=== PATIENT | male | born 1945 | race Caucasian/White ===

== ENCOUNTER 2017-10-25 16:12 | Emergency (ER) | payer MEDICARE, OTHER, SELFPAY ==
--- NOTE | 2017-10-25 16:18 | ED_ITS ---
HPI - Extremity Problem <ASHWIN Rodriguez - Last Filed: 10/25/17 19:52> General Chief complaint: Extremity Injury, Lower Stated complaint: STATES NEEDS A CORTISONE SHOT IN HIS HEEL Time Seen by Provider: 10/25/17 16:17 History of Present Illness HPI Narrative: 72-year-old male here for complaint of having heel pain into his left heel. 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 He is here requesting to have a cortisone shot to his left heel as he states this has helped him in the past. He has not seen his primary care provider for heel pain recently. He denies any trauma to the left heel. He reports increased pain when he is walking barefoot. He denies any other concerns or complaints at this time. Patient is ambulatory into the emergency room. Related Data Home Medications Medication Instructions Recorded Confirmed aspirin 81 mg PO QDAY #0 01/09/17 10/25/17 atorvastatin [Lipitor] 40 mg PO QDAY #0 01/09/17 10/25/17 citalopram 20 mg PO QDAY #0 01/09/17 10/25/17 insulin glargine [Lantus U-100 120 unit SQ QAM #0 01/09/17 10/25/17 Insulin] metformin [Glucophage XR] 1,000 mg PO BID #0 01/09/17 10/25/17 propranolol 40 mg PO BID #0 01/09/17 10/25/17 tamsulosin [Flomax] 0.4 mg PO QDAY #0 01/09/17 10/25/17 tolterodine [Detrol] 2 mg PO QDAY #0 01/09/17 10/25/17 Previous Rx's Medication Instructions Recorded ibuprofen 800 mg PO TIDP PRN #20 tab 05/07/17 Allergies Allergy/AdvReac Type Severity Reaction Status Date / Time Iodinated Contrast- Oral and Allergy Severe ANAPHALAXIS Verified 10/25/17 16:26 IV Dye [IODINATED CONTRAST- ORAL AND IV DYE] levofloxacin [LEVOFLOXACIN] Allergy Unknown SWELLING Verified 10/25/17 16:26 lisinopril [LISINOPRIL] Allergy Unknown COUGH Verified 10/25/17 16:26 Review of Systems <ASHWIN Rodriguez - Last Filed: 10/25/17 19:52> Constitutional Denies chills, Denies fever(s), Denies lethargy and Denies weakness Eyes Denies change in vision, Denies eye discharge, Denies irritation and Denies loss of vision Cardiovascular Denies chest pain, Denies irregular heart rhythm, Denies lightheadedness, Denies palpitations and Denies orthopnea Gastrointestinal Gastrointestinal: Denies abdominal pain, Denies change in bowel habits, Denies diarrhea, Denies nausea and Denies vomiting Musculoskeletal Comments: Left heel pain Integumentary/Breasts Denies pruritus, Denies erythema, Denies rash and Denies wounds Neurologic Denies loss of vision and Denies weakness Endocrine Denies palpitations Exam <ASHWIN Rodriguez - Last Filed: 10/25/17 19:52> Initial Vital Signs Initial Vital Signs: Vital Signs Temperature 98.4 F 10/25/17 16:20 Pulse Rate 78 10/25/17 16:20 Respiratory Rate 16 10/25/17 16:20 Blood Pressure 131/62 H 10/25/17 16:20 Pulse Oximetry 98 10/25/17 16:20 Const General: cooperative and well developed Nutritional Appearance: well nourished Orientation: alert, awake, oriented x3 and not confused Eyes General: appearance normal, both eyes and all related structures Eyelids: eyelids normal Conjunctivae: conjunctivae normal Sclera: sclerae normal Pupils: PERRL EOM: EOM intact bilaterally Resp Effort & Inspection: normal respiratory effort, able to speak in complete sentences, no respiratory distress and no use of accessory muscles Auscultation: clear to auscultation bilaterally, no rales, no rhonchi and no wheezes Cardio Rate: regular rate Rhythm: regular rhythm Heart Sounds: no click, no gallops, no murmurs and no rubs Extrem Other: Left heel atraumatic. No deformities. No erythema no swelling no ecchymosis. Distal sensation is intact. Full range of motion. Distal pulses intact. Pain with palpation at the anterior plantar portion of left heel. No plantar pain with palpation of. <Stiven Davis DO - Last Filed: 10/30/17 20:51> Initial Vital Signs Initial Vital Signs: Vital Signs Temperature 98.4 F 10/25/17 16:20 Pulse Rate 78 10/25/17 16:20 Respiratory Rate 16 10/25/17 16:20 Blood Pressure 131/62 H 10/25/17 16:20 Pulse Oximetry 98 10/25/17 16:20 Course <ASHWIN Rodriguez - Last Filed: 10/25/17 19:52> Vital Signs - 8 hr 10/25/17 16:20 Temperature 98.4 F Pulse Rate 78 Respiratory Rate 16 Blood Pressure 131/62 H Pulse Oximetry 98 <Stiven Davis DO - Last Filed: 10/30/17 20:51> Vital Signs - 8 hr 10/25/17 16:20 Temperature 98.4 F Pulse Rate 78 Respiratory Rate 16 Blood Pressure 131/62 H Pulse Oximetry 98 MDM - Extremity (Nontraumatic) <ASHWIN Rodriguez - Last Filed: 10/25/17 19:52> MDM Narrative Medical decision making narrative: Signs and symptoms consistent with Chronic pain related subjective report of heel spur. Patient informed that we do not do cortisone shots in the emergency room. He is instructed to follow up with primary care provider and consider podiatry referral. [id number] ibuprofen or naproxen as needed for any discomfort. Patient informed to perform stretching of the plantar region to help with symptoms. He is also instructed to wear supportive shoes with good inserts to also help his symptoms. Return emergency room for any worsening symptoms. Discharge Plan Departure Patient Disposition: Home, Self-Care Clinical Impression: Chronic heel pain Discharge Date/Time: 10/25/17 16:43 Interventions: ED Discharge Assessment Last Done: 10/25/17 16:42 Instructions: DI for Foot Pain Activity Restrictions/Additional Instructions: Recommended using [id number] ibuprofen or naproxen for your symptoms. Try stretching of the plantar regions of your feet to see if it helps symptoms. Wear supportive shoes with inserts for comfort and support. Follow up with primary care provider consider podiatry referral for continued symptoms. For any worsening symptoms return to the emergency room. Prescriptions: No Action atorvastatin [Lipitor] 40 MG tablet 40 mg PO QDAY Qty: 0 RF: 0 insulin glargine [Lantus U-100 Insulin] 100 UNIT/1 ML solution 120 unit SQ QAM Qty: 0 RF: 0 aspirin 81 MG tablet,delayed release (DR/EC) 81 mg PO QDAY Qty: 0 RF: 0 tolterodine [Detrol] 2 MG tablet 2 mg PO QDAY Qty: 0 RF: 0 citalopram 20 MG tablet 20 mg PO QDAY Qty: 0 RF: 0 tamsulosin [Flomax] 0.4 MG capsule,extended release 24hr 0.4 mg PO QDAY Qty: 0 RF: 0 propranolol 40 MG tablet 40 mg PO BID Qty: 0 RF: 0 metformin [Glucophage XR] 500 MG tablet extended release 24 hr 1,000 mg PO BID Qty: 0 RF: 0 ibuprofen 800 MG tablet 800 mg PO TIDP PRNQty: 20 RF: 0 Referrals: [facility] [Provider Group] <Stiven Davis, DO - Last Filed: 10/30/17 20:51> Cosign ED Attending Shona Attestation: I was immediately available in the department for consultation. Documentation has been reviewed. I agree with assessment and plan.
[2017-10-25 16:20] VITALS: BP 131/62; PULSE 78; RESP 16; TEMP 36.9; O2SAT 98; BMI 34.8
== END 2017-10-25 16:43 | disposition home or self-care (01) ==
PROVIDERS: Emergency Provider Nurse Practitioner Family
DX: M79.672 Pain in left foot (principal); G89.29 Other chronic pain
CPT/HCPCS: 99282

== ENCOUNTER 2018-06-10 13:59 | Emergency (ER) | payer MEDICARE, OTHER, SELFPAY ==
[2018-06-10 14:11] VITALS: BP 145/71; PULSE 81; RESP 20; TEMP 36.3; O2SAT 95
--- NOTE | 2018-06-10 16:31 | ED.EAR ---
HPI - Ear Problem General Chief complaint: Ear Stated complaint: EARS PLUGGED UP,SENSE OF BALANCE GONE Time Seen by Provider: 06/10/18 16:16 Source: patient and family () Mode of arrival: ambulatory Limitations: no limitations History of Present Illness HPI Narrative: This is a 72-year-old male who comes to the emergency department with complaint of right ear feeling full. He has a little bit of similar symptoms on the left but not as extensively. He feels like he is on airplane the can't clear his ears. He has not been able to pop his ears or clear them. He has pressure in both ears. Patient does not have any pain, he has had some nasal congestion but states he is normally congested. No fevers. No headaches. No vision changes. No numbness, no weakness. Patient states he feels very off balance like he is going to fall down. Patient states that when he lays down rolled over on his side feels like the room is spinning. He will feel little nauseated with that happens but otherwise no nausea or vomiting. No other GI or urinary symptoms. I and his significant other state that this started came on quickly the other day. He has had symptoms for over a week. Related Data Home Medications Medication Instructions Recorded Confirmed aspirin 81 mg PO QDAY #0 01/09/17 10/25/17 atorvastatin [Lipitor] 40 mg PO DAILY #0 01/09/17 06/10/18 citalopram 20 mg PO DAILY #0 01/09/17 06/10/18 insulin glargine [Lantus U-100 120 unit SQ QAM #0 01/09/17 10/25/17 Insulin] propranolol 40 mg PO BID #0 01/09/17 06/10/18 tamsulosin [Flomax] 0.4 mg PO QDAY #0 01/09/17 06/10/18 aspirin [Aspir-81] 81 mg PO DAILY 06/10/18 06/10/18 insulin lispro [Humalog KwikPen 06/10/18 Insulin] metformin 1,000 mg PO BID 06/10/18 06/10/18 tolterodine 2 mg PO DAILY 06/10/18 06/10/18 Previous Rx's Medication Instructions Recorded ibuprofen 800 mg PO TIDP PRN #20 tab 05/07/17 meclizine 25 mg PO BID-TID PRN #10 tab 06/10/18 Allergies Allergy/AdvReac Type Severity Reaction Status Date / Time Iodinated Contrast- Oral and Allergy Severe ANAPHALAXIS Verified 10/25/17 16:26 IV Dye [IODINATED CONTRAST- ORAL AND IV DYE] levofloxacin [LEVOFLOXACIN] Allergy Unknown SWELLING Verified 10/25/17 16:26 lisinopril [LISINOPRIL] Allergy Unknown COUGH Verified 10/25/17 16:26 Review of Systems Review of Systems All systems reviewed & are unremarkable except as noted in HPI and below Constitutional Denies chills, Denies fever(s), Denies headache(s) and Denies weakness ENT Ears, Nose, Mouth, and Throat: Reports as per HPI, Reports abnormal hearing (mildly decreased right), Reports vertigo, Denies ear discharge, Denies otalgia, Denies facial pain, Denies headache(s), Reports nasal congestion, Denies neck pain, Reports disequilibrium, Denies post nasal drip, Denies sinus pain, Denies sinus pressure, Denies sore throat and Denies throat swelling Cardiovascular Denies chest pain, Denies diaphoresis, Denies syncope, Denies lightheadedness and Denies dyspnea Respiratory Denies dyspnea Gastrointestinal Gastrointestinal: Denies abdominal pain, Denies change in bowel habits, Denies diarrhea, Reports nausea (with vertigo symptoms) and Denies vomiting Genitourinary Denies hematuria, Denies flank pain, Denies urinary incontinence and Denies urinary urgency Musculoskeletal Reports abnormal gait (off balance), Denies neck pain and Denies numbness Integumentary/Breasts Denies rash Neurologic Reports abnormal hearing (mildly decreased right), Reports abnormal gait (off balance), Reports vertigo, Denies syncope, Denies headache(s), Denies focal weakness, Denies numbness, Denies other visual disturbances, Denies paresthesias, Reports disequilibrium and Denies weakness Allergic/Immunologic Denies throat swelling [facility] Medical History Diabetes (Acute) Hypercholesteremia (Acute) Hypertension (Acute) Peripheral neuropathy (Acute) Surgical History S/P CABG (coronary artery bypass graft) (Acute) Social History Smoking Status: Never smoker alcohol intake: current substance use type: does not use Exam Narrative Exam Narrative: GEN: well nourished, well appearing Male: normal external examination, no penile discharge or lesions, testicles non-tender, cremasteric reflex intact, no inguinal hernias noted., alert and oriented x 3, patient appears to be in mild distress. HEENT: Atraumatic, pupils are equal round reactive to light, extraocular movements are intact, nares are clear, TMs on right is obstructed by cerumen, right able to visualize partial TM with no bulge or erythema, there is no conjunctival pallor. Throat is clear without any exudates, erythema, tonsillar enlargement or uvular deviation, no facial droop, normal speech. HEART: Regular rate and rhythm without murmur, clicks, rubs. No carotid bruits, pulses are equal in upper and lower extremities LUNGS:Lungs clear to auscultation, no wheezes, rales, crackles, chest moves symmetrically ABD:bowel sounds normal, soft, non-tender, no guarding, rebound, rigidity, no masses noted, no hepatosplenomegaly :No CVA tenderness MSCL: Non-tender, no muscle atrophy, muscles strength 5/5 upper and lower extremities, full range of motion NEURO:CN 2-12 intact, sensation normal, reflexes 2/4 upper and lower extremities. finger nose finger test normal, heel espinal test normal. Initial Vital Signs Initial Vital Signs: Vital Signs Temperature 97.3 F L 06/10/18 14:11 Pulse Rate 81 06/10/18 14:11 Respiratory Rate 20 06/10/18 14:11 Blood Pressure 145/71 H 06/10/18 14:11 Pulse Oximetry 95 06/10/18 14:11 Course Orders Ordered: Discontinued Medications Meclizine HCl (Antivert) 25 mg PO NOW ONE Stop: 06/10/18 17:05 Last Admin: 06/10/18 17:28 Dose: 25 mg Vital Signs - 8 hr 06/10/18 14:11 Temperature 97.3 F L Pulse Rate 81 Respiratory Rate 20 Blood Pressure 145/71 H Pulse Oximetry 95 Medical Decision Making Imaging Data CT scan - head: Radiologist's impression: [address] [address] [address] Scan Report Signed Patient: Alex Dunn MR#: [id number] : 1945 Acct:[id number] Age/Sex: 72 / M Date of Service: 06/10/18 Loc: ED Accession Number: [id number] Procedure: CT head/brain wo con Ordering Provider: Brooklynn Mcclure D.O. PROCEDURE: CT HEAD/BRAIN WO CON INDICATIONS: vertigo symptoms x 1 week TECHNIQUE: Noncontrast 4.5 mm thick angled axial sections acquired from the foramen magnum to the vertex, with coronal and sagittal reformats. For radiation dose reduction, the following was used: automated exposure control, adjustment of mA and/or kV according to patient size. COMPARISON: None. FINDINGS: Image quality: Excellent. CSF spaces: Basal cisterns are patent. No extra-axial fluid collections. The ventricles are symmetric in size and shape. Brain: No intracranial bleeds or masses. There is cerebral volume loss for age, with resultant ventricular and sulcal prominence. There are periventricular and deep white matter chronic small vessel ischemic changes. There is intracranial internal carotid artery atherosclerosis. Skull and face: Calvarium and visualized facial bones appear intact, without suspicious lesions. Sinuses: Visualized sinuses and mastoids are clear. IMPRESSION: Normal for age, source of current vertigo symptoms is not seen. Dictated by: Sae Wilder M.D. on 06/10/2018 at 17:27 Approved by: Sae Wilder M.D. on 06/10/2018 at 17:28 [facility] Narrative Medical decision making narrative: Patient has a significant cerumen impaction on the right, moderate on the left. After the [place] drops and irrigation ears are both almost completely clear. Patient has hearing is much better he does not have as much pressure particularly on the right side. He still has a little bit of vertigo symptoms but is actually able to walk very well without any major issues. We discussed there can be other causes, his stroke scale is negative but did get a head CT to make sure there are no other changes such as mass. With his acute onset this is unlikely. Discussed with patient causes such as labyrinthitis, as well as a variety of other causes. He is to follow up with ENT. I discussed he can try meclizine. Avoid any alcohol with this medication. Discussed signs and symptoms reasons to return. Patient ambulating without issue afterwards. Discharge Plan Departure Patient Disposition: Home Clinical Impression: Cerumen impaction Discharge Date/Time: 06/10/18 17:58 Interventions: ED Discharge Assessment Last Done: 06/10/18 17:58 Instructions: DI for Vertigo Activity Restrictions/Additional Instructions: Follow-up with primary care and/or ENT regarding your vertigo like symptoms. Call tomorrow for an appointment. You may take meclizine 1-2 tablets every 6-8 hours as needed for vertigo like symptoms. This medication can make you sleepy do not drive, perform hazards activities or make any major decisions while taking it. Return to the emergency department for fevers, sudden severe headaches, new vision changes, new weakness, numbness or difficulty with walking safely periods if you are having any other new difficulty with movement of your extremities. Prescriptions: New meclizine 25 mg tablet 25 mg PO BID-TID PRN (Reason: vertigo) Qty: 10 RF: 0 No Action atorvastatin [Lipitor] 40 MG tablet 40 mg PO DAILY Qty: 0 RF: 0 insulin glargine [Lantus U-100 Insulin] 100 UNIT/1 ML solution 120 unit SQ QAM Qty: 0 RF: 0 aspirin 81 MG tablet,delayed release (DR/EC) 81 mg PO QDAY Qty: 0 RF: 0 citalopram 20 MG tablet 20 mg PO DAILY Qty: 0 RF: 0 tamsulosin [Flomax] 0.4 MG capsule,extended release 24hr 0.4 mg PO QDAY Qty: 0 RF: 0 propranolol 40 MG tablet 40 mg PO BID Qty: 0 RF: 0 ibuprofen 800 MG tablet 800 mg PO TIDP PRNQty: 20 RF: 0 tolterodine 2 mg capsule,extended release 24hr 2 mg PO DAILY RF: 0 metformin 1,000 mg tablet 1,000 mg PO BID RF: 0 insulin lispro [Humalog KwikPen Insulin] 100 unit/mL insulin pen RF: 0 aspirin [Aspir-81] 81 mg Tablet,Delayed Release (Dr/Ec) 81 mg PO DAILY RF: 0 Referrals: Neil Christianson MD [Physician] -
--- NOTE | 2018-06-10 16:36 | ED_ITS ---
HPI - Ear Problem General Chief complaint: Ear Stated complaint: EARS PLUGGED UP,SENSE OF BALANCE GONE Time Seen by Provider: 06/10/18 16:16 Source: patient and family () Mode of arrival: ambulatory Limitations: no limitations History of Present Illness HPI Narrative: This is a 72-year-old male who comes to the emergency department with complaint of right ear feeling full. He has a little bit of similar symptoms on the left but not as extensively. He feels like he is on airplane the can't clear his ears. He has not been able to pop his ears or clear them. He has pressure in both ears. Patient does not have any pain, he has had some nasal congestion but states he is normally congested. No fevers. No headaches. No vision changes. No numbness, no weakness. Patient states he feels very off balance like he is going to fall down. Patient states that when he lays down rolled over on his side feels like the room is spinning. He will feel little nauseated with that happens but otherwise no nausea or vomiting. No other GI or urinary symptoms. I and his significant other state that this started came on quickly the other day. He has had symptoms for over a week. Related Data Home Medications Medication Instructions Recorded Confirmed aspirin 81 mg PO QDAY #0 01/09/17 10/25/17 atorvastatin [Lipitor] 40 mg PO DAILY #0 01/09/17 06/10/18 citalopram 20 mg PO DAILY #0 01/09/17 06/10/18 insulin glargine [Lantus U-100 120 unit SQ QAM #0 01/09/17 10/25/17 Insulin] propranolol 40 mg PO BID #0 01/09/17 06/10/18 tamsulosin [Flomax] 0.4 mg PO QDAY #0 01/09/17 06/10/18 aspirin [Aspir-81] 81 mg PO DAILY 06/10/18 06/10/18 insulin lispro [Humalog KwikPen 06/10/18 Insulin] metformin 1,000 mg PO BID 06/10/18 06/10/18 tolterodine 2 mg PO DAILY 06/10/18 06/10/18 Previous Rx's Medication Instructions Recorded ibuprofen 800 mg PO TIDP PRN #20 tab 05/07/17 meclizine 25 mg PO BID-TID PRN #10 tab 06/10/18 Allergies Allergy/AdvReac Type Severity Reaction Status Date / Time Iodinated Contrast- Oral and Allergy Severe ANAPHALAXIS Verified 10/25/17 16:26 IV Dye [IODINATED CONTRAST- ORAL AND IV DYE] levofloxacin [LEVOFLOXACIN] Allergy Unknown SWELLING Verified 10/25/17 16:26 lisinopril [LISINOPRIL] Allergy Unknown COUGH Verified 10/25/17 16:26 Review of Systems Review of Systems All systems reviewed & are unremarkable except as noted in HPI and below Constitutional Denies chills, Denies fever(s), Denies headache(s) and Denies weakness ENT Ears, Nose, Mouth, and Throat: Reports as per HPI, Reports abnormal hearing ( mildly decreased right), Reports vertigo, Denies ear discharge, Denies otalgia, Denies facial pain, Denies headache(s), Reports nasal congestion, Denies neck pain, Reports disequilibrium, Denies post nasal drip, Denies sinus pain, Denies sinus pressure, Denies sore throat and Denies throat swelling Cardiovascular Denies chest pain, Denies diaphoresis, Denies syncope, Denies lightheadedness and Denies dyspnea Respiratory Denies dyspnea Gastrointestinal Gastrointestinal: Denies abdominal pain, Denies change in bowel habits, Denies diarrhea, Reports nausea (with vertigo symptoms) and Denies vomiting Genitourinary Denies hematuria, Denies flank pain, Denies urinary incontinence and Denies urinary urgency Musculoskeletal Reports abnormal gait (off balance), Denies neck pain and Denies numbness Integumentary/Breasts Denies rash Neurologic Reports abnormal hearing (mildly decreased right), Reports abnormal gait (off balance), Reports vertigo, Denies syncope, Denies headache(s), Denies focal weakness, Denies numbness, Denies other visual disturbances, Denies paresthesias , Reports disequilibrium and Denies weakness Allergic/Immunologic Denies throat swelling [facility] Medical History Diabetes (Acute) Hypercholesteremia (Acute) Hypertension (Acute) Peripheral neuropathy (Acute) Surgical History S/P CABG (coronary artery bypass graft) (Acute) Social History Smoking Status: Never smoker alcohol intake: current substance use type: does not use Exam Narrative Exam Narrative: GEN: well nourished, well appearing Male: normal external examination, no penile discharge or lesions, testicles non-tender, cremasteric reflex intact, no inguinal hernias noted., alert and oriented x 3, patient appears to be in mild distress. HEENT: Atraumatic, pupils are equal round reactive to light, extraocular movements are intact, nares are clear, TMs on right is obstructed by cerumen, right able to visualize partial TM with no bulge or erythema, there is no conjunctival pallor. Throat is clear without any exudates, erythema, tonsillar enlargement or uvular deviation, no facial droop, normal speech. HEART: Regular rate and rhythm without murmur, clicks, rubs. No carotid bruits , pulses are equal in upper and lower extremities LUNGS:Lungs clear to auscultation, no wheezes, rales, crackles, chest moves symmetrically ABD:bowel sounds normal, soft, non-tender, no guarding, rebound, rigidity, no masses noted, no hepatosplenomegaly :No CVA tenderness MSCL: Non-tender, no muscle atrophy, muscles strength 5/5 upper and lower extremities, full range of motion NEURO:CN 2-12 intact, sensation normal, reflexes 2/4 upper and lower extremities. finger nose finger test normal, heel espinal test normal. Initial Vital Signs Initial Vital Signs: Vital Signs Temperature 97.3 F L 06/10/18 14:11 Pulse Rate 81 06/10/18 14:11 Respiratory Rate 20 06/10/18 14:11 Blood Pressure 145/71 H 06/10/18 14:11 Pulse Oximetry 95 06/10/18 14:11 Course Orders Ordered: Discontinued Medications Meclizine HCl (Antivert) 25 mg PO NOW ONE Stop: 06/10/18 17:05 Last Admin: 06/10/18 17:28 Dose: 25 mg Vital Signs - 8 hr 06/10/18 14:11 Temperature 97.3 F L Pulse Rate 81 Respiratory Rate 20 Blood Pressure 145/71 H Pulse Oximetry 95 Medical Decision Making Imaging Data CT scan - head: Radiologist's impression: [address] [address] [address] Scan Report Signed Patient: Alex Dunn MR#: [id number] : 1945 Acct:[id number] Age/Sex: 72 / M Date of Service: 06/10/18 Loc: ED Accession Number: [id number] Procedure: CT head/brain wo con Ordering Provider: Brooklynn Mcclure D.O. PROCEDURE: CT HEAD/BRAIN WO CON INDICATIONS: vertigo symptoms x 1 week TECHNIQUE: Noncontrast 4.5 mm thick angled axial sections acquired from the foramen magnum to the vertex, with coronal and sagittal reformats. For radiation dose reduction, the following was used: automated exposure control, adjustment of mA and/or kV according to patient size. COMPARISON: None. FINDINGS: Image quality: Excellent. CSF spaces: Basal cisterns are patent. No extra-axial fluid collections. The ventricles are symmetric in size and shape. Brain: No intracranial bleeds or masses. There is cerebral volume loss for age , with resultant ventricular and sulcal prominence. There are periventricular and deep white matter chronic small vessel ischemic changes. There is intracranial internal carotid artery atherosclerosis. Skull and face: Calvarium and visualized facial bones appear intact, without suspicious lesions. Sinuses: Visualized sinuses and mastoids are clear. IMPRESSION: Normal for age, source of current vertigo symptoms is not seen. Dictated by: Sae Wilder M.D. on 06/10/2018 at 17:27 Approved by: Sae Wilder M.D. on 06/10/2018 at 17:28 [facility] Narrative Medical decision making narrative: Patient has a significant cerumen impaction on the right, moderate on the left. After the [place] drops and irrigation ears are both almost completely clear. Patient has hearing is much better he does not have as much pressure particularly on the right side. He still has a little bit of vertigo symptoms but is actually able to walk very well without any major issues. We discussed there can be other causes, his stroke scale is negative but did get a head CT to make sure there are no other changes such as mass. With his acute onset this is unlikely. Discussed with patient causes such as labyrinthitis, as well as a variety of other causes. He is to follow up with ENT. I discussed he can try meclizine. Avoid any alcohol with this medication. Discussed signs and symptoms reasons to return. Patient ambulating without issue afterwards. Discharge Plan Departure Patient Disposition: Home Clinical Impression: Cerumen impaction Discharge Date/Time: 06/10/18 17:58 Interventions: ED Discharge Assessment Last Done: 06/10/18 17:58 Instructions: DI for Vertigo Activity Restrictions/Additional Instructions: Follow-up with primary care and/or ENT regarding your vertigo like symptoms. Call tomorrow for an appointment. You may take meclizine 1-2 tablets every 6-8 hours as needed for vertigo like symptoms. This medication can make you sleepy do not drive, perform hazards activities or make any major decisions while taking it. Return to the emergency department for fevers, sudden severe headaches, new vision changes, new weakness, numbness or difficulty with walking safely periods if you are having any other new difficulty with movement of your extremities. Prescriptions: New meclizine 25 mg tablet 25 mg PO BID-TID PRN (Reason: vertigo) Qty: 10 RF: 0 No Action atorvastatin [Lipitor] 40 MG tablet 40 mg PO DAILY Qty: 0 RF: 0 insulin glargine [Lantus U-100 Insulin] 100 UNIT/1 ML solution 120 unit SQ QAM Qty: 0 RF: 0 aspirin 81 MG tablet,delayed release (DR/EC) 81 mg PO QDAY Qty: 0 RF: 0 citalopram 20 MG tablet 20 mg PO DAILY Qty: 0 RF: 0 tamsulosin [Flomax] 0.4 MG capsule,extended release 24hr 0.4 mg PO QDAY Qty: 0 RF: 0 propranolol 40 MG tablet 40 mg PO BID Qty: 0 RF: 0 ibuprofen 800 MG tablet 800 mg PO TIDP PRNQty: 20 RF: 0 tolterodine 2 mg capsule,extended release 24hr 2 mg PO DAILY RF: 0 metformin 1,000 mg tablet 1,000 mg PO BID RF: 0 insulin lispro [Humalog KwikPen Insulin] 100 unit/mL insulin pen RF: 0 aspirin [Aspir-81] 81 mg Tablet,Delayed Release (Dr/Ec) 81 mg PO DAILY RF: 0 Referrals: Neil Christianson MD [Physician] -
--- NOTE | 2018-06-10 17:03 | DI.CT.S_ITS ---
PROCEDURE: CT HEAD/BRAIN WO CON INDICATIONS: vertigo symptoms x 1 week TECHNIQUE: Noncontrast 4.5 mm thick angled axial sections acquired from the foramen magnum to the vertex, with coronal and sagittal reformats. For radiation dose reduction, the following was used: automated exposure control, adjustment of mA and/or kV according to patient size. COMPARISON: None. FINDINGS: Image quality: Excellent. CSF spaces: Basal cisterns are patent. No extra-axial fluid collections. The ventricles are symmetric in size and shape. Brain: No intracranial bleeds or masses. There is cerebral volume loss for age, with resultant ventricular and sulcal prominence. There are periventricular and deep white matter chronic small vessel ischemic changes. There is intracranial internal carotid artery atherosclerosis. Skull and face: Calvarium and visualized facial bones appear intact, without suspicious lesions. Sinuses: Visualized sinuses and mastoids are clear. IMPRESSION: Normal for age, source of current vertigo symptoms is not seen. Dictated by: Sae Wilder M.D. on 06/10/2018 at 17:27 Approved by: Sae Wilder M.D. on 06/10/2018 at 17:28
[2018-06-10] MEDS: MECLIZINE HCL 12.5 MG TABLET 25 MG PO (17:28)
[2018-06-10 17:40] VITALS: BP 145/85; PULSE 75; RESP 16; O2SAT 92
[2018-06-10 17:58] VITALS: BP 148/64; PULSE 64; RESP 14; TEMP 36.3; O2SAT 100
== END 2018-06-10 17:58 | disposition home or self-care (01) ==
PROVIDERS: Emergency Provider Emergency Medicine
DX: H61.20 Impacted cerumen, unspecified ear (principal); R42 Dizziness and giddiness
CPT/HCPCS: 69209; 70450; 99283

== ENCOUNTER → 2018-08-21 10:35 | Outpatient (CLI) | payer MEDICARE, OTHER, SELFPAY ==
[2018-08-21 11:14] LABS: Add Manual Diff / Slide Review NO; Basophils Absolute Auto 100 /uL (0-100); Basophils Percent Auto 0.8 % (0-2); Eosinophils Absolute Auto 200 /uL (0-450); Eosinophils Percent Auto 2.2 % (2-4); Hemoglobin 13.4 g/dL (13.5-17.5); Lymphocytes Absolute Auto 1500 /uL (1100-4500); Lymphocytes Percent Auto 18.7 % (25-40); Mean Corpuscular HGB Conc 33.6 % (30-36); Mean Corpuscular Hemoglobin 30.8 PG (26-34); Mean Corpuscular Volume 91.7 fL (80-100); Monocytes Absolute Auto 900 /uL (0-900); Monocytes Percent Auto 11.3 % (3-14); Neutrophils Absolute Auto 5500 /uL (1500-7000); Platelet Count 389 X10^3/uL (150-400); Red Blood Cell Count 4.36 X10^6/uL (4.5-5.9); Red Cell Distribution Width 13.4 % (11.6-14.8); White Blood Cell Count 8.2 X10^3/uL (4.5-11.0)
[2018-08-21 11:16] LABS: Hemoglobin A1C% w Est Avg Glu 8.4 % (4.0-6.0)
[2018-08-21 12:13] LABS: HEMOLYSIS < 15 (0-50); Iron 70 ug/dL (49-181)
[2018-08-21 12:17] LABS: BUN Creatinine Ratio 28.9 (6-22); Blood Urea Nitrogen 26 mg/dL (9-20); Calcium 9.4 mg/dL (8.4-10.2); Carbon Dioxide 28 mmol/L (22-32); Chloride 99 mmol/L (98-107); Estimated Glomerular Filt Rate > 60.0 mL/min (>60); Glucose 89 mg/dL (80-110); HEMOLYSIS 20 (0-50); Sodium 140 mmol/L (137-145)
[2018-08-21 12:18] LABS: Potassium 6.1 mmol/L (3.4-5.1)
[2018-08-21 12:24] LABS: Percent Iron Saturation 23 % (20-50); Total Iron Binding Capacity 306 ug/dL (261-462); Transferrin 234 mg/dL (206-381)
[2018-08-21 12:33] LABS: Vitamin D 25 Hydroxy (D3) 25.1 ng/mL (30.0-100.0)
== END ==
PROVIDERS: PCP Student in an Organized Health Care Education/Training Program; Visit Provider Student in an Organized Health Care Education/Training Program
DX: E11.69 Type 2 diabetes mellitus with other specified complication (principal); E66.9 Obesity, unspecified; I10 Essential (primary) hypertension; E55.9 Vitamin D deficiency, unspecified; K92.2 Gastrointestinal hemorrhage, unspecified
CPT/HCPCS: 36415; 80048; 82306; 83036; 83540; 83550; 85025

== ENCOUNTER → 2018-09-02 08:55 | Outpatient (CLI) | payer MEDICARE, OTHER, SELFPAY ==
--- NOTE | 2018-09-02 08:57 | DI.US.S_ITS ---
PROCEDURE: US ABD AORTA ANEURYSM SCREEN INDICATIONS: ABDOMINAL AORTIC ANEURYSM SCREENING IN FORMER SMOKER TECHNIQUE: Real time scanning was performed of the aorta and iliac arteries, with image documentation. COMPARISON: None. FINDINGS: Aorta: Proximal aortic diameter measures 2.8 cm. Mid-aorta measures 2.5 cm. The distal aorta is not seen, secondary to overlying bowel gas. Iliac arteries: Right common iliac artery measures 1.9 cm. Left common iliac artery measures 1.7 cm. IMPRESSION: Negative for abdominal aortic aneurysm, although the proximal is near the upper limits of normal for size at 2.8 cm. Dictated by: Nicola Reina M.D. on 09/02/2018 at 9:00 Approved by: Nicola Reina M.D. on 09/02/2018 at 9:02
== END ==
PROVIDERS: PCP Student in an Organized Health Care Education/Training Program; Visit Provider Student in an Organized Health Care Education/Training Program
DX: Z13.6 Encounter for screening for cardiovascular disorders (principal); Z87.891 Personal history of nicotine dependence
CPT/HCPCS: 76706

== ENCOUNTER → 2018-12-10 14:14 | Outpatient (CLI) | payer MEDICARE, OTHER, SELFPAY ==
--- NOTE | 2018-12-10 14:16 | DI.RAD.S_ITS ---
PROCEDURE: XR FOOT LT MIN 3V INDICATIONS: foot infection TECHNIQUE: 3 views of the foot were acquired. COMPARISON: None. FINDINGS: Bones: No fractures or dislocations. No suspicious bony lesions. Screw arthrodesis of the first MTP joint. There is chronic osseous fusion. Hardware appears intact there is expected postoperative alignment. 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 Prominent plantar and posterior calcaneal spur. Mild diffuse MTP joint degeneration. Chronic callus formation involving the second metatarsal shaft. Soft tissues: No tibiotalar joint effusion. Achilles tendon appears normal. IMPRESSION: Severe great toe interphalangeal joint degeneration. Status post surgical fusion of the first MTP joint. Plantar and posterior calcaneal spur. Diffuse posttraumatic and degenerative changes as above. Dictated by: Henry Moreno M.D. on 12/10/2018 at 15:00 Approved by: Henry Moreno M.D. on 12/10/2018 at 15:02
== END ==
PROVIDERS: PCP Student in an Organized Health Care Education/Training Program; Visit Provider Hospitalist
DX: L08.9 Local infection of the skin and subcutaneous tissue, unspecified (principal); M19.072 Primary osteoarthritis, left ankle and foot; M77.32 Calcaneal spur, left foot; Z98.1 Arthrodesis status
CPT/HCPCS: 36415; 73630; 80048; 82043; 82570; 83036; 84133; 85025; 87070; 87075; 87147; 87186; 87205

== ENCOUNTER → 2018-12-10 14:15 | Outpatient (CLI) | payer MEDICARE, OTHER, SELFPAY ==
[2018-12-10 15:36] LABS: Blood Urea Nitrogen 22 mg/dL (9-20); Calcium 9.6 mg/dL (8.4-10.2); Carbon Dioxide 28 mmol/L (22-32); Chloride 101 mmol/L (98-107); Estimated Glomerular Filt Rate > 60.0 mL/min (>60); Glucose 157 mg/dL (80-110); HEMOLYSIS < 15 (0-50); Potassium 5.2 mmol/L (3.4-5.1); Sodium 142 mmol/L (137-145)
[2018-12-10 15:42] LABS: Add Manual Diff / Slide Review NO; Basophils Absolute Auto 0 /uL (0-100); Basophils Percent Auto 0.5 % (0-2); Eosinophils Absolute Auto 100 /uL (0-450); Eosinophils Percent Auto 1.3 % (2-4); Hematocrit 42.1 % (41-53); Hemoglobin 14.1 g/dL (13.5-17.5); Lymphocytes Absolute Auto 1900 /uL (1100-4500); Lymphocytes Percent Auto 17.9 % (25-40); Mean Corpuscular HGB Conc 33.5 % (30-36); Mean Corpuscular Hemoglobin 31.5 PG (26-34); Mean Corpuscular Volume 93.9 fL (80-100); Monocytes Absolute Auto 1300 /uL (0-900); Monocytes Percent Auto 11.9 % (3-14); Neutrophils Absolute Auto 7200 /uL (1500-7000); Neutrophils Percent Auto 68.4 % (50-75); Platelet Count 277 X10^3/uL (150-400); Red Blood Cell Count 4.49 X10^6/uL (4.5-5.9); Red Cell Distribution Width 13.7 % (11.6-14.8); White Blood Cell Count 10.5 X10^3/uL (4.5-11.0)
[2018-12-10 16:10] LABS: Hemoglobin A1C% w Est Avg Glu 7.2 % (4.0-6.0)
[2018-12-10 17:21] LABS: Creatinine Urine Random 147.7 mg/dL; Potassium Urine Random 38.8 mmol/L
[2018-12-10 20:17] LABS: Microalbumi Creatinin Ratio Ur 322.2 ug/mg CR (<30); Microalbumin Urine Random 47.6 mg/dL (0-1.6)
== END ==
PROVIDERS: PCP Student in an Organized Health Care Education/Training Program; Visit Provider Hospitalist
DX: E11.621 Type 2 diabetes mellitus with foot ulcer (principal); L97.509 Non-pressure chronic ulcer of other part of unspecified foot with unspecified severity; E66.9 Obesity, unspecified; E87.5 Hyperkalemia; I10 Essential (primary) hypertension
CPT/HCPCS: 36415; 80048; 82043; 82570; 83036; 84133; 85025; 87070; 87075; 87205

== ENCOUNTER → 2018-12-17 14:51 | Outpatient (CLI) | payer MEDICARE, OTHER, SELFPAY | PROVIDERS: PCP Student in an Organized Health Care Education/Training Program; Visit Provider Family Medicine | DX: E11.621 Type 2 diabetes mellitus with foot ulcer (principal); E11.40 Type 2 diabetes mellitus with diabetic neuropathy, unspecified; L97.521 Non-pressure chronic ulcer of other part of left foot limited to breakdown of skin | CPT/HCPCS: 11042; 99203; 99213 ==

== ENCOUNTER → 2018-12-24 11:17 | Outpatient (CLI) | payer MEDICARE, OTHER, SELFPAY | PROVIDERS: PCP Student in an Organized Health Care Education/Training Program; Visit Provider Family Medicine | DX: E11.621 Type 2 diabetes mellitus with foot ulcer (principal); E11.40 Type 2 diabetes mellitus with diabetic neuropathy, unspecified; L97.521 Non-pressure chronic ulcer of other part of left foot limited to breakdown of skin | CPT/HCPCS: 97597 ==

== ENCOUNTER → 2018-12-31 10:29 | Outpatient (CLI) | payer MEDICARE, OTHER, SELFPAY | PROVIDERS: PCP Student in an Organized Health Care Education/Training Program; Visit Provider Family Medicine | DX: E11.621 Type 2 diabetes mellitus with foot ulcer (principal); E11.40 Type 2 diabetes mellitus with diabetic neuropathy, unspecified; L97.521 Non-pressure chronic ulcer of other part of left foot limited to breakdown of skin; R60.0 Localized edema | CPT/HCPCS: 97597 ==

== ENCOUNTER → 2019-01-07 08:54 | Outpatient (CLI) | payer MEDICARE, OTHER, SELFPAY | PROVIDERS: PCP Student in an Organized Health Care Education/Training Program; Visit Provider Family Medicine | DX: E11.621 Type 2 diabetes mellitus with foot ulcer (principal); E11.40 Type 2 diabetes mellitus with diabetic neuropathy, unspecified; L97.521 Non-pressure chronic ulcer of other part of left foot limited to breakdown of skin; R60.0 Localized edema | CPT/HCPCS: 97597 ==

== ENCOUNTER → 2019-01-15 09:15 | Outpatient (CLI) | payer MEDICARE, OTHER, SELFPAY | PROVIDERS: PCP Student in an Organized Health Care Education/Training Program; Visit Provider Family Medicine | DX: E11.621 Type 2 diabetes mellitus with foot ulcer (principal); L97.522 Non-pressure chronic ulcer of other part of left foot with fat layer exposed | CPT/HCPCS: 99212 ==

== ENCOUNTER → 2019-01-16 12:08 | Outpatient (CLI) | payer MEDICARE, OTHER, SELFPAY ==
[2019-01-16 12:43] LABS: Hematocrit 38.5 % (41-53); Hemoglobin 12.9 g/dL (13.5-17.5); Mean Corpuscular HGB Conc 33.6 % (30-36); Mean Corpuscular Hemoglobin 30.9 PG (26-34); Mean Corpuscular Volume 92.2 fL (80-100); Platelet Count 249 X10^3/uL (150-400); Red Blood Cell Count 4.17 X10^6/uL (4.5-5.9); Red Cell Distribution Width 14.4 % (11.6-14.8)
== END ==
PROVIDERS: Family Provider Student in an Organized Health Care Education/Training Program; PCP Student in an Organized Health Care Education/Training Program; Visit Provider Podiatrist
DX: Z01.818 Encounter for other preprocedural examination (principal)
CPT/HCPCS: 36415; 85027; 93005; 93010

== ENCOUNTER 2019-02-13 08:14 | Day surgery (SDC) | payer MEDICARE, OTHER, SELFPAY ==
[2019-02-12 12:36] VITALS: BMI 36.6
[2019-02-13 08:45] VITALS: BP 157/90; PULSE 76; RESP 18; TEMP 36.1; O2SAT 96
[2019-02-13 08:52] VITALS: BMI 35.9
[2019-02-13] MEDS: LACTATED RINGERS 1,000 ML 42 ML IV (08:58)
[2019-02-13 09:02] VITALS: TEMP 37.4
--- NOTE | 2019-02-13 09:07 | SUR.PREOP ---
pt surgery being cancelled at this time and will be rescheduled for another time. Dr. Bettencourt cancelling procedure related to blood sugar reading and recent urinary complaints. Dr. Bettencourt called and spoke with pt's pcp and scheduled appt for pt to be seen with pcp today. pt iv dc'd and intact.
== END 2019-02-13 09:07 | disposition home or self-care (01) ==
LOC: OR 08:17
PROVIDERS: Family Provider Student in an Organized Health Care Education/Training Program; PCP Student in an Organized Health Care Education/Training Program; Visit Provider Podiatrist
PROC: (CPT 28285; principal; 2019-02-13 09:00)
DX: M20.42 Other hammer toe(s) (acquired), left foot (principal); M19.072 Primary osteoarthritis, left ankle and foot; E11.621 Type 2 diabetes mellitus with foot ulcer; E11.42 Type 2 diabetes mellitus with diabetic polyneuropathy; Z53.09 Procedure and treatment not carried out because of other contraindication; R31.0 Gross hematuria
CPT/HCPCS: 28108; J2405; J2704; J3010

== ENCOUNTER → 2019-02-13 15:15 | Outpatient (CLI) | payer MEDICARE, OTHER, SELFPAY ==
[2019-02-13 15:44] LABS: Appearance Urine UA SL CLOUDY; Bilirubin Urine UA NEGATIVE (NEGATIVE); Color Urine UA YELLOW; Glucose Urine UA TRACE g/dL (Negative); Ketones Urine UA NEGATIVE (NEGATIVE); Leukocyte Esterase Urine UA 1+ (NEGATIVE); Nitrite Urine UA POSITIVE (Negative); Occult Blood Urine UA 3+ (Negative); Protein Urine UA 2+ (Negative); Urobilinogen Urine UA 0.2 E.U./dL (0.2)
[2019-02-13 16:14] LABS: RBC Urine 1-5/HPF (0-5/HPF); Squamous Epithelial Cell Urine 0-1 /HPF (0-5/HPF); WBC Urine 10-30/HPF (0-5/HPF)
[2019-02-13 16:15] LABS: Bacteria Urine Many (>30); Culture Indicated Urine Specimen Cultured
== END ==
PROVIDERS: PCP Student in an Organized Health Care Education/Training Program; Visit Provider Student in an Organized Health Care Education/Training Program
DX: R30.0 Dysuria (principal); R31.9 Hematuria, unspecified
CPT/HCPCS: 81001; 87077; 87086; 87186

== ENCOUNTER 2019-03-28 09:12 | Day surgery (SDC) | payer MEDICARE, BC, SELFPAY ==
[2019-03-27 13:45] VITALS: BMI 36.6
[2019-03-28] VITALS (7 sets, daily range): BP systolic 123–142; BP diastolic 56–80; PULSE 75–85; RESP 15–20; TEMP 36.4–37.2; O2SAT 94–98; BMI 36.6
[2019-03-28] MEDS: LACTATED RINGERS 1,000 ML 42 ML IV (10:02)
--- NOTE | 2019-03-28 10:21 | PM.PREOP ---
Pre-operative Note Interval Note History & Physical reviewed/Exam performed by Physician: Yes Changes to H&P: No
--- NOTE | 2019-03-28 10:22 | PM.OP.1 ---
Operative Date/Time/Diagnoses Date of procedure: 03/28/19 Time of procedure: 10:22 Pre-op diagnosis: Left great hammertoe, bone spur Post-op diagnosis: same Procedure & Clinicians Procedure: Left great toe exostectomy Indications: Prominent spur of bone great toe pushing into second toe creating concern for wound. Conservative measures failed to alleviate this and he wished to have surgical intervention at this time. The discussion of reducing this one and also the more dorsomedial joint were reviewed, but after discussion, we both decided for healing purposes and the mechanics of the toe, we prefer to do the lateral one rather than both of them, unless there was an easy extension into that area without considerable disruption of healing or prior fusion. No contraindications to the procedure at this time. Surgeon: Victoria Bettencourt Click Yes if Unassisted: Yes Anesthesia Type: General Operative Notes Closure Type: primary Specimen(s): none sent Estimated Blood Loss (mL): 20 Blood products transfused: none Procedure in detail: The patient was brought to the operating room and placed on the operating table in the supine position. Tourniquet was placed about the left ankle. Patient is well- padded and appropriately supported. After induction of general anesthesia the left foot and ankle were prepped and draped in the usual aseptic manner. The tourniquet was inflated. The hallux was protected at the nail with an opsite dressing. Incision was made over the 1st interphalangeal joint dorsolaterally. The incision was deepened through subcutaneous tissues being careful to identify and retract all vital neurovascular structures. All bleeders were cauterized and ligated as necessary. The capsule was entered at the joint and this exposed the spurring and prominence of the interphalangeal base, and portion of a small spur on the dorsal joint. The saw, rongeur, and rasp were used to resect the joint spurs and prominences, and I was able to reduce a portion of the dorsal ossicle as well. A rasp was used to reduce the sharp edges of the bone. The area was irrigated with copious amounts normal sterile saline. Subcutaneous closure was closed performed with Vicryl. The tourniquet was deflated and a prompt hyperemic response was seen in the foot. Nylon suture used to close the skin. The foot was dressed with a lightly compressive sterile dressing. Patient was then placed in a postoperative shoe and transferred to PACU with vital signs stable. Complications: none Post-operative Condition: stable Disposition: PACU Plan for aftercare: Following a period of postoperative monitoring, the patient be discharged home on written and oral postoperative instructions including keeping the dressing dry and intact, avoiding significant ambulation on the foot, elevating the foot when seated home. DVT prevention techniques have been reviewed. Post op visit with me next week and I'll eval the suture removal time frame at that point.
[2019-03-28] MEDS: CEFAZOLIN 2 GM/100 ML FROZ.PIGGY IV (10:25)
--- NOTE | 2019-03-28 10:51 | SUR.OPER ---
Supine on padded OR bed, head on pillow, arms secured on padded arm boards at <90 degrees abduction, legs uncrossed, safety belt at thigh, bump under left hip, tape over blanket over right lower leg.
[2019-03-28] MEDS: BUPIVACAINE 0.5% (PF) VIAL 10 ML INJ (11:04)
[2019-03-28] MEDS: LIDOCAINE 2% INJ SDV 5 ML INJ (11:05)
== END 2019-03-28 12:55 | disposition home or self-care (01) ==
LOC: OR 09:16
PROVIDERS: PCP Student in an Organized Health Care Education/Training Program; Visit Provider Podiatrist
PROC: (CPT 28285; principal; 2019-03-28 10:45)
DX: M20.42 Other hammer toe(s) (acquired), left foot (principal); M25.775 Osteophyte, left foot; M77.8 Other enthesopathies, not elsewhere classified; M19.072 Primary osteoarthritis, left ankle and foot; E11.42 Type 2 diabetes mellitus with diabetic polyneuropathy; Z79.4 Long term (current) use of insulin; E66.9 Obesity, unspecified; G47.33 Obstructive sleep apnea (adult) (pediatric); I25.10 Atherosclerotic heart disease of native coronary artery without angina pectoris; Z95.1 Presence of aortocoronary bypass graft; I25.2 Old myocardial infarction
CPT/HCPCS: 28124; J0690; J2405; J2704; J3010

== ENCOUNTER 2019-04-10 12:49 | Day surgery (SDC) | payer MEDICARE, BC, SELFPAY ==
[2019-04-10 13:10] VITALS: BP 157/80; PULSE 82; RESP 15; TEMP 36; O2SAT 96; BMI 34.5
--- NOTE | 2019-04-10 13:35 | PM.HP.1 ---
History of Present Illness History of Present Illness Date Patient Seen: 04/10/19 Time Patient Seen: 13:36 Chief complaint: [address]03 SCREENING COLONOSCOPY Narrative: Patient presents for colorectal screening. Most recent colonoscopy was 10 years ago reportedly normal. On further history denies any recent gastrointestinal symptoms. No nausea, vomiting, abdominal pain, loss of appetite, unexplained weight loss, change in bowel habits, diarrhea, constipation, melena, hematochezia, or bright red blood per rectum. Patient History Medical History Cataracts, bilateral (Chronic ~2017) Cellulitis (Inactive) Depression (Acute) Diabetes (Chronic ~1988) Hepatitis (Resolved ~1966) HLD (hyperlipidemia) (Acute) Hypercholesteremia (Chronic) Hypertension (Chronic) Leishmaniasis (Chronic ~2015) Microalbuminuria (Acute) Peripheral neuropathy (Chronic) Psoriasis (Chronic ~1968) Serous otitis media (Inactive) UTI (urinary tract infection) (Acute 02/13/19) Vertigo (Chronic ~2017) Surgical History Anesthesia (Resolved) History of angioplasty (Resolved ~1985) History of laminectomy (Resolved) Hx of appendectomy (Acute) Hx of cholecystectomy (Acute) S/P CABG (coronary artery bypass graft) (Resolved ~1985) Family & Social History Family History Father Cancer Mother Heart disease Grandfather Heart disease Grandmother Heart disease Grandfather Heart disease Grandmother Heart disease Social History: household members spouse Tobacco & Substance use: Smoking Status Former smoker alcohol intake current alcohol intake frequency a few times a month Substance Use Type does not use Meds Home Medications and Allergies Home Medications Medication Instructions Recorded Confirmed Type aspirin 81 mg PO QDAY #0 01/09/17 04/10/19 History insulin glargine 100 unit/mL 60 unit SUBCUT BID #0 ml 12/18/18 04/10/19 History subcutaneous solution atorvastatin 40 mg tablet 40 mg PO DAILY #90 tab 01/01/19 04/10/19 Rx candesartan 4 mg tablet 2 mg PO DAILY #90 tab 01/01/19 04/10/19 Rx citalopram 20 mg tablet 20 mg PO DAILY #90 tab 01/01/19 04/10/19 Rx metformin 1,000 mg tablet 1,000 mg PO BID #180 tab 01/01/19 04/10/19 Rx propranolol 40 mg tablet 40 mg PO BID #180 tab 01/01/19 04/10/19 Rx tamsulosin 0.4 mg capsule 0.4 mg PO QDAY #90 cap 01/01/19 04/10/19 Rx tolterodine 2 mg capsule,extended 2 mg PO DAILY #90 cap 01/01/19 04/10/19 Rx release 24 hr glipizide 5 mg tablet 5 mg PO BID #180 tab 02/04/19 04/10/19 Rx Allergies Allergy/AdvReac Type Severity Reaction Status Date / Time Iodinated Contrast Media Allergy Severe ANAPHALAXIS Verified 03/28/19 09:50 [IODINATED CONTRAST- ORAL AND IV DYE] levofloxacin [LEVOFLOXACIN] Allergy Unknown Hives Verified 03/28/19 09:50 lisinopril [LISINOPRIL] Allergy Unknown COUGH Verified 03/28/19 09:50 Review of Systems Review of Systems ROS Unobtainable: All systems reviewed & are unremarkable except as noted in HPI and below Exam Vital Signs (past 8 hours): - 04/10/19 13:10 Temperature 96.8 F L Pulse Rate 82 Respiratory Rate 15 Blood Pressure 157/80 H Pulse Oximetry 96 Oxygen Delivery Method Room Air Narrative Exam Narrative: General-no acute distress, well nourished HEENT-moist mucous membranes, no scleral icterus Neck-supple, no lymphadenopathy Chest- non labored respirations, clear to auscultation bilaterally Cardiac-regular rate no peripheral edema Abdomen-soft, nontender, non distended Extremities-warm, well perfused Neurological-alert and oriented, no focal deficits Assessment & Plan Assessment and plan (1) Screening for colon cancer: Current visit: Yes Status: Acute Assessment & Plan narrative: The patient requires colorectal screening and colonoscopy is recommended. Technical details were discussed. Risks, benefits, alternatives explained. Risks including but not limited to myocardial infarction, aspiration, bleeding, pain, missed lesion, incomplete examination, need for further radiographic studies, colonic perforation, and need for major abdominal surgery were discussed. All questions were answered to their satisfaction, and they are in agreement with this plan.
[2019-04-10] MEDS: SODIUM CHLORIDE 0.9% 1,000 ML 200 ML IV (13:36)
[2019-04-10] MEDS: fentaNYL 250 MCG/5 ML INJ IV (13:53)
[2019-04-10] MEDS: MIDAZOLAM 5 MG/5 ML VIAL IV (14:04)
--- NOTE | 2019-04-10 14:14 | PM.OP.ENDO ---
Operative Date/Time/Diagnoses Date of procedure: 04/10/19 Time of procedure: 14:15 Pre-op diagnosis: Screening colonoscopy Post-op diagnosis: same Procedure & Clinicians Study performed: Colonoscopy Same procedure as scheduled: Yes Indications: This is a 73-year-old male with a previously normal colonoscopy 10 years ago presents for screening. Surgeon: Sal Vaca Procedure Notes SCOAP/Timeout: Performed Procedure in detail: Patient placed in left lateral decubitus position. Time out was performed. Procedural sedation was administered with Versed and Fentanyl. A rectal exam demonstrated no external hemorrhoids no internal masses. Colonoscopy scope was placed into the rectum and advanced through the colon to the cecum. The ileocecal valve was identified. The scope was then slowly withdrawn examining colon thoroughly in all directions. The colonoscopy was notable for the following 1. Sigmoid diverticulosis 2. Quality of prep excellent Scope withdrawal time: 10 Sedation minutes: 20 Findings: diverticulosis Specimen(s): none sent Complications: none Impression: Normal colonoscopy Post-procedure Recommendations: Colonscopy in 10 years Disposition: same day surgery
[2019-04-10 14:18] VITALS: BP 147/80; PULSE 75; RESP 18; TEMP 36.6; O2SAT 93
[2019-04-10 14:22] VITALS: BP 145/86; PULSE 74; RESP 17; O2SAT 94
[2019-04-10 14:27] VITALS: BP 145/74; PULSE 78; RESP 16; O2SAT 97
[2019-04-10 14:38] VITALS: BMI 34.5
[2019-04-10 14:50] VITALS: BP 153/80; PULSE 75; RESP 16; TEMP 36.7; O2SAT 98
== END 2019-04-10 14:56 | disposition home or self-care (01) ==
PROVIDERS: PCP Student in an Organized Health Care Education/Training Program; Visit Provider Surgery
PROC: 0DJD8ZZ Inspection of Lower Intestinal Tract, Via Natural or Artificial Opening Endoscopic (ICD-10-PCS; CPT 45378; principal; 2019-04-10 13:45)
DX: Z12.11 Encounter for screening for malignant neoplasm of colon (principal); E11.9 Type 2 diabetes mellitus without complications; E78.5 Hyperlipidemia, unspecified; I10 Essential (primary) hypertension; Z79.4 Long term (current) use of insulin; K57.30 Diverticulosis of large intestine without perforation or abscess without bleeding
CPT/HCPCS: G0121; 99152; J2250; J3010

== ENCOUNTER → 2019-04-24 15:19 | Outpatient (ROUT) | payer MEDICARE, BC, SELFPAY | PROVIDERS: PCP Student in an Organized Health Care Education/Training Program; Visit Provider Podiatrist | DX: T81.30XA Disruption of wound, unspecified, initial encounter (principal) | CPT/HCPCS: 87070; 87075; 87077; 87147; 87186; 87205 ==

== ENCOUNTER → 2019-04-25 14:43 | Outpatient (CLI) | payer MEDICARE, BC, SELFPAY | PROVIDERS: PCP Student in an Organized Health Care Education/Training Program; Visit Provider Family Medicine | DX: E11.621 Type 2 diabetes mellitus with foot ulcer (principal); L97.526 Non-pressure chronic ulcer of other part of left foot with bone involvement without evidence of necrosis; E11.40 Type 2 diabetes mellitus with diabetic neuropathy, unspecified; Z79.4 Long term (current) use of insulin | CPT/HCPCS: 11044; 99214 ==

== ENCOUNTER 2019-04-25 15:54 | Inpatient (IN) | payer MEDICARE, BC, SELFPAY ==
[2019-04-25] VITALS (7 sets, daily range): BP systolic 106–145; BP diastolic 50–84; PULSE 89–100; RESP 16–22; TEMP 36.6–37.3; O2SAT 94–98; BMI 36.7
--- NOTE | 2019-04-25 16:41 | ED_ITS ---
HPI - Fever General Chief Complaint: Fever Stated Complaint: LEFT FOOT INFECTION FEVER Time Seen by Provider: 04/25/19 16:00 Source: patient Mode of arrival: Wheelchair Limitations: no limitations History of Present Illness HPI Narrative: 73M diabetic former smoker presents at the request of wound care for evaluation of a rapidly worsening presumed cellulitis of his left foot. Patient had a bone spur Miles a off his left great toe about 1 month ago and has been having way describes as some complications ever since. He had been seen wound care and Orthopedics in follow-up but today wound care noted dramatic ally worsening redness of the great toe extending on the dorsum of his foot and a perceived red streak up to his ankle. The patient has had low-grade measured fever as well as shaking chills and fatigue. Recent wound culture notes Staph aureus Related Data Home Medications Medication Instructions Recorded Confirmed aspirin 81 mg PO QDAY #0 01/09/17 04/10/19 insulin glargine 100 unit/mL 60 unit SUBCUT BID #0 ml 12/18/18 04/10/19 subcutaneous solution Previous Rx's Medication Instructions Recorded atorvastatin 40 mg tablet 40 mg PO DAILY #90 tab 01/01/19 candesartan 4 mg tablet 2 mg PO DAILY #90 tab 01/01/19 citalopram 20 mg tablet 20 mg PO DAILY #90 tab 01/01/19 metformin 1,000 mg tablet 1,000 mg PO BID #180 tab 01/01/19 propranolol 40 mg tablet 40 mg PO BID #180 tab 01/01/19 tamsulosin 0.4 mg capsule 0.4 mg PO QDAY #90 cap 01/01/19 tolterodine 2 mg capsule,extended 2 mg PO DAILY #90 cap 01/01/19 release 24 hr glipizide 5 mg tablet 5 mg PO BID #180 tab 02/04/19 Allergies Allergy/AdvReac Type Severity Reaction Status Date / Time Iodinated Contrast Media Allergy Severe ANAPHALAXIS Verified 03/28/19 09:50 [IODINATED CONTRAST- ORAL AND IV DYE] levofloxacin [LEVOFLOXACIN] Allergy Unknown Hives Verified 03/28/19 09:50 lisinopril [LISINOPRIL] Allergy Unknown COUGH Verified 03/28/19 09:50 Review of Systems Constitutional Constitutional: Reports chills, Reports fatigue, Reports fever(s), Denies frequent falls, Denies lethargy and Reports weakness Eyes Eyes: Denies change in vision, Denies eye discharge, Denies irritation and Denies loss of vision ENT Ears, Nose, Mouth, and Throat: Denies change in voice, Denies dizziness, Denies neck pain, Denies sore throat and Denies throat swelling Cardiovascular Cardiovascular: Denies chest pain, Denies irregular heart rhythm, Denies lightheadedness, Denies palpitations, Denies dyspnea, Denies dyspnea on exertion and Denies orthopnea Respiratory Respiratory: Denies cough, Denies dyspnea, Denies dyspnea on exertion and Denies wheezing Gastrointestinal Gastrointestinal: Denies abdominal pain, Denies change in bowel habits, Denies diarrhea, Denies nausea and Denies vomiting Genitourinary Genitourinary: Denies hematuria, Denies flank pain, Denies urinary incontinence and Denies urinary urgency Musculoskeletal Musculoskeletal: Denies back pain, Denies muscle weakness, Denies neck pain, Denies numbness and Denies tingling Integumentary/Breasts Skin/Breast: Denies pruritus, Reports erythema, Denies rash and Reports wounds Neurologic Neurologic: Denies behavioral changes, Denies confusion, Denies dizziness, Denies frequent falls, Denies loss of vision, Denies numbness, Denies tingling and Reports weakness Psychiatric Psychiatric: Denies anxiety, Denies behavioral changes, Denies confusion, Denies depression, Denies homicidal ideation and Denies suicidal ideation Endocrine Endocrine: Reports fatigue, Denies flushing and Denies palpitations Hematologic/Lymphatic Hematologic/Lymphatic: Denies easy bruising Allergic/Immunologic Allergic/Immunologic: Denies urticaria, Denies throat swelling and Denies wheezing Patient History Medical History Cataracts, bilateral (Chronic ~2018) Cellulitis (Inactive) Depression (Acute) Diabetes (Chronic ~1988) Hepatitis (Resolved ~1966) HLD (hyperlipidemia) (Acute) Hypercholesteremia (Chronic) Hypertension (Chronic) Leishmaniasis (Chronic ~2015) Microalbuminuria (Acute) Peripheral neuropathy (Chronic) Psoriasis (Chronic ~1968) Serous otitis media (Inactive) UTI (urinary tract infection) (Acute 02/13/19) Vertigo (Chronic ~2017) Surgical History Anesthesia (Resolved) History of angioplasty (Resolved ~1985) History of laminectomy (Resolved) Hx of appendectomy (Acute) Hx of cholecystectomy (Acute) S/P CABG (coronary artery bypass graft) (Resolved ~1985) Family History Father Cancer Mother Heart disease Grandfather Heart disease Grandmother Heart disease Grandfather Heart disease Grandmother Heart disease Social History household members: spouse Smoking Status: Former smoker alcohol intake: current substance use type: does not use alcohol intake frequency: a few times a month Substance Use Type: does not use Exam Narrative Exam Narrative: GENERAL: 73 year old patient appears stated age. Well- nourished, well-developed patient, in mild distress, clearly not feeling well HEAD: Atraumatic. Normocephalic. EYES: Pupils equal round and reactive. Extraocular motions intact. No scleral icterus. No injection or drainage. ENT: Nose without bleeding, purulent drainage. Throat without erythema, tonsillar hypertrophy or exudate. Airway patent. NECK: Trachea midline. Non tender CARDIOVASCULAR: Regular rate and rhythm without murmurs, gallops, or rubs. RESPIRATORY: Clear to auscultation. Breath sounds equal bilaterally. No wheezes, rales, or rhonchi. GASTROINTESTINAL: Abdomen soft, non-tender, nondistended. EXTREMITIES: Erythema tenderness and warmth to the left great toe and dorsum of left foot. No obvious drainage from toe. BACK: Nontender without deformity or crepitance. No flank tenderness. NEURO: AOx3. SKIN: No rash or erythema of visible areas Initial Vital Signs Initial Vital Signs: Vital Signs Temperature 99.1 F 04/25/19 16:00 Pulse Rate 100 H 04/25/19 16:00 Respiratory Rate 22 04/25/19 16:00 Blood Pressure 132/84 04/25/19 16:00 Pulse Oximetry 98 04/25/19 16:00 Course Orders Ordered: ED Orders 04/25/19 16:30 Blood Culture Stat Complete Blood Count AUTO DIFF Stat 04/25/19 16:41 XR foot LT min 3V Stat 04/25/19 17:02 C-Reactive Protein Quant Stat Comprehensive Metabolic Panel Stat Erythrocyte Sedimentation Rate Stat Lactate (Lactic Acid) Stat Vancomycin HCl/Dextrose (Vancomycin) 1,500 mg in 300 mls @ 200 mls/hr IV NOW ONE Stop: 04/25/19 18:52 Last Admin: 04/25/19 17:33 Dose: 200 mls/hr Documented by: JAIRON Consultations Consultation #1: call to bautista Reyes, happy to be involved in consult if needed call to Dr. De Luna, happy to accept Vital Signs Vital signs: Vital Signs - 8 hr 04/25/19 16:00 04/25/19 16:36 04/25/19 17:05 Temperature 99.1 F Pulse Rate 100 H 95 H 93 H Respiratory Rate 22 18 16 Blood Pressure 132/84 Blood Pressure [Right Arm] 145/82 H 129/69 Pulse Oximetry 98 94 94 04/25/19 18:23 Temperature Pulse Rate 93 H Respiratory Rate 18 Blood Pressure Blood Pressure [Right Arm] 129/66 Pulse Oximetry 95 MDM - Fever Lab Data Result diagrams: 04/25/19 16:30 04/25/19 17:02 Labs: Lab Results 04/25/19 04/25/19 04/25/19 Range/Units 16:30 17:02 17:02 WBC 15.2 H (4.5-11.0) X10^3/uL RBC 3.96 L (4.5-5.9) X10^6/uL Hgb 12.1 L (13.5-17.5) g/dL Hct 35.9 L (41-53) % MCV 90.8 (80-100) fL MCH 30.6 (26-34) PG MCHC 33.7 (30-36) % RDW 15.0 H (11.6-14.8) % Plt Count 233 (150-400) X10^3/uL Neut % (Auto) 87.7 H (50-75) % Lymph % (Auto) 3.9 L (25-40) % Valley % (Auto) 8.0 (3-14) % Eos % (Auto) 0.1 L (2-4) % Baso % (Auto) 0.3 (0-2) % Neut # (Auto) 78696 H (6773-4047) /uL Lymph # (Auto) 600 L (0448-9346) /uL Valley # (Auto) 1200 H (0-900) /uL Eos # (Auto) 0 (0-450) /uL Baso # (Auto) 100 (0-100) /uL ESR (0-15) MM/HR Sodium 135 L (137-145) mmol/L Potassium 4.1 (3.4-5.1) mmol/L Chloride 97 L (98-107) mmol/L Carbon Dioxide 29 (22-32) mmol/L BUN 26 H (9-20) mg/dL Creatinine 0.90 (0.66-1.25) mg/dL Estimated GFR > 60.0 (>60) mL/min BUN/Creatinine Ratio 28.9 H (6-22) Glucose 199 H (80-110) mg/dL Lactate 2.2 H (0.7-2.1) mmol/L Calcium 8.6 (8.4-10.2) mg/dL Total Bilirubin 1.0 (0.2-1.3) mg/dL AST 27 (17-59) IU/L ALT 24 (<50) IU/L Alkaline Phosphatase 68 (38-126) U/L C-Reactive Protein (<1.0) mg/dL Total Protein 6.9 (6.3-8.2) g/dL Albumin 4.3 (3.5-5.0) g/dL Globulin 2.6 (1.7-4.1) g/dL Albumin/Globulin Ratio 1.7 (1.0-2.8) 04/25/19 04/25/19 Range/Units 17:02 17:02 WBC (4.5-11.0) X10^3/uL RBC (4.5-5.9) X10^6/uL Hgb (13.5-17.5) g/dL Hct (41-53) % MCV (80-100) fL MCH (26-34) PG MCHC (30-36) % RDW (11.6-14.8) % Plt Count (150-400) X10^3/uL Neut % (Auto) (50-75) % Lymph % (Auto) (25-40) % Valley % (Auto) (3-14) % Eos % (Auto) (2-4) % Baso % (Auto) (0-2) % Neut # (Auto) (4236-3347) /uL Lymph # (Auto) (5006-1733) /uL Valley # (Auto) (0-900) /uL Eos # (Auto) (0-450) /uL Baso # (Auto) (0-100) /uL ESR 59 H (0-15) MM/HR Sodium (137-145) mmol/L Potassium (3.4-5.1) mmol/L Chloride (98-107) mmol/L Carbon Dioxide (22-32) mmol/L BUN (9-20) mg/dL Creatinine (0.66-1.25) mg/dL Estimated GFR (>60) mL/min BUN/Creatinine Ratio (6-22) Glucose (80-110) mg/dL Lactate (0.7-2.1) mmol/L Calcium (8.4-10.2) mg/dL Total Bilirubin (0.2-1.3) mg/dL AST (17-59) IU/L ALT (<50) IU/L Alkaline Phosphatase (38-126) U/L C-Reactive Protein 16.0 H (<1.0) mg/dL Total Protein (6.3-8.2) g/dL Albumin (3.5-5.0) g/dL Globulin (1.7-4.1) g/dL Albumin/Globulin Ratio (1.0-2.8) Discharge Plan Departure Patient Disposition: Admitted As Inpatient Clinical Impression: Cellulitis of great toe of left foot Osteomyelitis Qualifiers: Osteomyelitis type: unspecified type Osteomyelitis location: foot Laterality: left Qualified Code(s): M86.9 - Osteomyelitis, unspecified
--- NOTE | 2019-04-25 16:41 | DI.RAD.S_ITS ---
PROCEDURE: XR FOOT LT MIN 3V INDICATIONS: recent procedure, worsening pain, redness TECHNIQUE: 3 views of the foot were acquired. COMPARISON: [facility], CR, XR FOOT LT MIN 3V, 12/10/2018, 14:14. FINDINGS: Bones: Postsurgical fixation at the first MTP joint is noted. Hardware is intact and there is good anatomic alignment. Severe degenerative change with areas of subchondral sclerosis and cyst formation are noted at the first DIP joint. Questionable areas of erosion are identified. Soft tissues: Soft tissue edema surrounding the first digit as well as areas of lucency within the soft tissue at the DIP joint are noted. Achilles tendon appears normal. IMPRESSION: Postsurgical changes with areas of questionable interval erosion at the first DIP joint with soft tissue edema. Overall appearance raises concern for infection and potential osteomyelitis. Dictated by: Gricelda France M.D. on 04/25/2019 at 17:03 Approved by: Gricelda France M.D. on 04/25/2019 at 17:04
[2019-04-25 16:43] LABS: Add Manual Diff / Slide Review NO; Basophils Absolute Auto 100 /uL (0-100); Basophils Percent Auto 0.3 % (0-2); Eosinophils Absolute Auto 0 /uL (0-450); Eosinophils Percent Auto 0.1 % (2-4); Hematocrit 35.9 % (41-53); Hemoglobin 12.1 g/dL (13.5-17.5); Lymphocytes Absolute Auto 600 /uL (1100-4500); Lymphocytes Percent Auto 3.9 % (25-40); Mean Corpuscular HGB Conc 33.7 % (30-36); Mean Corpuscular Hemoglobin 30.6 PG (26-34); Mean Corpuscular Volume 90.8 fL (80-100); Monocytes Absolute Auto 1200 /uL (0-900); Neutrophils Absolute Auto 13400 /uL (1500-7000); Neutrophils Percent Auto 87.7 % (50-75); Platelet Count 233 X10^3/uL (150-400); Red Blood Cell Count 3.96 X10^6/uL (4.5-5.9); White Blood Cell Count 15.2 X10^3/uL (4.5-11.0)
[2019-04-25 17:30] LABS: Alanine Aminotransferase 24 IU/L (<50); Albumin 4.3 g/dL (3.5-5.0); Albumin Globulin Ratio 1.7 (1.0-2.8); Alkaline Phosphatase 68 U/L (38-126); Aspartate Aminotransferase 27 IU/L (17-59); BUN Creatinine Ratio 28.9 (6-22); Blood Urea Nitrogen 26 mg/dL (9-20); Calcium 8.6 mg/dL (8.4-10.2); Carbon Dioxide 29 mmol/L (22-32); Chloride 97 mmol/L (98-107); Estimated Glomerular Filt Rate > 60.0 mL/min (>60); Globulin 2.6 g/dL (1.7-4.1); Glucose 199 mg/dL (80-110); HEMOLYSIS < 15 (0-50); Lactate (Lactic Acid) 2.2 mmol/L (0.7-2.1); Potassium 4.1 mmol/L (3.4-5.1); Sodium 135 mmol/L (137-145); Total Protein 6.9 g/dL (6.3-8.2)
[2019-04-25] MEDS: VANCOMYCIN 1,500 MG/300 ML FROZ.PIGGY 200 MG IV (17:33)
[2019-04-25 17:37] LABS: Erythrocyte Sedimentation Rate 59 MM/HR (0-15)
[2019-04-25 19:11] LABS: Reflexed Lactate in 2 Hours Y
--- NOTE | 2019-04-25 19:57 | P.HP_ITS ---
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 On 03/28/2019 patient underwent a left hallux exostectomy for a bone spur. Patient has been following with Dr. Victoria Bettencourt at [facility]. After surgical procedure patient has developed progressive redness, edema, and purulence from surgical wound site. In the past 24 hours he has been having rigors and generalized malaise. Patient was seen at the [facility] earlier in the day, now with concern for worsening edema and erythema. Erythema now with spread to mid foot. He continues to have purulent drainage. Patient is known to have diabetic polyneuropathy w/loss of sensation in the left foot being more than the right at baseline. On 04/24, wound culture grew Staph aureus for which he was prescribed ciprofloxacin 500 mg QID, taken 5 total doses. Today, bone biopsy was obtained. Patient does have a remote history of cellulitis in right lower extremity. No prior history of MRSA. Initial lab work from the ED was remarkable for WBC 15.2 lactate 2.2 ESR 59 CRP 16. XR of the left foot raised concern for osteomyelitis. ED Presentation & Work-Up VS, 04/25 1600. T 99.1 BP 132/84 HR 100 RR 22 SpO2 98% Labs, 04/25/19 1702 WBC 15.2 ESR 59 CRP 16 Lactate 2.2 HGB 12.1 PLT 233 Na 135 K 4.1 Cl 97 Ca 8.6 ALB 4.3 Glu 199 CO2 29 BUN 26 Cr 0.9 BUN:Cr 28.9 T.Bili 1.0 AST 27 ALT 24 Alk Phos 68 XR LEFT FOOT. Postsurgical fixation at the first MTP joint. Hardware is intact and there is good anatomic alignment. Severe degenerative change with areas of subchondral sclerosis and cyst formation are noted at the first DIP joint. Soft tissue edema surrounding the first digit as well as areas of lucency within the soft tissue at the DIP joint. Achilles tendon appears normal. Post-surgical changes with areas of questionable interval erosion at the first DIP joint with soft tissue edema. Overall appearance raises concern for infection and potential osteomyelitis. In ED was treated w/ vancomycin 1.5 mg (726). Patient is being admitted for treatment of cellulitis and osteomyelitis. Patient History Medical History Cataracts, bilateral (Chronic ~2017) Cellulitis (Inactive) Depression (Acute) Diabetes (Chronic ~1988) Hepatitis (Resolved ~1966) HLD (hyperlipidemia) (Acute) Hypercholesteremia (Chronic) Hypertension (Chronic) Leishmaniasis (Chronic ~2015) Microalbuminuria (Acute) Peripheral neuropathy (Chronic) Psoriasis (Chronic ~1968) Serous otitis media (Inactive) UTI (urinary tract infection) (Acute 02/13/19) Vertigo (Chronic ~2017) Surgical History Anesthesia (Resolved) History of angioplasty (Resolved ~1985) History of laminectomy (Resolved) Hx of appendectomy (Acute) Hx of cholecystectomy (Acute) S/P CABG (coronary artery bypass graft) (Resolved ~1985) Family & Social History Family History Father Cancer Mother Heart disease Grandfather Heart disease Grandmother Heart disease Grandfather Heart disease Grandmother Heart disease Social History: household members spouse Tobacco & Substance use: Smoking Status Former smoker, 2 ppd for 20 yrs, quit 1985 alcohol intake current 2 drinks per week alcohol intake frequency a few times a month Substance Use Type does not use Meds Home Medications and Allergies Home Medications Medication Instructions Recorded Confirmed Type aspirin 81 mg PO QDAY #0 01/09/17 04/25/19 History insulin glargine 100 unit/mL 60 unit SUBCUT BID #0 ml 12/18/18 04/25/19 History subcutaneous solution candesartan 4 mg tablet 2 mg PO DAILY #90 tab 01/01/19 04/25/19 Rx citalopram 20 mg tablet 20 mg PO DAILY #90 tab 01/01/19 04/25/19 Rx metformin 1,000 mg tablet 1,000 mg PO BID #180 tab 01/01/19 04/25/19 Rx propranolol 40 mg tablet 40 mg PO BID #180 tab 01/01/19 04/25/19 Rx tamsulosin 0.4 mg capsule 0.4 mg PO QDAY #90 cap 01/01/19 04/25/19 Rx tolterodine 2 mg capsule,extended 2 mg PO DAILY #90 cap 01/01/19 04/25/19 Rx release 24 hr glipizide 5 mg tablet 5 mg PO BID #180 tab 02/04/19 04/25/19 Rx atorvastatin [Lipitor] 40 mg PO QPM 04/25/19 04/25/19 History cephalexin 500 mg PO TID 04/25/19 04/25/19 History melatonin 10 mg PO BEDTIME 04/25/19 04/25/19 History Allergies Allergy/AdvReac Type Severity Reaction Status Date / Time Iodinated Contrast Media Allergy Severe ANAPHALAXIS Verified 03/28/19 09:50 [IODINATED CONTRAST- ORAL AND IV DYE] levofloxacin [LEVOFLOXACIN] Allergy Unknown Hives Verified 03/28/19 09:50 lisinopril [LISINOPRIL] Allergy Unknown COUGH Verified 03/28/19 09:50 Review of Systems Review of Systems ROS Unobtainable: All systems reviewed & are unremarkable except as noted in HPI and below Respiratory Comments: wheezing at times, progressive worsening exertional dyspnea Exam Vital Signs (past 8 hours): - 04/25/19 16:00 04/25/19 16:36 04/25/19 17:05 Temperature 99.1 F Pulse Rate 100 H 95 H 93 H Respiratory Rate 22 18 16 Blood Pressure 132/84 Blood Pressure [Right Arm] 145/82 H 129/69 Pulse Oximetry 98 94 94 04/25/19 18:23 04/25/19 19:12 04/25/19 19:30 Temperature 98.5 F Pulse Rate 93 H 94 H 89 Respiratory Rate 18 18 20 Blood Pressure 127/69 Blood Pressure [Right Arm] 129/66 106/50 L Pulse Oximetry 95 95 95 Oxygen Delivery Method Room Air Narrative Exam Narrative: Constitutional: No overt distress, appears stated age, obese habitus BMI 36.8 Neurologic: AOx3, no focal neurological deficits, BUE tremor present at rest Head: NC, AT Eyes: PERRL, EOMI, Ears: external ears normal, no otorrhea Nose: external nose normal, no rhinorrhea or epistaxis Throat: MMM, oropharynx w/o exudate Neck: no masses, lymphadenopathy, or JVD Chest / Respiratory: Equal chest rise. Labored respiratory effort at rest - tachypneic, noted to be mildly dyspneic on exertion Breath sounds diminished, no wheezing. No crackles. Heart / CV: S1S2, no murmur Abdomen / GI: round, moderate to large distention, moderately firm last BM 04/24. no tenderness, + BS : no suprapubic tenderness, no CVA Peripheral / Vascular: RLE no edema, DP palpable, sensation diminished LLE edema 1+ Below foot / ankle 2+ pitting erythema present at the left great toe w/ spread to mid-foot ulcer 2nd phalanx DP and PT pulse difficulty to palpate, doppleable absent sensation, no cyanosis, No tenderness at the calf bilaterally Musc: full ROM of upper and lower extremities, adequate muscle tone and bulk Skin: abdomen + bruises at different stages of healing draining wound left great toe w/ surrounding edema, erythema, and calor w/ spread to mid foot ulcer stage 2 2nd phalanx Objective Labs Result Diagrams: 04/26/19 05:07 04/26/19 05:07 Labs: Laboratory Results - last 24 hr 04/25/19 04/25/19 04/25/19 16:30 17:02 17:02 WBC 15.2 H RBC 3.96 L Hgb 12.1 L Hct 35.9 L MCV 90.8 MCH 30.6 MCHC 33.7 RDW 15.0 H Plt Count 233 Neut % (Auto) 87.7 H Lymph % (Auto) 3.9 L [place] % (Auto) 8.0 Eos % (Auto) 0.1 L Baso % (Auto) 0.3 Neut # (Auto) 47697 H Lymph # (Auto) 600 L [place] # (Auto) 1200 H Eos # (Auto) 0 Baso # (Auto) 100 ESR Sodium 135 L Potassium 4.1 Chloride 97 L Carbon Dioxide 29 BUN 26 H Creatinine 0.90 Estimated GFR > 60.0 BUN/Creatinine Ratio 28.9 H Glucose 199 H Lactate 2.2 H Calcium 8.6 Total Bilirubin 1.0 AST 27 ALT 24 Alkaline Phosphatase 68 C-Reactive Protein Total Protein 6.9 Albumin 4.3 Globulin 2.6 Albumin/Globulin Ratio 1.7 04/25/19 04/25/19 17:02 17:02 WBC RBC Hgb Hct MCV MCH MCHC RDW Plt Count Neut % (Auto) Lymph % (Auto) [place] % (Auto) Eos % (Auto) Baso % (Auto) Neut # (Auto) Lymph # (Auto) [place] # (Auto) Eos # (Auto) Baso # (Auto) ESR 59 H Sodium Potassium Chloride Carbon Dioxide BUN Creatinine Estimated GFR BUN/Creatinine Ratio Glucose Lactate Calcium Total Bilirubin AST ALT Alkaline Phosphatase C-Reactive Protein 16.0 H Total Protein Albumin Globulin Albumin/Globulin Ratio Assessment & Plan Assessment & Plan narrative: Patient is admitted under observation status for left hallux cellulitis / osteomyelitis Cellulitis of left great toe, acute, present on admission, active - concern for osteomyelitis - wbc 15.2 lactate 2.2 ESR 59 CRP 16, no evidence of sepsis at this time - recent wound cx, collected in the outpatient clinic positive for Staph aureus (per ED communication) - blood cx, collected in ED, results pending - additional labs: UA (now), CBC and BMP in am - started on vancomycin in ED (1st dose, 04/25 1733), continue vancomycin, pharmacy to dose - wound care daily clean foot w/ hibiclens, toe wound irrigate w/ saline, cover w/ Aquacell or Aquacell AG dressing, wrap w/ gauze Osteomyelitis of left great toe, acute / suspected, present on admission, active - bone biopsy per patient, will need to verify - consider mri foot foot to confirm or eval extent, if no pending bone biopsy - currently being treated w/ vancomycin Ddiabetic ulcer, acute, present on admission, active - location left 2nd phallanx, limited to breakdown of skin Dyspnea w/ exertion, acute on chronic, present on admission - ongoing, worsening - s/p left hallux exostectomy on 03/28/2019 - check BNP result reviewed: 264, mildly elevated - consider LLE U/S to r/o DVT - consider echo in the outpatient setting DM 2T, insulin dependent, present on admission, active - Suboptimally controlled, A1C 7.2% (12/2018) - Associated complications of polyneuropathy - FIELD SALES REPRESENTATIVE regimen: metformin 1000 mg BID, glipizide 5 mg BID, lantus 60 units BID, not on short acting insulin hold metformin and glipizide during inpatient stay resume lantus 60 units BID add short acting insulin, per sliding protocol glu poc ac/hs ok to resume diet: heart healthy, carb consistent Normocytic anemia, present on admission, active - Hgb 12.1 g/dL, trend w/ routine lab, asymptomatic - Hold off on iron studies, given active infection, recommend outpatient follow up Essential HTN, chronic condition, present on admission, stable / controlled - Continue trending BP - Resume FI[employer] SALES REPRESENTATIVE regimen of candesartan and propranolol w/ hold parameters, hold for SBP < 110 mmHg CAD, chronic condition, present on admission, active - Exertional dyspnea, progressively worsening. No active CP, palpitations, di zziness/lightheadedness - Does not follow w/ cardiology outpatient - Remote h/o NM 1985 s/p balloon angioplasty, 3v-CABG years later - Positive RF: HTN, DM, HLD, obesity, prior tobacco use, FHx - Continue w/ risk factor optimization, resume ASA 81 mg QD and atorvastatin 40 mg QD Code status discussed. Full Code. Patient states that he has a formal health directive. Notes partner Juan Carlos as proxy decision maker. Home medications reviewed and reconciled accordingly. VTE prophylaxis w/ lovenox only, SCDs contraindicated d/t LLE cellulitis
[2019-04-25 20:00] LABS: Lactate 2HR (Lactic Acid Rflx) 1.3 mmol/L (0.7-2.1)
--- NOTE | 2019-04-25 20:52 | PC.ADMIT ---
Pt to acute care from ER. A/O. Denies pain. Left great toe erythemic/swollen, serosang drainage on gauze pad between big/second toe. Surrounding tissue/toes also erythemic. Psoriasis patchy/dry skin areas on extremities. Pt also has stg1/pressure on coccyx/into gluteal cleft. Skin is red and non blanchable. Pt educated on position changes and independently turned to left side. Neuropathy and no feeling in bilateral feet. Oriented to room/call light. Assisted pt to call spouse, Juan Carlos, to get meds/doses verified. [email or web address] Admission Note: The patient,Alex Dunn,73 y/o, was given written information regarding hospital policies, unit procedures and contact persons. Patient's smoking status: Former smoker. Vital Signs - 8 hr 04/25/19 16:00 04/25/19 16:36 04/25/19 17:05 Temperature 99.1 F Pulse Rate 100 H 95 H 93 H Respiratory Rate 22 18 16 Blood Pressure 132/84 Blood Pressure [Right Arm] 145/82 H 129/69 Pulse Oximetry 98 94 94 04/25/19 18:23 04/25/19 19:12 04/25/19 19:30 Temperature 98.5 F Pulse Rate 93 H 94 H 89 Respiratory Rate 18 18 20 Blood Pressure 127/69 Blood Pressure [Right Arm] 129/66 106/50 L Pulse Oximetry 95 95 95
[2019-04-25 22:05] LABS: B Type Natriuretic Peptide 264 (<100)
[2019-04-25] MEDS: ATORVASTATIN 20 MG TABLET 40 MG PO (22:12)
[2019-04-25] MEDS: INSULIN GLARGINE 100 UNIT/ML 3ML PEN 60 UNIT SUBCUT (22:46)
[2019-04-25] MEDS: PROPRANOLOL 40 MG TABLET PO (22:47)
[2019-04-25 23:19] LABS: Appearance Urine UA CLEAR; Bilirubin Urine UA NEGATIVE (NEGATIVE); Color Urine UA YELLOW; Glucose Urine UA TRACE g/dL (Negative); Ketones Urine UA NEGATIVE (NEGATIVE); Leukocyte Esterase Urine UA NEGATIVE (NEGATIVE); Nitrite Urine UA NEGATIVE (Negative); Occult Blood Urine UA 2+ (Negative); Protein Urine UA TRACE (Negative); Urobilinogen Urine UA 0.2 E.U./dL (0.2); pH Urine UA 5.5 (4.5-8.0)
[2019-04-25 23:26] LABS: Bacteria Urine Occasional (0-1); Mucus Urine 1+ (Negative); RBC Urine 0-1/HPF (0-5/HPF); Squamous Epithelial Cell Urine 0-1 /HPF (0-5/HPF); WBC Urine 0-1/HPF (0-5/HPF)
[2019-04-25 23:27] LABS: Culture Indicated Urine Cult Not Indicated
[2019-04-26] MEDS: MELATONIN 3 MG TABLET 9 MG PO ×2 (02:20→20:39)
[2019-04-26 03:24] VITALS: BP 126/64; PULSE 79; RESP 16; TEMP 36.7; O2SAT 94
[2019-04-26] MEDS: VANCOMYCIN 1,000 MG/200 ML PIGGYBACK 150 MG IV (04:33)
[2019-04-26] MEDS: ONDANSETRON 4 MG ODT PO (04:34)
[2019-04-26] MEDS: SODIUM CHLORIDE 0.9% FLUSH 10 ML IV ×3 (04:35→21:09)
[2019-04-26] MEDS: SODIUM CHLORIDE 0.9% 250 ML 21 ML IV (04:35)
[2019-04-26 05:36] LABS: Add Manual Diff / Slide Review NO; Basophils Absolute Auto 0 /uL (0-100); Basophils Percent Auto 0.4 % (0-2); Eosinophils Absolute Auto 0 /uL (0-450); Eosinophils Percent Auto 0.1 % (2-4); Hematocrit 33.3 % (41-53); Hemoglobin 11.5 g/dL (13.5-17.5); Lymphocytes Absolute Auto 1100 /uL (1100-4500); Lymphocytes Percent Auto 10.8 % (25-40); Mean Corpuscular HGB Conc 34.5 % (30-36); Mean Corpuscular Hemoglobin 31.3 PG (26-34); Mean Corpuscular Volume 90.6 fL (80-100); Monocytes Absolute Auto 1300 /uL (0-900); Monocytes Percent Auto 12.6 % (3-14); Neutrophils Absolute Auto 7800 /uL (1500-7000); Neutrophils Percent Auto 76.1 % (50-75); Platelet Count 186 X10^3/uL (150-400); Red Blood Cell Count 3.68 X10^6/uL (4.5-5.9); Red Cell Distribution Width 14.6 % (11.6-14.8); White Blood Cell Count 10.2 X10^3/uL (4.5-11.0)
--- NOTE | 2019-04-26 05:41 | PC.NURSE ---
Pt admitted with cellulitis of left foot, concern for osteomyelitis. Left foot cellulitis borders marked, monitor for extending beyond border. Left great toe with open wound, dressed with gauze in ER last awilda. Left toe wound positive for staph, no Hx of MRSA. 2+ edema to left foot 1+ to right foot. Pt reports absolutely no feeling in either foot. Monitoring pedal pulse q4hr with doppler as pulse not palpable earlier, now able to palpate pulse. Clarify with provider if doppler still needed. Pulse strong and regular. Pt with chronic and current vertigo, worse in past two days. Fall risk. Reinforced fall precautions. Using bedside commode and calls appropriately for assist with safe transfer. Pt with renal failure, voiding small amts each time, ~100-200cc. Dribbling post void. Order for q6hr I&O. Pt on Vanco IV, reports feeling blah with previous antibiotics. Premedicated with PO zofran. Pt tolerating IV infusion thus far. SOB on exertion, CPOX per order, sats 95%. Occasional moist cough, lung sounds clear.
[2019-04-26 05:42] LABS: BUN Creatinine Ratio 23.3 (6-22); Blood Urea Nitrogen 21 mg/dL (9-20); Calcium 8.4 mg/dL (8.4-10.2); Carbon Dioxide 28 mmol/L (22-32); Chloride 99 mmol/L (98-107); Estimated Glomerular Filt Rate > 60.0 mL/min (>60); Glucose 183 mg/dL (80-110); HEMOLYSIS < 15 (0-50); Potassium 3.8 mmol/L (3.4-5.1); Sodium 135 mmol/L (137-145)
[2019-04-26 07:30] VITALS: BP 128/70; PULSE 77; RESP 14; TEMP 36.6; O2SAT 95
[2019-04-26] MEDS: VANCOMYCIN 750 MG/150 ML FROZ.PIGGY 150 MG IV (07:56)
[2019-04-26] MEDS: CITALOPRAM 20 MG TABLET PO (07:57)
[2019-04-26] MEDS: ASPIRIN EC 81 MG TABLET PO (07:57)
[2019-04-26] MEDS: ENOXAPARIN 40 MG/0.4 ML SYRINGE SUBCUT (07:57)
[2019-04-26] MEDS: TAMSULOSIN 0.4 MG CAPSULE PO (07:57)
[2019-04-26] MEDS: INSULIN GLARGINE 100 UNIT/ML 3ML PEN 60 UNIT SUBCUT ×2 (07:58→20:38)
[2019-04-26] MEDS: PROPRANOLOL 40 MG TABLET PO ×2 (08:28→20:43)
[2019-04-26 09:24] VITALS: O2SAT 94
[2019-04-26 11:15] VITALS: BP 108/61; PULSE 73; RESP 18; TEMP 36.6; O2SAT 94
--- NOTE | 2019-04-26 11:55 | CM.DANOTE ---
DCP assessment: EMR reviewed: patient is a 73 yr old male who was admitted for Lt foot infection, cellulites, with concerns of osteomyelitis. patients PCP is Dr. Boo. CM/RN met with patient at the bedside and explained CM/RN role. Patient was alert and oriented x3 at time of CM meeting. Patient currently lives with Juan Carlos in [facility]. Patient is I at baseline with all ADL's. patient does use a cane at home and would like to return home if able but is open to SNF if needed. Patient given SNF list and chose to look at both [facility] and [facility] for potential SNF options. CM contacted Maddie at [facility] who is reviewing patient for possible admission. CM contacted Shey at [facility] and faxed clinicals for them to review for possible admission. CM department to F/U as patient nears potential D/C. During Am rounds Dr. De Luna stated patient would need a few days at least for antibiotics or possible surgery depending on severity of infection and Cellulites. CM department to follow for possible D/c planning needs. Insurance: 1st: Medicare 2nd: [facility] Plan: D/C SNF vs home depending on needs of the patient at D/C. [facility] reviewing and [facility] reviewing for possible placement if needed at d/c Catalina Moreno RN Discharge Planning/Care Management Discharge Assessment Start: 04/26/19 11:52 Freq: Status: Active Protocol: Document 04/26/19 11:52 HS (Rec: 04/26/19 11:55 HS [id number]) Discharge Planning Assessment Assigned Nursing Services Manager Catalina Moreno RN DPOA/Assigned Designee Name Juan Carlos Moreno (partner) Contact Information [phone] Advance Directives? Yes: POLST History Provided By Patient Has Patient been admitted in last 30 No days? Prior Living Arrangements House Household Members spouse Type of transporation used prior to Relies on Others admit Comment drives - patient has drivers license but always drives Independent with ADL's Yes Is patient alert and oriented? Yes Caregiver for Another No DME Already Rented / Owned FWW / Walker,Cane Patient/Family Preference Halfway Facility Discharge Plan Halfway Facility Referrals Initiated Halfway Additional Comment CM/RN called [facility] to review for possible placement if needed at D/C If patient plan is SNF: Has PASSR been Yes completed? Medicare Choice List Provided Yes SNF/HH Preference [facility] was prefered choice Contact Name/Phone Maddie at [facility] [phone] Has Agency SNF been contacted Yes Whiteboard Updated in Patient Room with Yes name and ext. # of Nursing Services Manager Review Status In Process Next Review Type Continued Stay Review
--- NOTE | 2019-04-26 12:48 | PM.PN.1 ---
Subjective Subjective Date Patient Seen: 04/26/19 Interval history: The patient is a 73-year-old male with a history of type 2 diabetes who was admitted to the hospital last night for progressive cellulitis of the left hallux. Patient was followed by the wound care clinic. He underwent excision of a bone spur by Podiatry. He was sent to Wound Care for ongoing management. The patient had been placed on antibiotics. However he had failure to heal of his surgical wound. He was seen by Dr. Bettencourt on the and started on cephalexin. X-rays were done in the clinic that showed no gas or new cystic changes. Patient presented to the wound Care Center and was found to have progressive cellulitis and transferred to the emergency department for evaluation and treatment. Patient had a bone culture obtained by Dr. Bettencourt. He also had wound cultures obtained which are growing Staph coccus at this point. He is on IV vancomycin and admitted to the hospital Exam Vital Signs (past 8 hours): - 04/26/19 09:24 Pulse Oximetry 94 Oxygen Delivery Method Room Air Narrative Exam Narrative: Pleasant elderly male sitting in bed in no obvious distress Lungs: Clear to auscultation Cardiac exam: Regular rate and rhythm normal S1-S2 Abdomen: Obese soft and nontender Extremities: Left foot reveals a large swollen left forefoot, erythema spreading up the forefoot, the left great toe is swollen with an incision on the lateral border. There is some exudate noted. Patient has no sensation of his feet. He denies any pain in the area. Objective Labs Result Diagrams: 04/26/19 05:07 04/26/19 05:07 Labs: Laboratory Results - last 24 hr 04/25/19 04/25/19 04/25/19 16:30 17:02 17:02 WBC 15.2 H RBC 3.96 L Hgb 12.1 L Hct 35.9 L MCV 90.8 MCH 30.6 MCHC 33.7 RDW 15.0 H Plt Count 233 Neut % (Auto) 87.7 H Lymph % (Auto) 3.9 L Dolores % (Auto) 8.0 Eos % (Auto) 0.1 L Baso % (Auto) 0.3 Neut # (Auto) 84198 H Lymph # (Auto) 600 L Dolores # (Auto) 1200 H Eos # (Auto) 0 Baso # (Auto) 100 ESR Sodium 135 L Potassium 4.1 Chloride 97 L Carbon Dioxide 29 BUN 26 H Creatinine 0.90 Estimated GFR > 60.0 BUN/Creatinine Ratio 28.9 H Glucose 199 H Lactate 2.2 H Calcium 8.6 Total Bilirubin 1.0 AST 27 ALT 24 Alkaline Phosphatase 68 C-Reactive Protein B-Natriuretic Peptide Total Protein 6.9 Albumin 4.3 Globulin 2.6 Albumin/Globulin Ratio 1.7 Urine Color Urine Appearance Urine pH Ur Specific [place] Urine Protein Urine Glucose (UA) Urine Ketones Urine Occult Blood Urine Nitrate Urine Bilirubin Urine Urobilinogen Ur Leukocyte Esterase Urine RBC Urine WBC Ur Squamous Epith Cells Urine Bacteria Urine Mucus Ur Culture Indicated? 04/25/19 04/25/19 04/25/19 17:02 17:02 17:02 WBC RBC Hgb Hct MCV MCH MCHC RDW Plt Count Neut % (Auto) Lymph % (Auto) Dolores % (Auto) Eos % (Auto) Baso % (Auto) Neut # (Auto) Lymph # (Auto) Dolores # (Auto) Eos # (Auto) Baso # (Auto) ESR 59 H Sodium Potassium Chloride Carbon Dioxide BUN Creatinine Estimated GFR BUN/Creatinine Ratio Glucose Lactate Calcium Total Bilirubin AST ALT Alkaline Phosphatase C-Reactive Protein 16.0 H B-Natriuretic Peptide 264 H Total Protein Albumin Globulin Albumin/Globulin Ratio Urine Color Urine Appearance Urine pH Ur Specific [place] Urine Protein Urine Glucose (UA) Urine Ketones Urine Occult Blood Urine Nitrate Urine Bilirubin Urine Urobilinogen Ur Leukocyte Esterase Urine RBC Urine WBC Ur Squamous Epith Cells Urine Bacteria Urine Mucus Ur Culture Indicated? 04/25/19 04/25/19 04/26/19 19:25 23:00 05:07 WBC 10.2 RBC 3.68 L Hgb 11.5 L Hct 33.3 L MCV 90.6 MCH 31.3 MCHC 34.5 RDW 14.6 Plt Count 186 Neut % (Auto) 76.1 H Lymph % (Auto) 10.8 L Dolores % (Auto) 12.6 Eos % (Auto) 0.1 L Baso % (Auto) 0.4 Neut # (Auto) 7800 H Lymph # (Auto) 1100 Dolores # (Auto) 1300 H Eos # (Auto) 0 Baso # (Auto) 0 ESR Sodium Potassium Chloride Carbon Dioxide BUN Creatinine Estimated GFR BUN/Creatinine Ratio Glucose Lactate 1.3 Calcium Total Bilirubin AST ALT Alkaline Phosphatase C-Reactive Protein B-Natriuretic Peptide Total Protein Albumin Globulin Albumin/Globulin Ratio Urine Color Yellow Urine Appearance Clear Urine pH 5.5 Ur Specific [place] 1.010 Urine Protein Trace H Urine Glucose (UA) Trace H Urine Ketones Negative Urine Occult Blood 2+ H Urine Nitrate Negative Urine Bilirubin Negative Urine Urobilinogen 0.2 Ur Leukocyte Esterase Negative Urine RBC 0-1/hpf Urine WBC 0-1/hpf Ur Squamous Epith Cells 0-1 /hpf Urine Bacteria Occasional (0-1) D Urine Mucus 1+ H Ur Culture Indicated? Cult not indicated 04/26/19 05:07 WBC RBC Hgb Hct MCV MCH MCHC RDW Plt Count Neut % (Auto) Lymph % (Auto) Dolores % (Auto) Eos % (Auto) Baso % (Auto) Neut # (Auto) Lymph # (Auto) Dolores # (Auto) Eos # (Auto) Baso # (Auto) ESR Sodium 135 L Potassium 3.8 Chloride 99 Carbon Dioxide 28 BUN 21 H Creatinine 0.90 Estimated GFR > 60.0 BUN/Creatinine Ratio 23.3 H Glucose 183 H Lactate Calcium 8.4 Total Bilirubin AST ALT Alkaline Phosphatase C-Reactive Protein B-Natriuretic Peptide Total Protein Albumin Globulin Albumin/Globulin Ratio Urine Color Urine Appearance Urine pH Ur Specific [place] Urine Protein Urine Glucose (UA) Urine Ketones Urine Occult Blood Urine Nitrate Urine Bilirubin Urine Urobilinogen Ur Leukocyte Esterase Urine RBC Urine WBC Ur Squamous Epith Cells Urine Bacteria Urine Mucus Ur Culture Indicated? Assessment & Plan Assessment & Plan narrative: Impression 1. 73-year-old male admitted to the hospital with cellulitis, and the patient had recent spur excision with failure to heal of the surgical wound. Despite antibiotic he has had progression of his cellulitis. His wound culture is growing Staphylococcus at this point. Bone culture to rule out osteomyelitis is still pending. Patient will be continued on IV vancomycin. Will continue wound dressings as outlined by the wound care clinic. 2. Diabetic foot ulcer, continue treatment and therapy as above. Will continue wound care plus IV antibiotics. 3. Type 2 diabetes, patient with some evidence of hyperglycemia. Oral hypoglycemics have been held. Patient will be treated with basal bolus insulin here in the hospital. 4. Probable osteomyelitis, await bone biopsy results. Continue antibiotics for now. Determining osteomyelitis will help with duration of antibiotic therapy. In the interim will continue the IV vancomycin. 5. Coronary artery disease, chronic Continue as you home medication 6. Hyperlipidemia, chronic, continue atorvastatin 7. Dyspnea on exertion, chronic no evidence of heart failure at this time. Agree with outpatient echocardiogram When appropriate
--- NOTE | 2019-04-26 15:25 | CM.DPC ---
DCP continued: EMR reviewed: November with [facility] contacted CM/RN they aren't sure if they can accept this patient because it is to early to tell what the patients D/C needs might be, they will continue to watch patient while they are here at [facility] PASRR done if needed for patient to go to SNF. CM department will continue to follow to determine what the right placement option will be for patient might be as we get closer to possible D/C. [facility], [facility], Home with HH or with IV therapy. Depends on what patients treatment will look like and pending patient care needs. Catalina Moreno RN.
[2019-04-26 16:16] VITALS: BP 129/75; PULSE 86; RESP 18; TEMP 37; O2SAT 96
[2019-04-26] MEDS: INSULIN ASPART 100 UNIT/ML INSULN PEN SUBCUT ×2 (16:21→20:37)
[2019-04-26] MEDS: ATORVASTATIN 20 MG TABLET 40 MG PO (16:47)
[2019-04-26] MEDS: VANCOMYCIN 1,500 MG/300 ML FROZ.PIGGY 200 MG IV (18:08)
[2019-04-26 19:54] VITALS: BP 131/69; PULSE 96; RESP 20; TEMP 36.8; O2SAT 94
[2019-04-27] VITALS (9 sets, daily range): BP systolic 100–141; BP diastolic 46–71; PULSE 66–91; RESP 14–23; TEMP 36.4–37.1; O2SAT 93–96
--- NOTE | 2019-04-27 03:10 | PC.NURSE ---
Pt VSS, denies pain. 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 Pt has small gaze bandage on Lft. big toe, Lft foot edematous 2+, CMS intact. Pt is incontinent w/ a brief. BS 124
[2019-04-27] MEDS: VANCOMYCIN 1,500 MG/300 ML FROZ.PIGGY 200 MG IV ×2 (06:33→19:30)
[2019-04-27] MEDS: PROPRANOLOL 40 MG TABLET PO ×2 (08:24→20:00)
[2019-04-27] MEDS: ENOXAPARIN 40 MG/0.4 ML SYRINGE SUBCUT (08:24)
[2019-04-27] MEDS: TAMSULOSIN 0.4 MG CAPSULE PO (08:24)
[2019-04-27] MEDS: CITALOPRAM 20 MG TABLET PO (08:25)
[2019-04-27] MEDS: INSULIN GLARGINE 100 UNIT/ML 3ML PEN 60 UNIT SUBCUT ×2 (08:25→21:13)
[2019-04-27] MEDS: ASPIRIN EC 81 MG TABLET PO (08:25)
[2019-04-27] MEDS: INSULIN ASPART 100 UNIT/ML INSULN PEN SUBCUT ×2 (12:26→16:31)
[2019-04-27] MEDS: SODIUM CHLORIDE 0.9% FLUSH 10 ML IV ×2 (12:27→21:13)
[2019-04-27] MEDS: ATORVASTATIN 20 MG TABLET 40 MG PO (16:35)
[2019-04-27 19:04] LABS: Vancomycin Trough 11.4 ug/mL (10-20)
--- NOTE | 2019-04-27 19:23 | PM.PN.1 ---
Subjective Subjective Date Patient Seen: 04/27/19 Interval history: Patient is a 73-year-old male mid to the hospital for cellulitis following a surgical exploration, shaving of a bone spur from his left great toe. Patient has no complaints. The swelling and redness are improving. Exam Vital Signs (past 8 hours): - 04/27/19 16:31 04/27/19 19:18 Temperature 97.9 F 97.6 F Pulse Rate 70 79 Respiratory Rate 18 17 Blood Pressure 115/48 L 141/70 H Pulse Oximetry 95 95 Oxygen Delivery Method Room Air Oxygen Flow Rate 0 Narrative Exam Narrative: Pleasant elderly male in no acute distress Lungs: Clear to auscultation Cardiac exam: Regular rate and rhythm normal S1-S2 Abdomen soft nontender nondistended Extremities: Left foot shows decreased erythema over the great toe and forefoot, the lateral portion of the great toe has an open wound that has some serous drainage. The toe is swollen and unchanged from yesterday. Objective Labs Result Diagrams: 04/26/19 05:07 04/26/19 05:07 Labs: Laboratory Results - last 24 hr 04/27/19 18:30 Vancomycin Trough 11.4 Assessment & Plan Assessment & Plan narrative: Assessment & Plan narrative: Impression 1. 73-year-old male admitted to the hospital with cellulitis, and the patient had recent spur excision with failure to heal of the surgical wound. Despite antibiotic he has had progression of his cellulitis. His wound culture is growing Staphylococcus at this point. Bone culture to rule out osteomyelitis is still pending. Patient will be continued on IV vancomycin. Will continue wound dressings as outlined by the wound care clinic. Wound culture showing Staph aureus which is pansensitive. Will await bone culture results to determine whether he has osteo. If the patient does not have osteo he can be switched to an alternative treatment such as Ancef and then switched to oral antibiotics at discharge. 2. Diabetic foot ulcer, continue treatment and therapy as above. Will continue wound care plus IV antibiotics. 3. Type 2 diabetes, patient with some evidence of hyperglycemia. Oral hypoglycemics have been held. Patient will be treated with basal bolus insulin here in the hospital. Blood sugars remain elevated, will change his sliding scale correctional dose of insulin to a high-dose protocol. 4. Probable osteomyelitis, await bone biopsy results. Continue antibiotics for now. Determining osteomyelitis will help with duration of antibiotic therapy. In the interim will continue the IV vancomycin. 5. Coronary artery disease, chronic Continue as you home medication 6. Hyperlipidemia, chronic, continue atorvastatin 7. Dyspnea on exertion, chronic no evidence of heart failure at this time. Agree with outpatient echocardiogram When appropriate 8. Hypertension continue propanolol.
[2019-04-27] MEDS: VANCOMYCIN TROUGH 1 REQUEST MISC (19:41)
[2019-04-27] MEDS: MELATONIN 3 MG TABLET 9 MG PO (19:59)
[2019-04-28] VITALS (9 sets, daily range): BP systolic 108–161; BP diastolic 60–86; PULSE 69–82; RESP 16–80; TEMP 36.2–37.6; O2SAT 92–96
--- NOTE | 2019-04-28 04:15 | PC.NURSE ---
CBG. 80 pt. requested some yogurt, no C/O pain. Pedal pulses + checked via doppler. Dressing to left hallux CDI. Will cont. POC & monitor.
[2019-04-28] MEDS: VANCOMYCIN 1,500 MG/300 ML FROZ.PIGGY 200 MG IV (06:21)
[2019-04-28] MEDS: SODIUM CHLORIDE 0.9% FLUSH 10 ML IV ×3 (06:21→22:17)
[2019-04-28] MEDS: CANDESARTAN 2 EACH PO (08:55)
[2019-04-28] MEDS: TAMSULOSIN 0.4 MG CAPSULE PO (08:56)
[2019-04-28] MEDS: ENOXAPARIN 40 MG/0.4 ML SYRINGE SUBCUT (08:56)
[2019-04-28] MEDS: ASPIRIN EC 81 MG TABLET PO (08:56)
[2019-04-28] MEDS: PROPRANOLOL 40 MG TABLET PO ×2 (08:56→22:17)
[2019-04-28] MEDS: CITALOPRAM 20 MG TABLET PO (08:56)
--- NOTE | 2019-04-28 11:14 | CM.DPC ---
Addendum entered by Lilia Chance R.N. 04/28/19 14:07: Segrei from [facility] called. Stated that they ran patient's insurance, and he would have a 20% co-pay. Stated that the cost would be approximately $168.00 a week. He stated that he would stop by in the morning and see patient. This manager of case management has not yet discussed cost with patient, for nursing associate and instructor is in room. If unable to discuss today, Sergei will discuss tomorrow. Welch is based on Vancomycin, but he mentioned that the cost would be similar with other antibiotics. Let him know that no PICC has been placed yet, secondary to bone biopsy results. Original Note: DCP Cont: Spoke to patient regarding discharge planning. Introduced self and role. Patient stated, he would rather not go to skilled. At this time, bone biopsy is pending. [facility]. Discussed home infusion, which patient would prefer, if needed. Other option is for him to go over to infusion/oncology department for outpatient infusions, if needed. Spoke to Sergei at [facility]. Let him know that Medicare if primary, which would not cover cost of infusions, but has secondary, [employer]. Sergei requested that information be faxed to them, and they can run it through his insurance. Faxed over face sheet, last Vanco trough, history and physical, med sheets, and recent prog note. Patient still has peripheral IV, for this will depend if he needs group home antibiotics. P: DCP to continue to follow closely. There are already two referrals sent to [facility] and [facility], but patient prefers to not go to skilled. Other option is [facility], depending if insurance covers, or outpatient infusion. Lilia Chance RN/Scout Leaser
[2019-04-28] MEDS: INSULIN ASPART 100 UNIT/ML INSULN PEN SUBCUT (14:07)
[2019-04-28] MEDS: CEFAZOLIN 1 GM/50 ML FROZ.PIGGY IV ×2 (14:14→22:19)
--- NOTE | 2019-04-28 15:46 | CM.DPC ---
Addendum entered by Lilia Chance R.N. 04/28/19 15:56: Did speak to patient's partner, Juan Carlos, for patient has given permission to contact. He stated, the cost is kind of expensive, but can think about it. Explained that Medicare does not cover IV antibiotics, but secondary covers some. Also mentioned that patient is reluctant to go to assisted. He will think about it and discuss it with his partner. Original Note: DCP Cont: Dr. Mo indicated that is is possible that patient will need continued IV antibiotics. Plan is for a PICC line to be inserted this pm. He stated that patient may be going on Cefazolin, Q8 hours. Updated Sergei at [facility], who will be by to see patient in the morning. Spoke to patient regarding potential cost of home antibiotic. He was under the impression that antibiotics are covered by Medicare. Let him know that Medicare does not cover home infusion, but his secondary insurance covers all but 20%. Let him know that Sergei at [facility] will be by in the morning to see patient. P: DCP to continue to follow. Patient should DC tomorrow, high probability on IV antibiotics. He does not want skilled, but is also still an option. Carlos at [facility] confirmed acceptance, but let him know that patient's first choice is home. [facility] also has referral. Lilia Chance RN/Furnace Operator And Tender
--- NOTE | 2019-04-28 16:02 | PM.PN.1 ---
Subjective Subjective Date Patient Seen: 04/28/19 Interval history: Patient is 73-year-old male with history of diabetes admitted due to cellulitis and possible osteomyelitis following left foot surgery in March of this year. The redness and swelling of the left foot are improving. Exam Vital Signs (past 8 hours): - 04/28/19 08:10 04/28/19 12:00 Temperature 98 F Pulse Rate 78 Respiratory Rate 20 Blood Pressure 114/60 Pulse Oximetry 94 93 Oxygen Delivery Method Room Air Oxygen Flow Rate 0 Narrative Exam Narrative: General: Alert and pleasant cooperative male in no acute distress Extremities: Left foot great toe with dry dressing, there is receding erythema of the distal left foot Objective Labs Result Diagrams: 04/26/19 05:07 04/26/19 05:07 Labs: Laboratory Results - last 24 hr 04/27/19 18:30 Vancomycin Trough 11.4 Assessment & Plan Assessment & Plan narrative: Patient is 73-year-old male with history of diabetes admitted due to cellulitis and possible osteomyelitis following left foot surgery in March of this year. 1. Acute Staph aureus left foot cellulitis with possible acute osteomyelitis of the left great toe -wound culture positive for methicillin sensitive staphylococcal aureus -discontinued vancomycin, started cefazolin 1 g IV q.8 hours -outpatient bone biopsy was performed on April 25, 2019 results pending -reviewed case with wound care, Dr. Jeff Davis, who spoke with Dr. Bettencourt for Podiatry, and plan is to continue patient on IV cefazolin and have him see Dr. Bettencourt as an outpatient later this week, at that time determination will be made whether to amputate the toe or managed nonsurgically -duration of IV antibiotic treatment will be dependent on whether bone biopsy reveals osteomyelitis and whether patient ultimately has the toe amputated or not -PICC line for outpatient antibiotic therapy 2. Diabetic foot ulcer, present on admission -local wound care treatments per direction of Dr. Davis 3. Type 2 diabetes -fair to good control with A1c 7.2% -continue basal bolus insulin -resume oral medications on discharge in addition to basal insulin 4. Coronary artery disease, chronic -stable, continue routine medications Patient with improving hospital course and likely can discharge tomorrow with close follow-up with Podiatry.
[2019-04-28] MEDS: ATORVASTATIN 20 MG TABLET 40 MG PO (19:03)
[2019-04-28] MEDS: INSULIN GLARGINE 100 UNIT/ML 3ML PEN 60 UNIT SUBCUT (22:14)
[2019-04-28] MEDS: MELATONIN 3 MG TABLET 9 MG PO (22:16)
--- NOTE | 2019-04-28 23:45 | PC.NURSE ---
JACKELYN shift pt AO and receptive to care. PIV saline locked with intermittent ABX. Urinal at bedside. Neuropathy to bilat lower extremities and reporting no pain. Red area from cellulitis marked. Left hallux covered in wrap gauze and changed during AM shift. CBG 127 and 155, no coverage, did administer daily 60 units of Lantus. Doppler pulses (x chase the spot) and biphasic sounds heard to dorsalis pedis bilat. Plan is to DC with PICC, however patient has some apprehension and has had conversations with Dr. Mo today about those, pt states he is still unsure if he wants PICC. pt suffers from vertigo at baseline and knows to reposition slowly.
--- NOTE | 2019-04-29 01:46 | PC.NURSE ---
Addendum entered by Traci Sepulveda R.N. 04/29/19 05:39: States he only took cat naps as unable to really sleep in the hospital. Denies any pain. Original Note: Patient is alert and oriented. Breath sounds diminished but CTA with RA sat of 93%. HRR. Denies nausea. BT present and states he is passing flatus but has not had BM since 04/23; declines offer of bowel meds or prune juice. Denies dysuria, frequency or urgency; voiding per urinal. Able to turn self in bed. When getting up is provided SBA as has chronic vertigo; knows he needs to sit on edge of bed prior to attempting to get up to move. Has reddened elbows with scabbed abrasions on left and psoriasis type patches of skin on right. Scabbed abrasions on right knee. Has multiple old bruises on abdomen (states from insulin injections) and an abrasion which is covered with a bandaid (patient uncertain how he sustained). Left great toe is reddened and swollen but redness within previously outlined markings. Dressing intact with small amount sanguinous drainage noted. Has chronic numbness in left LE from toes to just below calf. Denies pain. Fall risk score is moderate; bed alarm is activated.
[2019-04-29] MEDS: CEFAZOLIN 1 GM/50 ML FROZ.PIGGY IV (05:34)
[2019-04-29] MEDS: SODIUM CHLORIDE 0.9% FLUSH 10 ML IV ×2 (05:35→09:22)
[2019-04-29 05:40] VITALS: BP 167/70; PULSE 76; RESP 16; TEMP 36.9; O2SAT 93
[2019-04-29 08:00] VITALS: BP 163/98; PULSE 75; RESP 18; TEMP 36.6; O2SAT 91
--- NOTE | 2019-04-29 08:37 | PC.NURSE ---
BENEFIT SPECIALIST APPT pt had appt with Dr. Bettencourt for 04/29. Dr. Mo requested we reschedule it for later this week. [facility] called and made appt for 05/01 at 1330.
[2019-04-29] MEDS: ASPIRIN EC 81 MG TABLET PO (09:22)
[2019-04-29] MEDS: CITALOPRAM 20 MG TABLET PO (09:22)
[2019-04-29] MEDS: TAMSULOSIN 0.4 MG CAPSULE PO (09:22)
[2019-04-29] MEDS: PROPRANOLOL 40 MG TABLET PO (09:22)
[2019-04-29] MEDS: CANDESARTAN 2 EACH PO (09:22)
[2019-04-29] MEDS: ENOXAPARIN 40 MG/0.4 ML SYRINGE SUBCUT (09:22)
--- NOTE | 2019-04-29 11:55 | CM.DPC ---
Addendum entered by Lilia Chance R.N. 04/29/19 12:17: Spoke to Dr. Mo, hospitalist, regarding plan for patient. Patient will go home today on oral antibiotics,and will follow up with Dr. Bettencourt, junior network administrator. Updated Sergei at [facility], who will hold referral in case he needs outpatient infusions. Original Note: DCP Cont: Discussed patient at team rounds. Patient has been undecided about having PICC line. At this time, he does not want, but would like to discuss toe amputation here at the hospital with his junior network administrator. Spoke to Sergei at [facility], who stated he has made several attempts to reach patient, but have not yet been able to contact. He is aware that patient does not yet have a PICC line. Let Sergei know that this family caseworker would update him on status later on today, after he sees junior network administrator. P: DCP to continue to follow. Plans are still undecided, but have options of [facility], [facility], [facility], for he may need ferry terminal agent antibiotics IV. Lilia Chance RN/Farm Service Adviser
--- NOTE | 2019-04-29 12:16 | P.DS_ITS ---
History of Present Illness History of Present Illness Chief complaint: LEFT FOOT INFECTION FEVER Narrative: The patient is a 73-year-old male with PMH of HTN, CAD (s/p CABG), DM 2T (non-insulin dependent) w/ complications of proteinuria and polyneuropathy), HLD, obesity, prior tobacco dependence, vitamin D deficiency, BPH, and MDD. 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 On 03/28/2019 patient underwent a left hallux exostectomy for a bone spur. Patient has been following with Dr. Victoria Bettencourt at [facility]. After surgical procedure patient has developed progressive redness, edema, and purulence from surgical wound site. In the past 24 hours he has been having rigors and generalized malaise. Patient was seen at the wound clinic earlier in the day, now with concern for worsening edema and erythema. Erythema now with spread to mid foot. He continues to have purulent drainage. Patient is known to have diabetic polyneuropathy w/loss of sensation in the left foot being more than the right at baseline. On 04/24, wound culture grew Staph aureus for which he was prescribed ciprofloxacin 500 mg QID, taken 5 total doses. Today, bone biopsy was obtained. Patient does have a remote history of cellulitis in right lower extremity. No prior history of MRSA. Initial lab work from the ED was remarkable for WBC 15.2 lactate 2.2 ESR 59 CRP 16. XR of the left foot raised concern for osteomyelitis. Discharge Providers Provider Date of admission: 04/25/19 19:30 Discharge Date: 04/29/19 Primary care physician: Ravi Laughlin MD Consults: 04/25/19 21:16 Consult to Discharge Planning Routine Comment: 04/27/19 11:21 Consult to Respiratory Therapy Evaluate & Treat Comment: uses c-pap at home Physician Instructions: Evaluate and treat Discharge provider: Alexander Mo MD Summary Hospital Course Discharge Diagnosis: 1. Acute Staph aureus left foot cellulitis 2. Possible acute left great toe osteomyelitis due to Staph aureus 3. Diabetic foot ulcer left great toe 4. Type 2 diabetes, insulin requiring, fair control 5. Coronary artery disease, stable Hospital Course: Patient is 73-year-old male with history of diabetes admitted due to cellulitis and possible osteomyelitis following left foot surgery in March of this year. 1. Acute Staph aureus left foot cellulitis with possible acute osteomyelitis of the left great toe -cellulitis has largely resolved -discharging patient on oral doxycycline 100 mg twice daily with further antibiotic management to be determined after he sees doctor Victoria Bettencourt later this week for podiatry follow-up -wound culture positive for methicillin sensitive staphylococcal aureus -initially treated with vancomycin, switched to cefazolin 1 g IV q.8 hours on 04/28/2019 -outpatient bone biopsy was performed at [facility] on April 25, 2019 results pending -reviewed case with wound care, Dr. Jeff Davis, who spoke with Dr. Bettencourt for Podiatry, and patient has appointment with Dr. Bettencourt on 05/01/2019 to discuss further management including possible amputation of the great toe versus treating with oral or IV antibiotic 2. Diabetic foot ulcer, left great toe, present on admission -continue local wound care treatments per direction of Dr. Davis 3. Type 2 diabetes -fair to good control with A1c 7.2% -resume oral medications on discharge in addition to basal insulin 4. Coronary artery disease, chronic -stable, continue routine medications Status at Discharge Cognitive/behavioral status at discharge: oriented Functional status at discharge: independent ambulation Overall status at discharge: patient is back to baseline Time Spent with Patient Time spent: Less than 30 minutes Exam Vital Signs (past 8 hours): - 04/29/19 05:40 04/29/19 08:00 Temperature 98.5 F 97.9 F Pulse Rate 76 75 Respiratory Rate 16 18 Blood Pressure 167/70 H 163/98 H Pulse Oximetry 93 91 Oxygen Delivery Method Room Air Oxygen Flow Rate 0 Objective Labs Result Diagrams: 04/26/19 05:07 04/26/19 05:07 Discharge Plan Discharge Plan Patient Disposition: Home Discharge orders & Medications Prescriptions: New doxycycline hyclate 100 mg tablet 100 mg PO BID Qty: 30 RF: 0 Continued aspirin 81 MG tablet,delayed release (DR/EC) 81 mg PO QDAY Qty: 0 RF: 0 Lantus U-100 Insulin 100 unit/mL solution 60 unit subcut BID Qty: 0 RF: 0 glipizide 5 mg tablet 5 mg PO BID Qty: 180 RF: 1 candesartan 4 mg tablet 2 mg PO DAILY Qty: 90 RF: 3 citalopram 20 mg tablet 20 mg PO DAILY Qty: 90 RF: 3 metformin 1,000 mg tablet 1,000 mg PO BID Qty: 180 RF: 3 propranolol 40 mg tablet 40 mg PO BID Qty: 180 RF: 3 tamsulosin [Flomax] 0.4 mg capsule 0.4 mg PO QDAY Qty: 90 RF: 3 tolterodine 2 mg capsule,extended release 24hr 2 mg PO DAILY Qty: 90 RF: 3 melatonin 10 mg Tablet 10 mg PO BEDTIME RF: 0 atorvastatin [Lipitor] 40 mg tablet 40 mg PO QPM RF: 0 Discontinued cephalexin 500 mg Capsule 500 mg PO TID RF: 0 Follow up/Referrals: Ravi Laughlin MD [Primary Care Provider] - Victoria Bettencourt DPM [Physician] - 05/01/19 (Pt has appt on this week) Discharge Health Status Multidrug resistant organism: No MDRO Diet/Activity/Treatments Diet: Diet as Tolerated Skin/Wound/Dressing Care Report to your healthcare provider any signs of infection, such as:: chills, fever, unusual drainage and unusual redness Discharge Data Primary Care Provider: Ravi Laughlin
[2019-04-29 13:00] VITALS: BP 110/67; PULSE 72; RESP 18; TEMP 36.7; O2SAT 97
== END 2019-04-29 14:25 | disposition home or self-care (01) | DRG 863 ==
LOC: ED 18:44 → AC 19:31
PROVIDERS: Nurse Practitioner Gerontology; Admitting Provider Internal Medicine; Emergency Provider Emergency Medicine; PCP Student in an Organized Health Care Education/Training Program; Visit Provider Internal Medicine
DX: T81.49XA Infection following a procedure, other surgical site, initial encounter (principal); M86.172 Other acute osteomyelitis, left ankle and foot; T81.30XA Disruption of wound, unspecified, initial encounter; L03.032 Cellulitis of left toe; B95.61 Methicillin susceptible Staphylococcus aureus infection as the cause of diseases classified elsewhere; E11.42 Type 2 diabetes mellitus with diabetic polyneuropathy; E66.9 Obesity, unspecified; Z68.36 Body mass index [BMI] 36.0-36.9, adult; E11.621 Type 2 diabetes mellitus with foot ulcer; E11.69 Type 2 diabetes mellitus with other specified complication; L97.529 Non-pressure chronic ulcer of other part of left foot with unspecified severity; I10 Essential (primary) hypertension; I25.10 Atherosclerotic heart disease of native coronary artery without angina pectoris; Z95.1 Presence of aortocoronary bypass graft; E78.5 Hyperlipidemia, unspecified; Z87.891 Personal history of nicotine dependence; N40.0 Benign prostatic hyperplasia without lower urinary tract symptoms; F32.9 Major depressive disorder, single episode, unspecified; Z79.4 Long term (current) use of insulin
CPT/HCPCS: 11044; 36415; 73630; 80048; 80053; 80202; 81001; 82962; 83605; 83880; 85025; 85651; 86140; 87040; 87070; 87075; 87077; 87147; 87186; 87205; 94660; 94760; 94762; 96365; 96366; 99214; 99283; 99284; J1650; J3370

== ENCOUNTER → 2019-04-25 18:35 | Outpatient (ROUT) | payer MEDICARE, BC, SELFPAY | PROVIDERS: PCP Student in an Organized Health Care Education/Training Program; Visit Provider Family Medicine | DX: E11.621 Type 2 diabetes mellitus with foot ulcer (principal); L97.526 Non-pressure chronic ulcer of other part of left foot with bone involvement without evidence of necrosis; L03.116 Cellulitis of left lower limb | CPT/HCPCS: 87070; 87075; 87077; 87186; 87205 ==

== ENCOUNTER 2019-05-05 09:31 | Day surgery (SDC) | payer MEDICARE, BC, SELFPAY ==
[2019-04-25 19:54] VITALS: BMI 36.7
[2019-05-05] VITALS (13 sets, daily range): BP systolic 131–174; BP diastolic 64–90; PULSE 69–82; RESP 15–22; TEMP 35.6–36.9; O2SAT 92–98; BMI 36.6; BMI 35.2
--- NOTE | 2019-05-05 | PATH_ITS ---
[facility] Accession Number: [id number] . 01 Material submitted: . PHALANX - LEFT FIRST PROXIMAL PHALANX . 01 Clinical history: . L GREAT TOE REMOVAL . 01 Diagnosis: Bone, Left First Proximal Phalanx, Resection: Portion of bone and connective tissue with changes of acute osteomyelitis. [facility] 05/09/2019 1807 Local . 01 Electronically signed: . Norma Espinosa MD, Pathologist NPI- [id number] . 01 Gross description: . Received in formalin, labeled left first proximal phalanx, rule out osteo, is a resected phalanx (length-2.6 cm, diameter-2.6 x 2.5 cm) which cannot be sliced with a scalpel. The resection margin is inked blue. Perpendicularly trisected. The middle full cross-section is decalcified and submitted in cassette A1. ([id number]) /[facility] 05/06/2019 1654 Local . 01 Pathologist provided ICD-10: M86.179 . 01 CPT . 611273, 802457 Performed at: [address] [id number] MD Angel Cedeno MD Phone: [phone]
[2019-05-05] MEDS: LACTATED RINGERS 1,000 ML 42 ML IV ×2 (10:27→14:24)
--- NOTE | 2019-05-05 11:30 | PM.PREOP ---
Pre-operative Note Interval Note History & Physical reviewed/Exam performed by Physician: Yes Changes to H&P: No
--- NOTE | 2019-05-05 11:30 | PM.OP.1 ---
Operative Date/Time/Diagnoses Date of procedure: 05/05/19 Time of procedure: 11:30 Pre-op diagnosis: Left great toe wound, suspect osteomyelitis. Post-op diagnosis: same Procedure & Clinicians Procedure: Left great toe amputation, partial first metatarsal head resection, and hardware removal first metatarsophalangeal joint Same procedure as scheduled: Yes Indications: Worsening wound to the left great toe with history of great toe fusion and recent exostectomy of chronically-dislocated interphalageal joint. Suspect osteomyelitis, wound dehiscence, and decided to undergo surgical resection as conservative measures failed to heal the wound. Surgeon: Victoria Bettencourt Click Yes if Unassisted: Yes Anesthesia Type: MAC +/- Operative Notes Closure Type: primary Specimen(s): other (Culture 1)soft tissue MT1 head, 2)leading edge MT1 head s/p resection, 3)proximal phalanx hallux to pathology) Applied: other (1/4 Nu-Gauze into wound distally) Estimated Blood Loss (mL): 30 Blood products transfused: none Tourniquet time (min): 32 Procedure in detail: The patient was brought to the operating room and placed on the operating table in the supine position. The tourniquet was placed about the left ankle. Well padded appropriately aligned. After induction of IV sedation, the foot and ankle were prepped and draped in the usual aseptic manner. Local anesthesia was performed to the 1st ray. After check of anesthesia, a full-thickness circumferential incision was made around the great toe including the wound dehiscence location within the perimeter. It was easiest to first disarticulate at the interphalangeal joint. The distal portion of hallux was passed from the field. This location showed significant degenerative changes at the lateral aspect of the joint on the distal phalanx. The decision was made at this point to S Javon Gasca 8 the toes and foot and allow the tourniquet to go up. The incision was further continued into the former metatarsophalangeal joint linearly. I was able to find the screws on the medial aspect of the former joint and each was able to be removed cleanly and inspected noting full removal. There appeared to be in the mid section of the more distal screw, a small area where the threads were slightly bent which may be consistent with initial placement from the crossing screw. The bone was inspected and the decision for removal was made just proximal to the former distal metatarsal head. It should be noted that the culture of the soft tissue was done prior to this and once I created the distal and proximal portions of the 1st ray, the distal was sent to pathology and the leading edge remaining of the proximal aspect of the 1st metatarsal head was then sent for culture. The bone appeared to be clean and I planed it to allow for easier closure. The area was irrigated with copious amounts of normal sterile saline. No necrotic tissue or abscesses were noted at this more proximal level. Skin and tissue was revised to allow for appropriate closure. The tourniquet was deflated, a prompt hyperemic response was seen to the foot. Vessels were cauterized and ligated as necessary. 3-0 Vicryl was used subcutaneously for closure and 3-0 nylon for the skin. Quarter-inch plain Nu Gauze was used for packing. The area was dressed with a sterile lightly compressive dressing. Complications: none Post-operative Condition: stable Disposition: other (Admitted to surgical floor for observation as outpatient with bed, likely d/c to home in the morning barring any complications.) Plan for aftercare: Following a period of postoperative monitoring patient be discharged to the floor for overnight monitoring. We will want to make sure that his pain is controlled but also that he has appropriately reinforce dressings. He will be nonweightbearing. He continues his oral antibiotics. He will then be discharged home on written and oral postoperative instructions including keeping the dressing dry and intact, and DVT prevention techniques along with nonweightbearing. He will see me on Sunday for dressing change and likely packing removal. We will then continue his nonweightbearing status following up the following Sunday unless there is a concern earlier and we will once again review holiday plans for him.
[2019-05-05] MEDS: BUPIVACAINE 0.5% (PF) VIAL 30 ML INJ (14:22)
[2019-05-05] MEDS: LIDOCAINE 2% INJ MDV 20 ML INJ (14:23)
--- NOTE | 2019-05-05 16:31 | SUR.PHASEI ---
8550 - Patient taken up to room 228. Report given to receiving RN Clara. All belongings taken up to room. Patient transferred in bed. Alert and oriented, denies pain. Dressing C/D/I. Receiving RN and aide in room with patient. Oriented to room and call light, call light within reach.
[2019-05-05] MEDS: METFORMIN HCL 500 MG TABLET 1000 MG PO (20:18)
[2019-05-05] MEDS: MELATONIN 3 MG TABLET 9 MG PO (20:18)
[2019-05-05] MEDS: glipiZIDE 5 MG TABLET PO (20:18)
[2019-05-05] MEDS: PROPRANOLOL 40 MG TABLET PO (20:20)
[2019-05-05] MEDS: INSULIN ASPART 100 UNIT/ML INSULN PEN SUBCUT (20:50)
[2019-05-05] MEDS: INSULIN GLARGINE 100 UNIT/ML 10ML VIAL 60 UNIT SUBCUT (20:52)
--- NOTE | 2019-05-05 21:33 | PC.NURSE ---
Pt arrived on unit at approx 1625. He denied pain and nausea. He was able to eat evening meal and has voided qs clear yellow. +BTs. LS clear and S1, S2. VSS. 1630 blood glucose = 130, hs = 200.
[2019-05-06 03:15] VITALS: BP 149/81; PULSE 70; TEMP 36.7; O2SAT 94
[2019-05-06 05:30] LABS: Hematocrit 32.4 % (41-53); Hemoglobin 10.9 g/dL (13.5-17.5); Mean Corpuscular HGB Conc 33.6 % (30-36); Mean Corpuscular Volume 89.5 fL (80-100); Platelet Count 433 X10^3/uL (150-400); Red Blood Cell Count 3.62 X10^6/uL (4.5-5.9); Red Cell Distribution Width 14.5 % (11.6-14.8); White Blood Cell Count 11.4 X10^3/uL (4.5-11.0)
--- NOTE | 2019-05-06 06:44 | PC.NURSE ---
PT doing very well. Reports no pain, also have neuropathy in both feet. Pt's blood sugar overnight was 75, asymptomatic, he did not want to drink any juice or eat anything until breakfast; asked patient twice if he would drink or eat something but he really wants to just wait til breakfast. Discussed with him obviously not taking his morning insulin. Pt has not been OOB yet; Left foot elevated on pillow. Left foot is wrapped up in jc bandage. Voiding adequately. Right calf SCD on throughout night.
--- NOTE | 2019-05-06 07:42 | PM.PNPO.1 ---
Subjective Subjective Date Patient Seen: 05/06/19 Time Patient Seen: 07:42 Interval history: POD #1 s/p left great toe amputation, partial first metatarsal head resection, and hardware removal first metatarsophalangeal joint with Dr. Bettencourt. No complaints of pain this morning. Patient is afebrile. BS 76 this morning. Exam Vital Signs (past 8 hours): - 05/05/19 23:55 05/06/19 03:15 Temperature 97.8 F 98.0 F Pulse Rate 72 70 Respiratory Rate 18 Blood Pressure 150/84 H 149/81 H Pulse Oximetry 96 94 Oxygen Delivery Method Room Air Oxygen Flow Rate 0 Narrative Exam Narrative: Patient lying in bed in no acute distress. Dressing is saturated with dried blood. Dressing changed no active bleeding from incision. New dressing applied. Calves are soft, compressible, nontender bilaterally. Objective Labs Result Diagrams: 05/06/19 05:00 Labs: Laboratory Results - last 24 hr 05/06/19 05:00 WBC 11.4 H RBC 3.62 L Hgb 10.9 L Hct 32.4 L MCV 89.5 MCH 30.0 MCHC 33.6 RDW 14.5 Plt Count 433 H Assessment & Plan Post-op Postoperative Procedures: Procedures Operation Date: 05/05/19 11:15 Actual Procedures Side Surgeon p Great toe removal, poss. removal of portion of 1st metatarsal. poss. hardware removal great toe Left Victoria Bettencourt DPM Dressing changed this morning. Patient will be non-weightbearing. Patient will follow up with Dr. Bettencourt tomorrow. Plan to discharge home today. Quality VTE Deep Vein Thrombosis/Pulmonary Embolism Present on Admission: No
[2019-05-06 07:50] VITALS: BP 131/82; PULSE 74; RESP 14; TEMP 36.8; O2SAT 95
--- NOTE | 2019-05-06 09:03 | CM.DANOTE ---
Discharge Planning/Care Management DCP: assesssment: case received, EMR reviewed and met with pt. Introduced self and role. Pt is a 73 year old male who admitted yesterday for a planned surgery: L great toe removal: in setting of type II diabetes. Surgeon: Victoria Bettencourt PCP: Ravi Laughlin Payer: Medicare and [facility]. Ortho PA Sandra was here early this morning, changed the dressing on pt's foot and confirmed the discharge to home orders. Pt is eating breakfast, packed, says he is just waiting for his [facility] to arrive to take him home. Pt as all needed DMEs already including a scooter and a post of shoe that he is to wear when he is out of bed. Will be NWB on the L foot and will follow up with Dr. Bettencourt as planned. EDUARD Law is updated. Home: today as per above. CM Discharge Assessment Start: 05/06/19 09:01 Freq: Status: Active Protocol: Document 05/06/19 09:02 ITV (Rec: 05/06/19 09:02 ITV [id number]) Discharge Planning Assessment Advance Directives? Yes: POLST History Provided By Patient,Medical Record Household Members spouse Discharge Plan Home Review Status In Process Pre-Anesthesia Assessment Start: 05/05/19 07:58 Freq: Status: Active Protocol: Document 05/05/19 07:58 CAB (Rec: 05/05/19 08:04 CAB [id number]) Pre-Anesthesia Assessment Patient Information Reviewed Via Chart Review Primary Care Provider Ravi Laughlin Seen Specialist in Last 12 Months Yes Specialist Seen [employer] Developer,Urologist,Other Comment Wound Clinic Preferred Language Amharic Height 180.34 cm Weight 119.295 kg Body Mass Index (BMI) 36.6 Dentition Type Partial- Upper & Lower Hx Anesthesia Reactions No Hx Family Anesthesia Reaction No Hx Malignant Hyperthermia No Hx Blood Transfusion Reaction No Anesthesia Review Requested No Mechanical Design Engineer Yes: discuss resources alcohol intake current alcohol intake frequency a few times a month Smoking Status Former smoker how long ago did patient quit smoking quit in 1985 Substance Use Type does not use Musculoskeletal Symptoms Amputation,Deformity Patient is completely paralyzed or No completely immobile Mental Status Oriented to own ability Comment Pt will be non-weightbearing Is patient on oxygen? No Does patient have WEBER/SOB No Hx Sleep Apnea No CPAP/BIPAP use prescribed and used routinely Currently Taking a Beta Aba Yes: Propranolol Hx Pacemaker/ICD No Pacemaker Rep Required? 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 Do You Have Any Cultural Practices That No May Affect Your HC Choices? Emergency Contact Name Juan Carlos Moreno (spouse) Emergency Contact Advance Directives? Yes: POLST Power of Elementary School Reading Teacher Yes Power of Elementary School Reading Teacher Name [facility] Power of Elementary School Reading Teacher
[2019-05-06] MEDS: TOLTERODINE LA 2 MG CAP PO (09:09)
[2019-05-06] MEDS: INSULIN GLARGINE 100 UNIT/ML 10ML VIAL 60 UNIT SUBCUT (09:10)
[2019-05-06] MEDS: PROPRANOLOL 40 MG TABLET PO (09:10)
[2019-05-06] MEDS: CITALOPRAM 20 MG TABLET PO (09:11)
[2019-05-06] MEDS: ASPIRIN EC 81 MG TABLET PO (09:11)
[2019-05-06] MEDS: glipiZIDE 5 MG TABLET PO (09:12)
[2019-05-06] MEDS: TAMSULOSIN 0.4 MG CAPSULE PO (09:12)
[2019-05-06] MEDS: METFORMIN HCL 500 MG TABLET 1000 MG PO (09:12)
--- NOTE | 2019-05-06 12:55 | PC.NURSE ---
Discharge: IV dc'd intact. He did get his Lantus this morning, and his PO Diabetic meds, after long discussion with this senior mortgage underwriter (patient wanted to take them and said he would have done so at home with similar blood sugar and breakfast intake). Blood sugar before lunch was 130 and he ate a turkey sandwich before he left. No pain. Neuro status to BLE's WNL for patient. Has neuropathy/numbness at baseline, denies pain. BLE's warm and pink, cap refill <2 sec. Dressing to L foot changed by PA this morning and was C/D/I at time of discharge. LLL in protective shoe at discharge. Reviewed d/c instructions thoroughly with patient. He will follow up with Dr Bettencourt tomorrow as previously scheduled (patient has exact appt time in his phone calendar). Reviewed all d/c instructions thoroughly with patient. Keep LLE clean/dry, elevate as much as possible, no ice. No new meds, no changes to home meds. Encouraged frequent ankle waves/pumps for DVT prophylaxis- patient performed return demonstration and verbalized understanding. Patient understands NWB status LLE and has scooter at home. Verbalized understanding of all instructions and stated no further questions. All personal belonging collected and sent with patient. Wheeled out to private vehicle by nursing staff.
== END 2019-05-06 13:05 | disposition home or self-care (01) ==
LOC: OR 09:33 → AC 09:34
PROVIDERS: Family Provider Student in an Organized Health Care Education/Training Program; PCP Student in an Organized Health Care Education/Training Program; Visit Provider Podiatrist
PROC: (CPT 28820; principal; 2019-05-05 11:15)
DX: M86.179 Other acute osteomyelitis, unspecified ankle and foot (principal); T81.31XA Disruption of external operation (surgical) wound, not elsewhere classified, initial encounter; E11.42 Type 2 diabetes mellitus with diabetic polyneuropathy; M20.42 Other hammer toe(s) (acquired), left foot; M19.072 Primary osteoarthritis, left ankle and foot; I25.10 Atherosclerotic heart disease of native coronary artery without angina pectoris; I10 Essential (primary) hypertension; E11.621 Type 2 diabetes mellitus with foot ulcer; E66.9 Obesity, unspecified; Z95.1 Presence of aortocoronary bypass graft; Z79.4 Long term (current) use of insulin
CPT/HCPCS: 28820; 20680; 36415; 82962; 85027; 87070; 87075; 87077; 87147; 87176; 87186; 87205; J2250; J2704; J3010

== ENCOUNTER 2019-06-20 07:41 | Day surgery (SDC) | payer MEDICARE, BC, SELFPAY ==
[2019-05-05 20:05] VITALS: BMI 35.2
[2019-06-19 11:52] VITALS: BMI 36.6
[2019-06-20] VITALS (7 sets, daily range): BP systolic 105–158; BP diastolic 53–85; PULSE 68–76; RESP 12–20; TEMP 36.2–36.7; O2SAT 94–97; BMI 36.6
--- NOTE | 2019-06-20 | PATH_ITS ---
[facility] Accession Number: [id number] . 01 Material submitted: . toe - LEFT SECOND TOE . 01 Clinical history: . R/O OSTEOMYELITIS . 02 Diagnosis: Left Second Toe, Amputation: Skin with ulceration and associated acute and chronic inflammation that extends to the deep subcutaneous tissue. Phalanx with acute osteomyelitis and patchy reactive changes. . MRV 06/23/2019 1439 Local . 02 Electronically signed: . Margarita George MD, Pathologist NPI- [id number] . 01 Gross description: . Received in formalin, labeled left second toe R/O osteomyelitis, is a disarticulated toe (6.5 cm AP, 2.8 cm SI, 2.5 cm ML). The toenail is absent. The entire anterior aspect is ulcerated and the surrounding skin is gongora, focally firm and flat. The underlying bone is partially easily sliced with a scalpel. Ink code: black-superior, orange-inferior. Section code: (A1) skin and soft tissue margins, in store marketing representative; (A2) proximal bone, in store marketing representative serial sections; (A3) ulcerated area, in store marketing representative serial sections; (A4) underlying bone, in store marketing representative serial section. Note: The bone sections have been decalcified. ([id number]) /MRV 06/22/2019 2153 Local . 02 Pathologist provided ICD-10: E11.42, E11.621, M20.42, M19.072 . 02 CPT . 086373, 721860 Performed at: [address] [facility], [place], [place] [id number] MD Angel Cedeno MD Phone: [phone] Performed at: [address] [facility] [id number] [place] [id number] MD Mayela Cordero MD Phone: [phone]
[2019-06-20] MEDS: LACTATED RINGERS 1,000 ML 42 ML IV (08:05)
--- NOTE | 2019-06-20 09:49 | PM.PREOP ---
Pre-operative Note Interval Note History & Physical reviewed/Exam performed by Physician: Yes Changes to H&P: No
--- NOTE | 2019-06-20 09:49 | PM.OP.1 ---
Operative Date/Time/Diagnoses Date of procedure: 06/20/19 Time of procedure: 09:49 Pre-op diagnosis: Left second toe hammertoe with ulceration, cellulitis Post-op diagnosis: same Procedure & Clinicians Procedure: Left second toe amputation [[id number]] Indications: 73-year-old male with semi rigid hammertoe developed an ulceration to the tip and has not had success in healing this. Based on the potential future risk for continued development of ulceration and infection the decision has been made with he and I to remove the digit at the metatarsophalangeal joint. We spoke the risks, potential complications as well as expected outcomes. Consent is signed and there are no contraindications to the procedure at this time. Surgeon: Victoria Bettencourt Click Yes if Unassisted: Yes Anesthesia Type: Sedation Operative Notes Closure Type: primary Specimen(s): other (Left 2nd metatarsal head culture swab sent for Gram stain, culture and sensitivity) Estimated Blood Loss (mL): 30 Blood products transfused: none Procedure in detail: The patient was brought to the operating room and placed on the operating table in the supine position, tourniquet was placed about the left ankle. Well padded appropriately aligned. After induction of anesthesia the foot and ankle were prepped and draped in the usual aseptic manner. After check of anesthesia a full-thickness circumferential incision was made around the 2nd toe. This was then continued into the metatarsophalangeal joint linearly. The toe was carefully disarticulated. Soft tissue swab was placed into the 2nd metatarsal head area x2 and passed from the field to collect culture and sensitivity as well as Gram stain. The toe was also passed from the field to pathology. At this point the IV antibiotics were started. The area was irrigated with copious amounts of normal sterile saline. No necrotic tissue or abscesses were noted. Skin and deep tissue was revised to allow for appropriate closure. Vessels were cauterized and ligated as necessary. Of note, the tourniquet was not ever inflated during the procedure. 4-0 Vicryl was used subcutaneously for closure and 2-0, 4-0 nylon to the skin. The area was dressed with a sterile lightly compressive dressing. Complications: none Post-operative Condition: stable Disposition: PACU Plan for aftercare: Following a period of postoperative monitoring, the patient be discharged home on written and oral postoperative instructions including keeping the dressing dry and intact, avoiding ambulation on the foot, elevating the foot when seated home. DVT prevention techniques have been reviewed. For the 1st postoperative visit the dressing will be changed and close to the 3rd to 4th postoperative week we will likely remove the sutures. He did not have a postoperative shoe with him today, it was left at home. I talked to he and his partner about making sure that this gets applied as soon as he gets home and they voiced understanding. We will also review the culture results as soon as those are available in the upcoming week.
[2019-06-20] MEDS: ACETAMINOPHEN 325 MG TABLET 975 MG PO (09:55)
[2019-06-20] MEDS: GABAPENTIN 300 MG CAPSULE PO (09:56)
[2019-06-20] MEDS: CEFAZOLIN 2 GM/100 ML FROZ.PIGGY IV (10:35)
--- NOTE | 2019-06-20 10:35 | SUR.OPER ---
Supine on padded OR bed, head on pillow, arms secured on padded arm boards at <90 degrees abduction, legs uncrossed, safety belt at abdomen, gel bump under left hip, tape over blanket over right lower leg.
[2019-06-20] MEDS: LIDOCAINE 2% INJ MDV 20 ML INJ (10:48)
[2019-06-20] MEDS: BUPIVACAINE 0.5% (PF) VIAL 30 ML INJ (10:48)
== END 2019-06-20 12:18 | disposition home or self-care (01) ==
LOC: OR 07:43
PROVIDERS: Family Provider Student in an Organized Health Care Education/Training Program; PCP Student in an Organized Health Care Education/Training Program; Visit Provider Podiatrist
PROC: (CPT 28820; principal; 2019-06-20 09:15)
DX: M86.072 Acute hematogenous osteomyelitis, left ankle and foot (principal); E11.621 Type 2 diabetes mellitus with foot ulcer; M20.42 Other hammer toe(s) (acquired), left foot; E11.42 Type 2 diabetes mellitus with diabetic polyneuropathy; L97.522 Non-pressure chronic ulcer of other part of left foot with fat layer exposed; M19.072 Primary osteoarthritis, left ankle and foot; Z79.4 Long term (current) use of insulin; G47.33 Obstructive sleep apnea (adult) (pediatric); I25.10 Atherosclerotic heart disease of native coronary artery without angina pectoris; Z95.1 Presence of aortocoronary bypass graft; I10 Essential (primary) hypertension
CPT/HCPCS: 28820; 87070; 87075; 87077; 87147; 87186; 87205; J0690; J2704

== ENCOUNTER → 2020-01-07 08:51 | Outpatient (CLI) | payer MEDICARE, BC, SELFPAY ==
[2019-05-05 20:05] VITALS: BMI 35.2
[2020-01-07 10:06] LABS: Hemoglobin A1C% w Est Avg Glu 6.5 % (4.0-6.0)
[2020-01-07 10:07] LABS: Creatinine Urine Random 193.7 mg/dL
[2020-01-07 10:30] LABS: Microalbumi Creatinin Ratio Ur 119.7 ug/mg CR (<30); Microalbumin Urine Random 23.2 mg/dL (0-1.6)
== END ==
PROVIDERS: Family Provider Student in an Organized Health Care Education/Training Program; PCP Student in an Organized Health Care Education/Training Program; Referring Provider Student in an Organized Health Care Education/Training Program; Visit Provider Student in an Organized Health Care Education/Training Program
DX: E11.69 Type 2 diabetes mellitus with other specified complication (principal); E66.9 Obesity, unspecified
CPT/HCPCS: 36415; 82043; 82570; 83036

== ENCOUNTER → 2020-07-20 11:00 | Outpatient (CLI) | payer MEDICARE, BC, SELFPAY ==
[2019-05-05 20:05] VITALS: BMI 35.2
[2020-07-20 11:31] LABS: Add Manual Diff / Slide Review NO; Basophils Absolute Auto 100 /uL (0-100); Basophils Percent Auto 0.6 % (0-2); Eosinophils Absolute Auto 200 /uL (0-450); Eosinophils Percent Auto 1.9 % (2-4); Hematocrit 43.2 % (41-53); Lymphocytes Absolute Auto 1400 /uL (1100-4500); Lymphocytes Percent Auto 13.3 % (25-40); Mean Corpuscular HGB Conc 32.3 % (30-36); Mean Corpuscular Volume 92.8 fL (80-100); Monocytes Absolute Auto 900 /uL (0-900); Monocytes Percent Auto 8.7 % (3-14); Neutrophils Absolute Auto 7800 /uL (1500-7000); Neutrophils Percent Auto 75.5 % (50-75); Platelet Count 267 X10^3/uL (150-400); Red Blood Cell Count 4.66 X10^6/uL (4.5-5.9); Red Cell Distribution Width 14.1 % (11.6-14.8); White Blood Cell Count 10.4 X10^3/uL (4.5-11.0)
[2020-07-20 11:59] LABS: Hemoglobin A1C% w Est Avg Glu 6.1 % (4.0-6.0)
[2020-07-20 12:16] LABS: BUN Creatinine Ratio 37.1 (6-22); Blood Urea Nitrogen 33 mg/dL (9-20); Estimated Glomerular Filt Rate > 60.0 mL/min (>60)
== END ==
PROVIDERS: Family Provider Student in an Organized Health Care Education/Training Program; PCP Student in an Organized Health Care Education/Training Program; Referring Provider Student in an Organized Health Care Education/Training Program; Visit Provider Student in an Organized Health Care Education/Training Program
DX: G47.33 Obstructive sleep apnea (adult) (pediatric) (principal); E11.21 Type 2 diabetes mellitus with diabetic nephropathy; M86.9 Osteomyelitis, unspecified; E11.42 Type 2 diabetes mellitus with diabetic polyneuropathy
CPT/HCPCS: 36415; 82565; 83036; 84520; 85025

== ENCOUNTER → 2020-09-09 12:41 | Outpatient (CLI) | payer MEDICARE, BC, SELFPAY ==
[2019-05-05 20:05] VITALS: BMI 35.2
[2020-09-09] MEDS: COVID-19 VACC #1, MRNA(MOD) 100 MCG/0.5 ML VIAL IM (12:47)
== END ==
PROVIDERS: Family Provider Student in an Organized Health Care Education/Training Program; PCP Student in an Organized Health Care Education/Training Program; Visit Provider Internal Medicine
DX: Z23 Encounter for immunization (principal)
CPT/HCPCS: 0011A; 91301

== ENCOUNTER → 2020-10-07 12:29 | Outpatient (CLI) | payer MEDICARE, BC, SELFPAY ==
[2019-05-05 20:05] VITALS: BMI 35.2
[2020-10-07] MEDS: COVID-19 VACC #2, MRNA(MOD) 100 MCG/0.5 ML VIAL IM (12:34)
== END ==
PROVIDERS: Family Provider Student in an Organized Health Care Education/Training Program; PCP Student in an Organized Health Care Education/Training Program; Visit Provider Internal Medicine
DX: Z23 Encounter for immunization (principal)
CPT/HCPCS: 0012A; 91301

== ENCOUNTER 2020-11-17 11:01 | Emergency (ER) | payer MEDICARE, OTHER, SELFPAY ==
[2019-05-05 20:05] VITALS: BMI 35.2
[2020-11-17 11:08] VITALS: BP 139/79; PULSE 82; RESP 18; TEMP 36; O2SAT 93; BMI 35.9
--- NOTE | 2020-11-17 11:09 | DI.RAD.S_ITS ---
PROCEDURE: XR CHEST 2V INDICATIONS: cough, hemoptysis TECHNIQUE: 2 views of the chest were acquired. COMPARISON: None. FINDINGS: Surgical changes and devices: None. Lungs and pleura: Lungs are mildly edematous. No pleural effusions or pneumothorax. Mediastinum: Mediastinal contours are normal. Heart size is mildly enlarged. Bones and chest wall: No suspicious bony abnormalities. Soft tissues appear unremarkable. IMPRESSION: Mild chronic CHF pattern, possible COPD given the relatively large lung volumes. Dictated by: Sae Wilder M.D. on 11/17/2020 at 11:56 Approved by: Sae Wilder M.D. on 11/17/2020 at 11:57
--- NOTE | 2020-11-17 11:20 | ED_ITS ---
HPI - SOB/Dyspnea General Chief Complaint: Shortness of Breath/Dyspnea Stated Complaint: COUGHING UP BLOOD FOR FEW DAYS Time Seen by Provider: 11/17/20 11:08 Source: patient Mode of arrival: Ambulatory Limitations: no limitations History of Present Illness HPI Narrative: 75M former smoker with the history of hyperlipidemia and NIDDM presents with persistent cough and hemoptysis for the past few days. He states he feels like it started when he swallowed something ?down the wrong pipe ?a few days ago and has been coughing ever since. Over the past day or so the cough has produced pinkish sputum and then today what appeared to be zack blood. He is not dizzy nor weak or lightheaded. He denies any chest pain or shortness of breath. He has had what he describes as fever and chills but this seems to be associated just with coughing spell and resolved quickly. He denies recent travel, history of blood clot or cancer. He is a former smoker. He denies any lower extremity pain, swelling or redness. He does not take any blood thinners MD Complaint: cough Onset (ago): day(s) Context: choking/aspiration Severity: moderate Consistency/Duration: constant Relieving factors: nothing Exacerbating factors: nothing Associated symptoms: hemoptysis Treatment prior to arrival: none Related Data Home Medications Medication Instructions Recorded Confirmed aspirin 81 mg PO QDAY #0 01/09/17 05/26/20 melatonin 10 mg PO BEDTIME 04/25/19 05/26/20 Previous Rx's Medication Instructions Recorded BD Ultra Fine [place] #100 each 10/13/19 atorvastatin 40 mg tablet 40 mg PO QPM #90 tab 05/26/20 candesartan 4 mg tablet 2 mg PO DAILY #45 tab 05/26/20 citalopram 20 mg tablet 20 mg PO DAILY #90 tab 05/26/20 clobetasol 0.05 % topical cream 1 applic TOPICAL BID PRN #45 g 05/26/20 propranolol 40 mg tablet 40 mg PO BID #180 tab 05/26/20 tamsulosin 0.4 mg capsule 0.4 mg PO QDAY #90 cap 05/26/20 tolterodine 2 mg capsule,extended 2 mg PO DAILY #90 cap 05/26/20 release 24 hr glipizide 5 mg tablet 5 mg PO DAILY #90 tab 07/20/20 insulin glargine 100 unit/mL (3 60 unit SUBCUT BID #45 ml 08/03/20 mL) subcutaneous pen metformin 1,000 mg tablet 1,000 mg PO BID #180 tab 10/12/20 doxycycline hyclate 100 mg PO BID #20 tab 11/17/20 Allergies Allergy/AdvReac Type Severity Reaction Status Date / Time Iodinated Contrast Media Allergy Severe ANAPHALAXIS Verified 05/26/20 09:22 [IODINATED CONTRAST- ORAL AND IV DYE] levofloxacin [LEVOFLOXACIN] Allergy Unknown Hives Verified 05/26/20 09:22 lisinopril [LISINOPRIL] Allergy Unknown COUGH Verified 05/26/20 09:22 Review of Systems Constitutional Constitutional: Denies chills, Denies fatigue, Denies fever(s), Denies frequent falls, Denies lethargy and Denies weakness Eyes Eyes: Denies change in vision, Denies eye discharge, Denies irritation and Denies loss of vision ENT Ears, Nose, Mouth, and Throat: Denies change in voice, Denies dizziness, Denies neck pain, Denies sore throat and Denies throat swelling Cardiovascular Cardiovascular: Denies chest pain, Denies irregular heart rhythm, Denies lightheadedness, Denies palpitations, Denies dyspnea, Denies dyspnea on exertion and Denies orthopnea Respiratory Respiratory: Denies cough, Reports hemoptysis, Denies dyspnea, Denies dyspnea on exertion and Denies wheezing Gastrointestinal Gastrointestinal: Denies abdominal pain, Denies change in bowel habits, Denies diarrhea, Denies nausea and Denies vomiting Musculoskeletal Musculoskeletal: Denies neck pain and Denies numbness Integumentary/Breasts Skin/Breast: Denies pruritus, Denies erythema, Denies rash and Denies wounds Neurologic Neurologic: Denies behavioral changes, Denies confusion, Denies dizziness, Denies frequent falls, Denies loss of vision, Denies numbness and Denies weakness Psychiatric Psychiatric: Denies anxiety, Denies behavioral changes, Denies confusion, Denies depression, Denies homicidal ideation and Denies suicidal ideation Endocrine Endocrine: Denies fatigue, Denies flushing and Denies palpitations Hematologic/Lymphatic Hematologic/Lymphatic: Denies easy bruising Allergic/Immunologic Allergic/Immunologic: Denies urticaria, Denies throat swelling and Denies wheezing Patient History Medical History 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) Cataracts, bilateral (~2017) Cellulitis Depression Diabetes (~1988) Hepatitis (~1966) HLD (hyperlipidemia) Hypertension Leishmaniasis (~2015) Microalbuminuria Peripheral neuropathy Psoriasis (~1968) Serous otitis media UTI (urinary tract infection) (02/13/19) Vertigo (~2017) Surgical History Anesthesia History of angioplasty (~1985) History of laminectomy Hx of appendectomy Hx of cholecystectomy S/P CABG (coronary artery bypass graft) (~1985) Family History Father Cancer Mother Heart disease Grandfather Heart disease Grandmother Heart disease Grandfather Heart disease Grandmother Heart disease Social History household members: spouse Smoking Status: Former smoker alcohol intake: current substance use type: does not use Smoking Status: Former smoker alcohol intake frequency: a few times a month Substance Use Type: does not use Exam Narrative Exam Narrative: GENERAL: [75] year old patient appears stated age. Well- developed patient, in mild distress. HEAD: Atraumatic. Normocephalic. EYES: Pupils equal round and reactive. Extraocular motions intact. No scleral icterus. No injection or drainage. ENT: Nose without bleeding, purulent drainage. Throat without erythema, tonsillar hypertrophy or exudate. Airway patent. NECK: Trachea midline. Non tender CARDIOVASCULAR: Regular rate and rhythm without murmurs, gallops, or rubs. RESPIRATORY: Clear to auscultation. Breath sounds equal bilaterally. No wheezes, rales, or rhonchi. GASTROINTESTINAL: Abdomen soft, non-tender, nondistended. EXTREMITIES: No edema or joint tenderness. BACK: Nontender without deformity or crepitance. No flank tenderness. NEURO: AOx3. SKIN: No rash or erythema of visible areas Initial Vital Signs Initial Vital Signs: Vital Signs Temperature 96.8 F L 11/17/20 11:08 Pulse Rate 82 11/17/20 11:08 Respiratory Rate 18 11/17/20 11:08 Blood Pressure 139/79 11/17/20 11:08 Pulse Oximetry 93 11/17/20 11:08 Course Orders Ordered: ED Orders 11/17/20 11:09 XR chest 2V Stat 11/17/20 11:14 Complete Blood Count AUTO DIFF Stat Comprehensive Metabolic Panel Stat D Dimer Stat NT-proBNP (BNP-Adult 18+) Stat Procalcitonin Stat Troponin & CK Cardiac Panel Stat 11/17/20 11:46 CT angio chest PE protocol Stat Discontinued Medications Diphenhydramine HCl (Diphenhydramine 50 Mg/Ml Vial) 25 mg IV NOW ONE Stop: 11/17/20 11:36 Last Admin: 11/17/20 11:49 Dose: 25 mg Documented by: ADALID Sodium Chloride (Normal Saline 0.9%) 1,000 mls @ 125 mls/hr IV CONT YOANDY Last Infusion: 11/17/20 13:34 Dose: 125 mls/hr Documented by: Admin: 11/17/20 11:32 Dose: 125 mls/hr Documented by: ADALID Famotidine (Pepcid) 20 mg in 50 mls @ 200 mls/hr IV NOW ONE Stop: 11/17/20 11:51 Last Infusion: 11/17/20 12:09 Dose: 0 mls/hr Documented by: Admin: 11/17/20 11:50 Dose: 200 mls/hr Documented by: ADALID Methylprednisolone (Methylprednisolone 125 Mg/2 Ml Vial) 125 mg IV NOW ONE Stop: 11/17/20 11:36 Last Admin: 11/17/20 11:50 Dose: 125 mg Documented by: ADALID Vital Signs Vital signs: Vital Signs - 8 hr 11/17/20 11:08 11/17/20 12:38 11/17/20 12:40 Temperature 96.8 F L Pulse Rate 82 85 83 Respiratory Rate 18 Blood Pressure 139/79 184/88 H Pulse Oximetry 93 92 94 11/17/20 13:00 11/17/20 13:30 11/17/20 13:31 Temperature Pulse Rate 76 82 Respiratory Rate 27 H 28 H Blood Pressure 151/84 H 181/104 H Pulse Oximetry 97 96 97 MDM - SOB/Dyspnea Lab Data Result diagrams: 11/17/20 11:14 11/17/20 11:14 Labs: Lab Results 11/17/20 11/17/20 11/17/20 Range/Units 11:14 11:14 11:14 WBC 8.6 (4.5-11.0) X10^3/uL RBC 4.21 L (4.5-5.9) X10^6/uL Hgb 13.1 L (13.5-17.5) g/dL Hct 38.8 L (41-53) % MCV 92.2 (80-100) fL MCH 31.1 (26-34) PG MCHC 33.7 (30-36) % RDW 14.3 (11.6-14.8) % Plt Count 292 (150-400) X10^3/uL Neut % (Auto) 72.6 (50-75) % Lymph % (Auto) 13.9 L (25-40) % [place] % (Auto) 9.9 (3-14) % Eos % (Auto) 3.1 (2-4) % Baso % (Auto) 0.5 (0-2) % Neut # (Auto) 6300 (4132-7153) /uL Lymph # (Auto) 1200 (9147-5007) /uL [place] # (Auto) 900 (0-900) /uL Eos # (Auto) 300 (0-450) /uL Baso # (Auto) 0 (0-100) /uL D-Dimer 710 H (<230) ng/mL Sodium 139 (137-145) mmol/L Potassium 4.2 (3.4-5.1) mmol/L Chloride 101 (98-107) mmol/L Carbon Dioxide 31 (22-32) mmol/L BUN 24 H (9-20) mg/dL Creatinine 0.76 (0.66-1.25) mg/dL Estimated GFR > 60.0 (>60) mL/min BUN/Creatinine Ratio 31.6 H (6-22) Glucose 188 H (80-110) mg/dL Calcium 8.9 (8.4-10.2) mg/dL Total Bilirubin 0.9 (0.2-1.3) mg/dL AST 27 (17-59) IU/L ALT 22 (<50) IU/L Alkaline Phosphatase 72 (38-126) U/L Total Creatine Kinase (55-170) U/L CK-MB (CK-2) CK-MB (CK-2) Rel Index Troponin I (0.01-0.034) ng/mL NT-Pro-B Natriuret Pep 686 H (<450) pg/mL Total Protein 7.3 (6.3-8.2) g/dL Albumin 4.0 (3.5-5.0) g/dL Globulin 3.3 (1.7-4.1) g/dL Albumin/Globulin Ratio 1.2 (1.0-2.8) Procalcitonin 0.22 (<0.5) ng/mL 11/17/20 Range/Units 11:14 WBC (4.5-11.0) X10^3/uL RBC (4.5-5.9) X10^6/uL Hgb (13.5-17.5) g/dL Hct (41-53) % MCV (80-100) fL MCH (26-34) PG MCHC (30-36) % RDW (11.6-14.8) % Plt Count (150-400) X10^3/uL Neut % (Auto) (50-75) % Lymph % (Auto) (25-40) % [place] % (Auto) (3-14) % Eos % (Auto) (2-4) % Baso % (Auto) (0-2) % Neut # (Auto) (2050-7529) /uL Lymph # (Auto) (6389-4379) /uL [place] # (Auto) (0-900) /uL Eos # (Auto) (0-450) /uL Baso # (Auto) (0-100) /uL D-Dimer (<230) ng/mL Sodium (137-145) mmol/L Potassium (3.4-5.1) mmol/L Chloride (98-107) mmol/L Carbon Dioxide (22-32) mmol/L BUN (9-20) mg/dL Creatinine (0.66-1.25) mg/dL Estimated GFR (>60) mL/min BUN/Creatinine Ratio (6-22) Glucose (80-110) mg/dL Calcium (8.4-10.2) mg/dL Total Bilirubin (0.2-1.3) mg/dL AST (17-59) IU/L ALT (<50) IU/L Alkaline Phosphatase (38-126) U/L Total Creatine Kinase 89 (55-170) U/L CK-MB (CK-2) TNP CK-MB (CK-2) Rel Index TNP Troponin I 0.058 H (0.01-0.034) ng/mL NT-Pro-B Natriuret Pep (<450) pg/mL Total Protein (6.3-8.2) g/dL Albumin (3.5-5.0) g/dL Globulin (1.7-4.1) g/dL Albumin/Globulin Ratio (1.0-2.8) Procalcitonin (<0.5) ng/mL MDM Narrative Medical decision making narrative: Multiple etiologies for patient's symptoms considered including: [Infectious versus traumatic from hacking cough versus pulmonary embolism versus other] Patient's symptoms improved over duration of stay with above-stated therapies. Findings and discharge diagnosis discussed with patient/family followed by verbalization of understanding Return precautions discussed with patient/family whom verbalize understanding. Discharge Plan Departure Patient Disposition: Home Clinical Impression: Atypical pneumonia Instructions: DI for Atypical Pneumonia Activity Restrictions/Additional Instructions: *You have been diagnosed with [atypical pneumonia] *What to do: *Please continue to take your regular medications as directed. [x ] New medication prescriptions sent to your pharmacy: [ ] [ ] New medication written as a paper prescription [ ] No new medications given *Please follow up with your primary care provider in 2-3 days, call for an appointment. Let them know you were seen in the Emergency Department and that we ask that you be seen in follow up. We will electronically transmit a record of today's note if your PCP is in our system *If you do not have a primary care provider please contact the [facility] Resource line at [phone]. They will ask some questions about your medical history and help get you set up with a doctor in the community. *Return to Emergency Department if you should have any new, worsening or concerning symptoms, such as [fever greater than 101 F, shaking chills, worsen ing pain, persistent vomiting or other bothersome symptoms] Prescriptions: New doxycycline hyclate 100 mg tablet 100 mg PO BID Qty: 20 RF: 0 No Action aspirin 81 MG tablet,delayed release (DR/EC) 81 mg PO QDAY Qty: 0 RF: 0 (DME) BD Ultra Fine [place] 8MM Qty: 100 RF: 3 glipizide 5 mg tablet 5 mg PO DAILY Qty: 90 RF: 1 Lantus Solostar U-100 Insulin 100 unit/mL (3 mL) insulin pen 60 unit SUBCUT BID Qty: 45 RF: 3 metformin 1,000 mg tablet 1,000 mg PO BID Qty: 180 RF: 0 candesartan 4 mg tablet 2 mg PO DAILY Qty: 45 RF: 3 citalopram 20 mg tablet 20 mg PO DAILY Qty: 90 RF: 3 propranolol 40 mg tablet 40 mg PO BID Qty: 180 RF: 3 tamsulosin [Flomax] 0.4 mg capsule 0.4 mg PO QDAY Qty: 90 RF: 3 tolterodine 2 mg capsule,extended release 24hr 2 mg PO DAILY Qty: 90 RF: 3 atorvastatin [Lipitor] 40 mg tablet 40 mg PO QPM Qty: 90 RF: 3 clobetasol 0.05 % cream 1 applic topical BID PRN (Reason: Psoriasis) Qty: 45 RF: 5 melatonin 10 mg Tablet 10 mg PO BEDTIME RF: 0 Referrals: Ravi Laughlin MD [Primary Care Provider] -
[2020-11-17 11:23] LABS: Add Manual Diff / Slide Review NO; Basophils Absolute Auto 0 /uL (0-100); Basophils Percent Auto 0.5 % (0-2); Eosinophils Absolute Auto 300 /uL (0-450); Eosinophils Percent Auto 3.1 % (2-4); Hematocrit 38.8 % (41-53); Hemoglobin 13.1 g/dL (13.5-17.5); Lymphocytes Absolute Auto 1200 /uL (1100-4500); Lymphocytes Percent Auto 13.9 % (25-40); Mean Corpuscular HGB Conc 33.7 % (30-36); Mean Corpuscular Hemoglobin 31.1 PG (26-34); Mean Corpuscular Volume 92.2 fL (80-100); Monocytes Absolute Auto 900 /uL (0-900); Monocytes Percent Auto 9.9 % (3-14); Neutrophils Absolute Auto 6300 /uL (1500-7000); Neutrophils Percent Auto 72.6 % (50-75); Platelet Count 292 X10^3/uL (150-400); Red Blood Cell Count 4.21 X10^6/uL (4.5-5.9); Red Cell Distribution Width 14.3 % (11.6-14.8); White Blood Cell Count 8.6 X10^3/uL (4.5-11.0)
[2020-11-17] MEDS: SODIUM CHLORIDE 0.9% 1,000 ML 125 ML IV (11:32)
[2020-11-17 11:33] LABS: D Dimer 710 ng/mL (<230)
[2020-11-17 11:35] LABS: Alanine Aminotransferase 22 IU/L (<50); Albumin Globulin Ratio 1.2 (1.0-2.8); Alkaline Phosphatase 72 U/L (38-126); Aspartate Aminotransferase 27 IU/L (17-59); BUN Creatinine Ratio 31.6 (6-22); Bilirubin Total 0.9 mg/dL (0.2-1.3); Blood Urea Nitrogen 24 mg/dL (9-20); Calcium 8.9 mg/dL (8.4-10.2); Carbon Dioxide 31 mmol/L (22-32); Chloride 101 mmol/L (98-107); Creatine Kinase 89 U/L (55-170); Estimated Glomerular Filt Rate > 60.0 mL/min (>60); Globulin 3.3 g/dL (1.7-4.1); Glucose 188 mg/dL (80-110); HEMOLYSIS < 15 (0-50); Potassium 4.2 mmol/L (3.4-5.1); Sodium 139 mmol/L (137-145); Total Protein 7.3 g/dL (6.3-8.2)
[2020-11-17 11:44] LABS: NT-proBNP (BNP-Adult 18+) 686 pg/mL (<450)
[2020-11-17 11:46] LABS: Troponin I 0.058 ng/mL (0.01-0.034)
--- NOTE | 2020-11-17 11:46 | DI.CT.S_ITS ---
PROCEDURE: CT ANGIO CHEST PE PROTOCOL INDICATIONS: cough, hemoptysis, smoker, hypoxemia, DDimer TECHNIQUE: After the administration of intravenous contrast, 2 mm thick sections acquired from the pulmonary apices to the posterior costophrenic angles. 3-dimensional maximum intensity projection (MIP) coronal and sagittal reformats were then acquired through the thorax. For radiation dose reduction, the following was used: automated exposure control, adjustment of mA and/or kV according to patient size. COMPARISON: None. FINDINGS: Image quality: Excellent. Pulmonary arteries: Pulmonary arteries are normal in size, and demonstrate no intraluminal filling defects to suggest central pulmonary embolism. Lungs and pleura: Patchy ill-defined nodular ground-glass and consolidative opacities noted in the posteromedial aspect of the inferior right upper lobe and medial basilar segment of the right lower lobe. Similar findings are more pronounced in the posterior, dependent portions of the left lower lobe as well as minimally in the posterior aspect of the left upper lobe. There is minimal perihilar airway thickening. Trace left pleural effusion. No pneumothorax. No septal thickening or nodularity. Central and peripheral airways are patent. Mediastinum: Heart size is normal, without pericardial effusion. No mediastinal or hilar adenopathy by size criteria; however, there are numerous mediastinal lymph nodes more notable for number rather than size and likely reactive in etiology. Thoracic aorta is normal in caliber and enhancement. Esophagus is normal in caliber, without hiatal hernia. Mild scattered atherosclerotic calcifications of the coronary arteries are noted. Postsurgical changes from prior coronary revascularization procedure. Bones and chest wall: No suspicious bony lesions. Ribs and thoracic spine appear intact throughout. Thyroid gland is unremarkable. No axillary or supraclavicular adenopathy. Status post median sternotomy. Abdomen: Visualized upper abdominal solid organs appear normal in the early arterial phase of enhancement. Status post cholecystectomy. IMPRESSION: 1. No acute pulmonary emboli. No acute right-sided heart strain. 2. Scattered dependent ill-defined ground-glass and nodular consolidation involving the bilateral upper lobe and bilateral lower lobes, most pronounced in the posterior left lower lobe. There is associated perihilar airway thickening and trace left pleural effusion. Findings are likely related to an infectious or inflammatory process with viral or atypical pneumonia favored. Recommend short interval follow-up CT in 3 months to document stability versus resolution. 3. Atherosclerosis. 4. Status post cholecystectomy. Dictated by: Anand Garcia M.D. on 11/17/2020 at 12:45 Approved by: Anand Garcia M.D. on 11/17/2020 at 12:51
[2020-11-17] MEDS: diphenhydrAMINE 50 MG/ML VIAL 25 MG IV (11:49)
[2020-11-17] MEDS: methylPREDNISolone 125 MG/2 ML VIAL IV (11:50)
[2020-11-17] MEDS: FAMOTIDINE 20 MG/50 ML PIGGYBACK 200 MG IV (11:50)
[2020-11-17 11:51] LABS: Procalcitonin 0.22 ng/mL (<0.5)
--- NOTE | 2020-11-17 12:36 | PC.NURSE ---
Stanislaw had one episode of vomiting immediately after injection of IV contrast. Denies SOB or tightness. Increase in dry persistent cough. Placed on 2LNC for 92% oxygen saturation.
[2020-11-17 12:38] VITALS: PULSE 85; O2SAT 92
[2020-11-17 12:40] VITALS: BP 184/88; PULSE 83; O2SAT 94
[2020-11-17 13:00] VITALS: BP 151/84; PULSE 76; RESP 27; O2SAT 97
[2020-11-17 13:30] VITALS: PULSE 82; RESP 28; O2SAT 96
[2020-11-17 13:31] VITALS: BP 181/104; O2SAT 97
== END 2020-11-17 13:43 | disposition home or self-care (01) ==
PROVIDERS: Emergency Provider Emergency Medicine; Family Provider Student in an Organized Health Care Education/Training Program; PCP Student in an Organized Health Care Education/Training Program
DX: J18.9 Pneumonia, unspecified organism (principal); R04.2 Hemoptysis; R79.89 Other specified abnormal findings of blood chemistry
CPT/HCPCS: 36415; 71046; 71275; 80053; 82550; 83880; 84145; 84484; 85025; 85379; 96361; 96365; 96375; 99285; J1200; J2930; Q9967

== ENCOUNTER → 2021-05-18 10:01 | Outpatient (CLI) | payer MEDICARE, OTHER, SELFPAY ==
[2019-05-05 20:05] VITALS: BMI 35.2
[2021-05-18 12:26] LABS: BUN Creatinine Ratio 24.1 (6-22); Blood Urea Nitrogen 21 mg/dL (9-20); Estimated Glomerular Filt Rate > 60.0 mL/min (>60)
[2021-05-18 12:59] LABS: Hemoglobin A1C% w Est Avg Glu 7.3 % (4.0-6.0)
== END ==
PROVIDERS: Family Provider Student in an Organized Health Care Education/Training Program; PCP Student in an Organized Health Care Education/Training Program; Referring Provider Student in an Organized Health Care Education/Training Program; Visit Provider Student in an Organized Health Care Education/Training Program
DX: E11.42 Type 2 diabetes mellitus with diabetic polyneuropathy (principal); Z79.4 Long term (current) use of insulin
CPT/HCPCS: 36415; 82565; 83036; 84520

== ENCOUNTER 2021-07-03 08:46 | Emergency (ER) | payer MEDICARE, OTHER, SELFPAY ==
[2019-05-05 20:05] VITALS: BMI 35.2
[2021-07-03] VITALS (8 sets, daily range): BP systolic 142–176; BP diastolic 70–92; PULSE 98–111; RESP 18; TEMP 35.9; O2SAT 95–97; BMI 34.8
--- NOTE | 2021-07-03 09:20 | ED.EXTPRO ---
HPI - Extremity Problem General Chief complaint: Extremity Problem,Nontraumatic Stated complaint: Left arm pain Time Seen by Provider: 07/03/21 08:48 Source: patient Mode of arrival: Ambulatory History of Present Illness HPI Narrative: Gentleman with a history of hyperlipidemia, hypertension, diabetes, essential tremor, depression and today presents with a hot red swollen olecranon on the left side. He had noticed a bit of tenderness over the last 2-3 days in the last 24 hours it has gotten increasingly swollen increasingly red, warm and now has pain radiating up the entire arm. He does not describe specific fevers. He notes that he chronically has poor balance and that has not been changed. No cough, dyspnea, orthopnea, lower extremity edema, palpitations, chest pain. Related Data Home Medications Medication Instructions Recorded Confirmed aspirin 81 mg tablet,delayed 81 mg PO QDAY #0 01/09/17 05/26/20 release melatonin 10 mg tablet 10 mg PO BEDTIME 04/25/19 05/26/20 alpha lipoic acid 200 mg capsule 200 mg PO TID 11/22/20 gabapentin 100 mg capsule 200 mg PO BID cap 04/13/21 04/13/21 Previous Rx's Medication Instructions Recorded BD Ultra Fine [place] #100 each 10/13/19 tolterodine 2 mg capsule,extended 2 mg PO DAILY #90 cap 05/26/20 release 24 hr doxycycline hyclate 100 mg tablet 100 mg PO BID #20 tab 11/17/20 candesartan 4 mg tablet See Rx Instructions .ROUTE 03/10/21 .COMPLEX #90 tab glipizide 5 mg tablet 5 mg PO DAILY #90 tab 04/13/21 insulin glargine 100 unit/mL (3 60 unit (0.6 mL) SUBCUT BID #45 ml 04/13/21 mL) subcutaneous pen (Lantus Solostar U-100 Insulin) metformin 1,000 mg tablet 1,000 mg PO BID #180 tab 04/13/21 dulaglutide 1.5 mg/0.5 mL 1.5 mg (0.5 mL) SUBCUT QWEEK #2 ml 06/07/21 subcutaneous pen injector atorvastatin 40 mg tablet (Lipitor) 40 mg PO QPM #90 tab 06/13/21 propranolol 40 mg tablet 40 mg PO BID #180 tab 06/13/21 tamsulosin 0.4 mg capsule (Flomax) 0.4 mg PO QDAY #90 cap 06/13/21 clobetasol 0.05 % topical cream 1 applic TOPICAL BID PRN #45 g 06/14/21 citalopram 20 mg tablet 20 mg PO DAILY #90 tab 06/21/21 cephalexin 500 mg capsule 500 mg PO TID 7 Days #21 cap 07/03/21 oxycodone-acetaminophen 5 mg-325 1 tab PO Q6H PRN #12 tab 07/03/21 mg tablet Allergies Allergy/AdvReac Type Severity Reaction Status Date / Time Iodinated Contrast Media Allergy Severe ANAPHALAXIS Verified 11/22/20 15:09 [IODINATED CONTRAST- ORAL AND IV DYE] levofloxacin [LEVOFLOXACIN] Allergy Unknown Hives Verified 11/22/20 15:09 lisinopril [LISINOPRIL] Allergy Unknown COUGH Verified 11/22/20 15:09 Review of Systems Review of Systems Narrative: Remainder of complete review of systems is otherwise unremarkable except for that included in the HPI. 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) Anesthesia History of angioplasty (~1985) History of laminectomy Hx of appendectomy Hx of cholecystectomy S/P CABG (coronary artery bypass graft) (~1985) Family History Father Cancer Mother Heart disease Grandfather Heart disease Grandmother Heart disease Grandfather Heart disease Grandmother Heart disease Social History household members: spouse Smoking Status: Former smoker alcohol intake: current substance use type: does not use Smoking Status: Former smoker alcohol intake frequency: a few times a month Substance Use Type: does not use Exam Narrative Exam Narrative: General: Healthy appearing, in no acute distress. Able to give a complete and coherent history. Well-nourished well-developed HEENT: Moist mucous membranes, normal sclera with reactive pupils, Neck: No JVD, supple Respiratory: Lungs are clear to auscultation, no wheezing no rales no rhonchi. Full and symmetrical air movement Cardiac: Tachycardic with Regular rate and rhythm no murmurs no bruits Abdomen: Soft, nontender, good bowel tones, no flank pain Skin: Warm and dry, no rashes Neurologic: Grossly neurologically intact with no obvious asymmetries or abnormalities Extremities: Left olecranon bursa full, tense, red, warm with mild erythema extending both distal and proximally from the elbow. He is unable to extend the elbow fully due to pain. Psych: Cooperative, appropriate insight and affect Initial Vital Signs Initial Vital Signs: Vital Signs Temperature 96.6 F L 07/03/21 09:00 Pulse Rate 111 H 07/03/21 09:00 Respiratory Rate 18 07/03/21 09:00 Blood Pressure 176/83 H 07/03/21 09:00 Pulse Oximetry 97 07/03/21 09:00 Course Orders Ordered: ED Orders 07/03/21 09:49 Complete Blood Count AUTO DIFF Stat Comprehensive Metabolic Panel Stat Lactate (Lactic Acid) Stat Uric Acid Stat 07/03/21 10:10 Crystals Body Fluid - IN-HOUSE Stat 07/03/21 10:30 Blood Culture Stat Discontinued Medications Oxycodone/Acetaminophen (Oxycodone/Acetaminophen 5/325 Tablet) 1 tab PO NOW ONE Stop: 07/03/21 10:45 Vital Signs Vital signs: Vital Signs - 8 hr 07/03/21 09:00 07/03/21 10:01 07/03/21 10:02 Temperature 96.6 F L Pulse Rate 111 H 104 H 104 H Respiratory Rate 18 Blood Pressure 176/83 H 155/79 H Pulse Oximetry 97 96 96 07/03/21 10:30 07/03/21 10:31 Temperature Pulse Rate 102 H 104 H Respiratory Rate Blood Pressure 148/70 H Pulse Oximetry 96 96 MDM - Extremity (Nontraumatic) Lab Data Result diagrams: 07/03/21 09:49 07/03/21 09:49 Labs: Lab Results 07/03/21 07/03/21 07/03/21 Range/Units 09:49 09:49 09:49 WBC 10.8 (4.5-11.0) X10^3/uL RBC 4.20 L (4.5-5.9) X10^6/uL Hgb 13.2 L (13.5-17.5) g/dL Hct 39.1 L (41-53) % MCV 93.2 (80-100) fL MCH 31.6 (26-34) PG MCHC 33.9 (30-36) % RDW 13.4 (11.6-14.8) % Plt Count 243 (150-400) X10^3/uL Neut % (Auto) 77.9 H (50-75) % Lymph % (Auto) 9.1 L (25-40) % [place] % (Auto) 11.6 (3-14) % Eos % (Auto) 0.9 L (2-4) % Baso % (Auto) 0.5 (0-2) % Neut # (Auto) 8400 H (7224-0868) /uL Lymph # (Auto) 1000 L (0519-8476) /uL [place] # (Auto) 1200 H (0-900) /uL Eos # (Auto) 100 (0-450) /uL Baso # (Auto) 100 (0-100) /uL Sodium 138 (137-145) mmol/L Potassium 4.8 (3.4-5.1) mmol/L Chloride 101 (98-107) mmol/L Carbon Dioxide 32 (22-32) mmol/L BUN 23 H (9-20) mg/dL Creatinine 0.90 (0.66-1.25) mg/dL Estimated GFR > 60.0 (>60) mL/min BUN/Creatinine Ratio 25.6 H (6-22) Glucose 188 H (80-110) mg/dL Lactate (0.7-2.1) mmol/L Uric Acid 4.7 (3.5-8.5) mg/dL Calcium 9.0 (8.4-10.2) mg/dL Total Bilirubin 1.1 (0.2-1.3) mg/dL AST 20 (17-59) IU/L ALT 19 (<50) IU/L Alkaline Phosphatase 68 (38-126) U/L Total Protein 7.4 (6.3-8.2) g/dL Albumin 4.3 (3.5-5.0) g/dL Globulin 3.1 (1.7-4.1) g/dL Albumin/Globulin Ratio 1.4 (1.0-2.8) Fluid Crystals (NONE) 07/03/21 07/03/21 Range/Units 09:49 10:10 WBC (4.5-11.0) X10^3/uL RBC (4.5-5.9) X10^6/uL Hgb (13.5-17.5) g/dL Hct (41-53) % MCV (80-100) fL MCH (26-34) PG MCHC (30-36) % RDW (11.6-14.8) % Plt Count (150-400) X10^3/uL Neut % (Auto) (50-75) % Lymph % (Auto) (25-40) % [place] % (Auto) (3-14) % Eos % (Auto) (2-4) % Baso % (Auto) (0-2) % Neut # (Auto) (7704-1070) /uL Lymph # (Auto) (0675-4549) /uL [place] # (Auto) (0-900) /uL Eos # (Auto) (0-450) /uL Baso # (Auto) (0-100) /uL Sodium (137-145) mmol/L Potassium (3.4-5.1) mmol/L Chloride (98-107) mmol/L Carbon Dioxide (22-32) mmol/L BUN (9-20) mg/dL Creatinine (0.66-1.25) mg/dL Estimated GFR (>60) mL/min BUN/Creatinine Ratio (6-22) Glucose (80-110) mg/dL Lactate 0.9 (0.7-2.1) mmol/L Uric Acid (3.5-8.5) mg/dL Calcium (8.4-10.2) mg/dL Total Bilirubin (0.2-1.3) mg/dL AST (17-59) IU/L ALT (<50) IU/L Alkaline Phosphatase (38-126) U/L Total Protein (6.3-8.2) g/dL Albumin (3.5-5.0) g/dL Globulin (1.7-4.1) g/dL Albumin/Globulin Ratio (1.0-2.8) Fluid Crystals None present (NONE) MDM Narrative Medical decision making narrative: 75-year-old gentleman who presents with a sore left elbow that appears to be an infected olecranon bursitis. With mild erythema extending out from the bursa itself an extended workup was done. There is no evidence of uric acid crystals to suggest gout and no suggestion of larger systemic infection or sepsis. He is given a dose of ceftriaxone in the emergency department. A sterile single touch aspiration of the elbow was done for culture and will begin with oral Keflex after the ceftriaxone in the emergency department and change antibiotics if needed based on culture as returns. Will be given a brief course of Percocet to use for pain and will follow-up with his primary care physician if symptoms are not significantly improving in the next few days. I suspect that the mild psoriatic plaque over that left elbow was the source of enough dermal irritation to allow bacteria to work its way into the bursa. Discharge Plan Departure Patient Disposition: Home Clinical Impression: Olecranon bursitis of left elbow, Other infective bursitis, left elbow, Cellulitis Instructions: DI for Cellulitis -- Adult, DI for Elbow Bursitis Activity Restrictions/Additional Instructions: Thank you for coming in today You have an infected elbow bursa. This is not an elbow joint infection. The blood work was very reassuring and does not show any evidence of gout or systemic infection such as sepsis. You were given a dose of ceftriaxone in the emergency department to begin antibiotic treatment and would like you to complete an additional 7 days of oral antibiotics, cephalexin. Prescriptions were sent to [facility] in [place] If you find the redness is spreading or worsening, your developing fevers or chills or other total body symptoms, you do need to return to the emergency department If you are not significantly improved within the next 48 hours please follow-up with your primary care doctor Prescriptions: New oxycodone-acetaminophen 5-325 mg tablet 1 tab PO Q6H PRN (Reason: pain) Qty: 12 0RF cephalexin 500 mg capsule 500 mg PO TID 7 Days Qty: 21 0RF No Action aspirin 81 MG tablet,delayed release (DR/EC) 81 mg PO QDAY Qty: 0 0RF (DME) BD Ultra Fine [place] 8MM Qty: 100 3RF Rx Instructions: Use to test blood sugars daily or as directed by physcian. candesartan 4 mg tablet See Rx Instructions .ROUTE .COMPLEX Qty: 90 3RF Dose Instruction: TAKE 1/2 TABLET BY MOUTH ONCE DAILY FOR BLOOD PRESSURE Rx Instructions: TAKE 1/2 TABLET BY MOUTH ONCE DAILY FOR BLOOD PRESSURE metformin 1,000 mg tablet 1,000 mg PO BID Qty: 180 1RF dulaglutide 1.5 mg/0.5 mL pen injector 1.5 mg SUBCUT QWEEK Qty: 2 0RF propranolol 40 mg tablet 40 mg PO BID Qty: 180 1RF tamsulosin [Flomax] 0.4 mg capsule 0.4 mg PO QDAY Qty: 90 1RF atorvastatin [Lipitor] 40 mg tablet 40 mg PO QPM Qty: 90 1RF clobetasol 0.05 % cream 1 applic topical BID PRN (Reason: Psoriasis) Qty: 45 5RF citalopram 20 mg tablet 20 mg PO DAILY Qty: 90 1RF alpha lipoic acid 200 mg capsule 200 mg PO TID 0RF tolterodine 2 mg capsule,extended release 24hr 2 mg PO DAILY Qty: 90 3RF glipizide 5 mg tablet 5 mg PO DAILY Qty: 90 1RF gabapentin 100 mg capsule 200 mg PO BID 0RF Lantus Solostar U-100 Insulin 100 unit/mL (3 mL) insulin pen 60 unit SUBCUT BID Qty: 45 5RF Hold Instructions: trial of trulicity melatonin 10 mg Tablet 10 mg PO BEDTIME 0RF doxycycline hyclate 100 mg tablet 100 mg PO BID Qty: 20 0RF Referrals: Ravi Laughlin MD [Primary Care Provider] -
[2021-07-03 10:07] LABS: Add Manual Diff / Slide Review NO; Basophils Absolute Auto 100 /uL (0-100); Basophils Percent Auto 0.5 % (0-2); Eosinophils Absolute Auto 100 /uL (0-450); Eosinophils Percent Auto 0.9 % (2-4); Hematocrit 39.1 % (41-53); Hemoglobin 13.2 g/dL (13.5-17.5); Lymphocytes Absolute Auto 1000 /uL (1100-4500); Lymphocytes Percent Auto 9.1 % (25-40); Mean Corpuscular HGB Conc 33.9 % (30-36); Mean Corpuscular Hemoglobin 31.6 PG (26-34); Mean Corpuscular Volume 93.2 fL (80-100); Monocytes Absolute Auto 1200 /uL (0-900); Monocytes Percent Auto 11.6 % (3-14); Neutrophils Absolute Auto 8400 /uL (1500-7000); Neutrophils Percent Auto 77.9 % (50-75); Platelet Count 243 X10^3/uL (150-400); Red Cell Distribution Width 13.4 % (11.6-14.8); White Blood Cell Count 10.8 X10^3/uL (4.5-11.0)
[2021-07-03 10:18] LABS: Lactate (Lactic Acid) 0.9 mmol/L (0.7-2.1)
[2021-07-03 10:20] LABS: Alanine Aminotransferase 19 IU/L (<50); Albumin 4.3 g/dL (3.5-5.0); Albumin Globulin Ratio 1.4 (1.0-2.8); Alkaline Phosphatase 68 U/L (38-126); Aspartate Aminotransferase 20 IU/L (17-59); BUN Creatinine Ratio 25.6 (6-22); Bilirubin Total 1.1 mg/dL (0.2-1.3); Blood Urea Nitrogen 23 mg/dL (9-20); Carbon Dioxide 32 mmol/L (22-32); Chloride 101 mmol/L (98-107); Estimated Glomerular Filt Rate > 60.0 mL/min (>60); Globulin 3.1 g/dL (1.7-4.1); Glucose 188 mg/dL (80-110); HEMOLYSIS < 15 (0-50); Potassium 4.8 mmol/L (3.4-5.1); Sodium 138 mmol/L (137-145); Total Protein 7.4 g/dL (6.3-8.2); Uric Acid 4.7 mg/dL (3.5-8.5)
[2021-07-03 10:42] LABS: Crystals Body Fluid - IN-HOUSE NONE Present
[2021-07-03] MEDS: OXYCODONE/ACETAMINOPHEN 5/325 TABLET 1 TAB PO (11:09)
[2021-07-03] MEDS: cefTRIAXone 2,000 MG in SODIUM CHLORIDE 0.9% 100 ML 200 ML IV (11:10)
== END 2021-07-03 12:03 | disposition home or self-care (01) ==
PROVIDERS: Emergency Provider Emergency Medicine; Family Provider Student in an Organized Health Care Education/Training Program; PCP Student in an Organized Health Care Education/Training Program
DX: M71.122 Other infective bursitis, left elbow (principal); L03.114 Cellulitis of left upper limb; Z87.891 Personal history of nicotine dependence
CPT/HCPCS: 36415; 80053; 83605; 84550; 85025; 87040; 89060; 93005; 96374; 99284; J0696

== ENCOUNTER 2021-07-09 09:15 | Emergency (ER) | payer MEDICARE, OTHER, SELFPAY ==
[2019-05-05 20:05] VITALS: BMI 35.2
[2021-07-09 09:27] VITALS: BP 131/73; PULSE 115; RESP 22; TEMP 36.2; O2SAT 100; BMI 33.9
--- NOTE | 2021-07-09 09:33 | DI.RAD.S_ITS ---
PROCEDURE: XR ELBOW LT MIN 3V INDICATIONS: left elbow swelling, no better after abx. TECHNIQUE: 3 views of the elbow were acquired. COMPARISON: None. FINDINGS: Bones: No fractures or dislocations. No suspicious bony lesions. Soft tissues: Joint effusion elevates the anterior humeral fat pad. There is soft tissue swelling over the olecranon without radiopaque foreign body. IMPRESSION: 1. Soft tissue swelling noted over the olecranon probably reflects olecranon bursitis. 2. Moderate elbow joint effusion Approved by: Geovani Urena M.D. on 07/09/2021 at 10:23
[2021-07-09 10:18] LABS: Add Manual Diff / Slide Review NO; Basophils Absolute Auto 100 /uL (0-100); Basophils Percent Auto 0.7 % (0-2); Eosinophils Absolute Auto 100 /uL (0-450); Eosinophils Percent Auto 0.9 % (2-4); Hematocrit 40.7 % (41-53); Hemoglobin 13.6 g/dL (13.5-17.5); Lymphocytes Absolute Auto 1400 /uL (1100-4500); Lymphocytes Percent Auto 14.2 % (25-40); Mean Corpuscular HGB Conc 33.4 % (30-36); Mean Corpuscular Hemoglobin 31.1 PG (26-34); Mean Corpuscular Volume 93.1 fL (80-100); Monocytes Absolute Auto 1200 /uL (0-900); Neutrophils Absolute Auto 7100 /uL (1500-7000); Neutrophils Percent Auto 72.2 % (50-75); Platelet Count 387 X10^3/uL (150-400); Red Blood Cell Count 4.37 X10^6/uL (4.5-5.9); Red Cell Distribution Width 12.9 % (11.6-14.8); White Blood Cell Count 9.9 X10^3/uL (4.5-11.0)
[2021-07-09 10:22] LABS: INR 1.2 (0.9-1.3); Prothrombin Time 12.8 SECONDS (10.1-12.7)
[2021-07-09 10:25] LABS: PTT Partial Thromboplastin Tim 32 SECONDS (26.4-36.2)
[2021-07-09 10:28] LABS: Alanine Aminotransferase 45 IU/L (<50); Albumin 4.2 g/dL (3.5-5.0); Albumin Globulin Ratio 1.2 (1.0-2.8); Alkaline Phosphatase 97 U/L (38-126); Aspartate Aminotransferase 35 IU/L (17-59); BUN Creatinine Ratio 24.2 (6-22); Blood Urea Nitrogen 22 mg/dL (9-20); Calcium 9.2 mg/dL (8.4-10.2); Carbon Dioxide 27 mmol/L (22-32); Chloride 98 mmol/L (98-107); Estimated Glomerular Filt Rate > 60.0 mL/min (>60); Globulin 3.4 g/dL (1.7-4.1); Glucose 352 mg/dL (80-110); HEMOLYSIS 38 (0-50); Lipase 77 U/L (23-300); Potassium 4.8 mmol/L (3.4-5.1); Sodium 133 mmol/L (137-145); Total Protein 7.6 g/dL (6.3-8.2)
[2021-07-09 10:29] LABS: Lactate (Lactic Acid) 2.3 mmol/L (0.7-2.1)
[2021-07-09 10:44] LABS: Procalcitonin 0.08 ng/mL (<0.5)
[2021-07-09 10:52] LABS: Erythrocyte Sedimentation Rate 60 MM/HR (0-15)
[2021-07-09 10:53] LABS: C-Reactive Protein Quant 11.2 mg/dL (<1.0)
--- NOTE | 2021-07-09 11:05 | ED_ITS ---
HPI - Skin/Abscess/Foreign Bdy General Chief complaint: Skin/Abscess/Foreign Body Stated complaint: LT ELBOW PAIN INFECTION Time Seen by Provider: 07/09/21 10:21 Source: patient Mode of arrival: Ambulatory Limitations: no limitations History of Present Illness HPI narrative: 75-year-old gentleman with a history of hypertension hyperlipidemia diabetes presents with left elbow pain for which he was seen on the . That point he was diagnosed with an olecranon bursitis that was infected with developing cellulitis. Workup did not suggest sepsis or gout at that time. The bursa was aspirated and crystals were not appreciated but apparently a culture and Gram stain was not completed. Patient finished his course of Keflex and used a brief course of Percocet and returns today complaining that he still has symptoms. He notes that his elbow is still sore and is concerned that it is still red. He has had no fevers, cough no vomiting no diarrhea. Area is dramatically improved from presentation on the . Related Data Home Medications Medication Instructions Recorded Confirmed aspirin 81 mg tablet,delayed 81 mg PO QDAY #0 01/09/17 05/26/20 release melatonin 10 mg tablet 10 mg PO BEDTIME 04/25/19 05/26/20 alpha lipoic acid 200 mg capsule 200 mg PO TID 11/22/20 gabapentin 100 mg capsule 200 mg PO BID cap 04/13/21 04/13/21 Previous Rx's Medication Instructions Recorded BD Ultra Fine [place] #100 each 10/13/19 tolterodine 2 mg capsule,extended 2 mg PO DAILY #90 cap 05/26/20 release 24 hr doxycycline hyclate 100 mg tablet 100 mg PO BID #20 tab 11/17/20 candesartan 4 mg tablet See Rx Instructions .ROUTE 03/10/21 .COMPLEX #90 tab glipizide 5 mg tablet 5 mg PO DAILY #90 tab 04/13/21 insulin glargine 100 unit/mL (3 60 unit (0.6 mL) SUBCUT BID #45 ml 04/13/21 mL) subcutaneous pen (Lantus Solostar U-100 Insulin) metformin 1,000 mg tablet 1,000 mg PO BID #180 tab 04/13/21 atorvastatin 40 mg tablet (Lipitor) 40 mg PO QPM #90 tab 06/13/21 propranolol 40 mg tablet 40 mg PO BID #180 tab 06/13/21 tamsulosin 0.4 mg capsule (Flomax) 0.4 mg PO QDAY #90 cap 06/13/21 clobetasol 0.05 % topical cream 1 applic TOPICAL BID PRN #45 g 06/14/21 citalopram 20 mg tablet 20 mg PO DAILY #90 tab 06/21/21 oxycodone-acetaminophen 5 mg-325 1 tab PO Q6H PRN #12 tab 07/03/21 mg tablet dulaglutide 3 mg/0.5 mL 3 mg (0.5 mL) SUBCUT QWEEK #6 ml 07/04/21 subcutaneous pen injector cephalexin 500 mg capsule 500 mg PO TID #21 cap 07/09/21 oxycodone-acetaminophen 5 mg-325 1 tab PO Q6H PRN #12 tab 07/09/21 mg tablet Allergies Allergy/AdvReac Type Severity Reaction Status Date / Time Iodinated Contrast Media Allergy Severe ANAPHALAXIS Verified 07/09/21 09:31 [IODINATED CONTRAST- ORAL AND IV DYE] levofloxacin [LEVOFLOXACIN] Allergy Unknown Hives Verified 07/09/21 09:31 lisinopril [LISINOPRIL] Allergy Unknown COUGH Verified 07/09/21 09:31 Review of Systems Review of Systems Narrative: Remainder of complete review of systems is otherwise unremarkable except for that included in the HPI. 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) Anesthesia History of angioplasty (~1985) History of laminectomy Hx of appendectomy Hx of cholecystectomy S/P CABG (coronary artery bypass graft) (~1985) Family History Father Cancer Mother Heart disease Grandfather Heart disease Grandmother Heart disease Grandfather Heart disease Grandmother Heart disease Social History household members: spouse Smoking Status: Former smoker alcohol intake: current substance use type: does not use Smoking Status: Former smoker alcohol intake frequency: a few times a month Substance Use Type: does not use Exam Initial Vital Signs Initial Vital Signs: Vital Signs Temperature 97.1 F L 07/09/21 09:27 Pulse Rate 115 H 07/09/21 09:27 Respiratory Rate 22 07/09/21 09:27 Blood Pressure 131/73 07/09/21 09:27 Pulse Oximetry 100 07/09/21 09:27 General: Alert appropriate in no acute distress Respiratory: Able to speak in full sentences, no obvious respiratory distress Skin: No obvious rashes, warm and dry Neurologic: Grossly intact no obvious asymmetries or abnormalities Psych: appropriate insight and affect, cooperative Extremity: Left olecranon bursa slightly erythematous now with some peeling skin. Significantly improved from previously, minimally fluctuant. No surrounding cellulitis. The peeling skin is consistent with healing after the significant inflammation and dramatically enlarged bursa prior to aspiration on the . He is able to freely move the elbow can extend almost completely and appears much more comfortable than with initial presentation on the . Course Orders Ordered: ED Orders 07/09/21 09:33 XR elbow LT min 3V Stat EKG-12 Lead Stat RT Consult Eval and Treat NOW 07/09/21 10:00 C-Reactive Protein Quant Stat Complete Blood Count AUTO DIFF Stat Comprehensive Metabolic Panel Stat Erythrocyte Sedimentation Rate Stat Lactate (Lactic Acid) Stat Lipase Stat Partial Thromboplastin Time Stat Procalcitonin Stat Prothrombin Time INR Stat Uric Acid Stat 07/09/21 10:38 Blood Culture Stat Discontinued Medications Sodium Chloride (Normal Saline 0.9%) 1,000 mls @ 1,000 mls/hr IV BOLUS ONE Stop: 07/09/21 10:31 Last Admin: 07/09/21 09:36 Dose: Not Given Documented by: ROSEMARY Ceftriaxone Sodium 1,000 mg/ (Sodium Chloride) 100 mls @ 200 mls/hr IV NOW ONE Stop: 07/09/21 11:09 Vital Signs Vital signs: Vital Signs - 8 hr 07/09/21 09:27 Temperature 97.1 F L Pulse Rate 115 H Respiratory Rate 22 Blood Pressure 131/73 Pulse Oximetry 100 MDM - Skin/Abscess/Foreign Bdy Lab Data Result diagrams: 07/09/21 10:00 07/09/21 10:00 Labs: Lab Results 07/09/21 07/09/21 07/09/21 Range/Units 10:00 10:00 10:00 WBC 9.9 (4.5-11.0) X10^3/uL RBC 4.37 L (4.5-5.9) X10^6/uL Hgb 13.6 (13.5-17.5) g/dL Hct 40.7 L (41-53) % MCV 93.1 (80-100) fL MCH 31.1 (26-34) PG MCHC 33.4 (30-36) % RDW 12.9 (11.6-14.8) % Plt Count 387 (150-400) X10^3/uL Neut % (Auto) 72.2 (50-75) % Lymph % (Auto) 14.2 L (25-40) % [place] % (Auto) 12.0 (3-14) % Eos % (Auto) 0.9 L (2-4) % Baso % (Auto) 0.7 (0-2) % Neut # (Auto) 7100 H (4839-6384) /uL Lymph # (Auto) 1400 (5184-7795) /uL [place] # (Auto) 1200 H (0-900) /uL Eos # (Auto) 100 (0-450) /uL Baso # (Auto) 100 (0-100) /uL ESR (0-15) MM/HR PT 12.8 H (10.1-12.7) SECONDS INR 1.2 (0.9-1.3) APTT 32 (26.4-36.2) SECONDS Sodium 133 L (137-145) mmol/L Potassium 4.8 (3.4-5.1) mmol/L Chloride 98 (98-107) mmol/L Carbon Dioxide 27 (22-32) mmol/L BUN 22 H (9-20) mg/dL Creatinine 0.91 (0.66-1.25) mg/dL Estimated GFR > 60.0 (>60) mL/min BUN/Creatinine Ratio 24.2 H (6-22) Glucose 352 H D (80-110) mg/dL Lactate (0.7-2.1) mmol/L Uric Acid (3.5-8.5) mg/dL Calcium 9.2 (8.4-10.2) mg/dL Total Bilirubin 1.0 (0.2-1.3) mg/dL AST 35 (17-59) IU/L ALT 45 (<50) IU/L Alkaline Phosphatase 97 (38-126) U/L C-Reactive Protein (<1.0) mg/dL Total Protein 7.6 (6.3-8.2) g/dL Albumin 4.2 (3.5-5.0) g/dL Globulin 3.4 (1.7-4.1) g/dL Albumin/Globulin Ratio 1.2 (1.0-2.8) Lipase 77 (23-300) U/L Procalcitonin 0.08 (<0.5) ng/mL 07/09/21 07/09/21 07/09/21 Range/Units 10:00 10:00 10:00 WBC (4.5-11.0) X10^3/uL RBC (4.5-5.9) X10^6/uL Hgb (13.5-17.5) g/dL Hct (41-53) % MCV (80-100) fL MCH (26-34) PG MCHC (30-36) % RDW (11.6-14.8) % Plt Count (150-400) X10^3/uL Neut % (Auto) (50-75) % Lymph % (Auto) (25-40) % [place] % (Auto) (3-14) % Eos % (Auto) (2-4) % Baso % (Auto) (0-2) % Neut # (Auto) (0747-3565) /uL Lymph # (Auto) (5765-6272) /uL [place] # (Auto) (0-900) /uL Eos # (Auto) (0-450) /uL Baso # (Auto) (0-100) /uL ESR 60 H (0-15) MM/HR PT (10.1-12.7) SECONDS INR (0.9-1.3) APTT (26.4-36.2) SECONDS Sodium (137-145) mmol/L Potassium (3.4-5.1) mmol/L Chloride (98-107) mmol/L Carbon Dioxide (22-32) mmol/L BUN (9-20) mg/dL Creatinine (0.66-1.25) mg/dL Estimated GFR (>60) mL/min BUN/Creatinine Ratio (6-22) Glucose (80-110) mg/dL Lactate 2.3 H (0.7-2.1) mmol/L Uric Acid 5.0 (3.5-8.5) mg/dL Calcium (8.4-10.2) mg/dL Total Bilirubin (0.2-1.3) mg/dL AST (17-59) IU/L ALT (<50) IU/L Alkaline Phosphatase (38-126) U/L C-Reactive Protein 11.2 H (<1.0) mg/dL Total Protein (6.3-8.2) g/dL Albumin (3.5-5.0) g/dL Globulin (1.7-4.1) g/dL Albumin/Globulin Ratio (1.0-2.8) Lipase (23-300) U/L Procalcitonin (<0.5) ng/mL MDM Narrative Medical decision making narrative: 75-year-old gentleman with an at infected olecranon bursitis and cellulitis presented on the aspiration confirmed this was not gout. He has responded beautifully to Keflex. He was given a brief course of Percocet. At this point he is out of both medications and concerned that there is still some erythema and pain. Reassured him that this is all appropriate healing. Will do an additional 7 days of Keflex but there is not enough bursal fluid at this point to repeat any type of aspiration. Cellulitis is completely resolved. Range of motion is dramatically improved and is slightly limited in full extension due to the bursal edema itself but there is no suggestion of intra-articular extension or complication. In the emergency department he is given another g of IV ceftriaxone. Will refill prescriptions and reassurance is given. He is safe for home discharge Discharge Plan Departure Patient Disposition: Home Clinical Impression: Olecranon bursitis, left elbow, Bursitis due to bacterial infection Instructions: DI for Elbow Bursitis Activity Restrictions/Additional Instructions: Thank you for coming in today Your elbow looks dramatically improved. The bursa, the fluid collection at the tip of your elbow is much smaller. Because the area is still red and tender I am going to suggest an additional 7 days of Keflex. For pain control you can continue to use Naprosyn 2 pills in the morning 2 pills in the evening with an occasional Percocet mid day if needed. I hope you heal quickly Prescriptions: New oxycodone-acetaminophen 5-325 mg tablet 1 tab PO Q6H PRN (Reason: pain) Qty: 12 0RF cephalexin 500 mg capsule 500 mg PO TID Qty: 21 0RF No Action aspirin 81 MG tablet,delayed release (DR/EC) 81 mg PO QDAY Qty: 0 0RF (DME) BD Ultra Fine [place] 8MM Qty: 100 3RF Rx Instructions: Use to test blood sugars daily or as directed by physcian. candesartan 4 mg tablet See Rx Instructions .ROUTE .COMPLEX Qty: 90 3RF Dose Instruction: TAKE 1/2 TABLET BY MOUTH ONCE DAILY FOR BLOOD PRESSURE Rx Instructions: TAKE 1/2 TABLET BY MOUTH ONCE DAILY FOR BLOOD PRESSURE metformin 1,000 mg tablet 1,000 mg PO BID Qty: 180 1RF propranolol 40 mg tablet 40 mg PO BID Qty: 180 1RF tamsulosin [Flomax] 0.4 mg capsule 0.4 mg PO QDAY Qty: 90 1RF atorvastatin [Lipitor] 40 mg tablet 40 mg PO QPM Qty: 90 1RF clobetasol 0.05 % cream 1 applic topical BID PRN (Reason: Psoriasis) Qty: 45 5RF citalopram 20 mg tablet 20 mg PO DAILY Qty: 90 1RF dulaglutide 3 mg/0.5 mL pen injector 3 mg SUBCUT QWEEK Qty: 6 1RF alpha lipoic acid 200 mg capsule 200 mg PO TID 0RF tolterodine 2 mg capsule,extended release 24hr 2 mg PO DAILY Qty: 90 3RF glipizide 5 mg tablet 5 mg PO DAILY Qty: 90 1RF gabapentin 100 mg capsule 200 mg PO BID 0RF Lantus Solostar U-100 Insulin 100 unit/mL (3 mL) insulin pen 60 unit SUBCUT BID Qty: 45 5RF Hold Instructions: trial of trulicity melatonin 10 mg Tablet 10 mg PO BEDTIME 0RF doxycycline hyclate 100 mg tablet 100 mg PO BID Qty: 20 0RF oxycodone-acetaminophen 5-325 mg tablet 1 tab PO Q6H PRN (Reason: pain) Qty: 12 0RF Referrals: Ravi Laughlin MD [Primary Care Provider] -
[2021-07-09] MEDS: cefTRIAXone 1,000 MG in SODIUM CHLORIDE 0.9% 100 ML 200 ML IV (11:30)
[2021-07-09 12:10] VITALS: BP 153/92; PULSE 94; RESP 14; O2SAT 100
[2021-07-09 12:12] LABS: Reflexed Lactate in 2 Hours Y
== END 2021-07-09 12:17 | disposition home or self-care (01) ==
PROVIDERS: Emergency Provider Emergency Medicine; Family Provider Student in an Organized Health Care Education/Training Program; PCP Student in an Organized Health Care Education/Training Program
DX: M71.122 Other infective bursitis, left elbow (principal); B96.89 Other specified bacterial agents as the cause of diseases classified elsewhere; Z87.891 Personal history of nicotine dependence
CPT/HCPCS: 36415; 73080; 80053; 83605; 83690; 84145; 84550; 85025; 85610; 85651; 85730; 86140; 87040; 93005; 96365; 99284; J0696

== ENCOUNTER → 2021-09-20 14:46 | Outpatient (CLI) | payer MEDICARE, OTHER, SELFPAY ==
[2019-05-05 20:05] VITALS: BMI 35.2
[2021-09-20 15:56] LABS: BUN Creatinine Ratio 32.2 (6-22); Blood Urea Nitrogen 28 mg/dL (9-20); Cholesterol 121 mg/dL (140-199); Estimated Glomerular Filt Rate > 60.0 mL/min (>60); HDL Cholesterol 31 mg/dL (40-60); LDL Cholesterol Calculated 54 mg/dL (<100); Triglycerides 178 mg/dL (35-150)
[2021-09-20 16:02] LABS: Hemoglobin A1C% w Est Avg Glu 7.3 % (4.0-6.0)
[2021-09-20 16:45] LABS: Vitamin B12 242 pg/mL (239-931)
== END ==
PROVIDERS: Family Provider Student in an Organized Health Care Education/Training Program; PCP Student in an Organized Health Care Education/Training Program; Referring Provider Student in an Organized Health Care Education/Training Program; Visit Provider Student in an Organized Health Care Education/Training Program
DX: E11.42 Type 2 diabetes mellitus with diabetic polyneuropathy (principal); E11.69 Type 2 diabetes mellitus with other specified complication; E78.5 Hyperlipidemia, unspecified; Z79.4 Long term (current) use of insulin; G62.9 Polyneuropathy, unspecified
CPT/HCPCS: 36415; 80061; 82565; 82607; 83036; 84520

== ENCOUNTER → 2021-10-17 11:21 | Outpatient (CLI) | payer MEDICARE, OTHER, SELFPAY ==
[2019-05-05 20:05] VITALS: BMI 35.2
[2021-10-17 13:23] LABS: BUN Creatinine Ratio 32.2 (6-22); Blood Urea Nitrogen 28 mg/dL (9-20); Calcium 8.7 mg/dL (8.4-10.2); Carbon Dioxide 33 mmol/L (22-32); Chloride 101 mmol/L (98-107); Estimated Glomerular Filt Rate > 60 mL/min (>60); Glucose 76 mg/dL (80-110); HEMOLYSIS < 15 (0-50); Potassium 4.6 mmol/L (3.4-5.1); Sodium 140 mmol/L (137-145)
== END ==
PROVIDERS: Family Provider Student in an Organized Health Care Education/Training Program; PCP Student in an Organized Health Care Education/Training Program; Referring Provider Student in an Organized Health Care Education/Training Program; Visit Provider Student in an Organized Health Care Education/Training Program
DX: E11.42 Type 2 diabetes mellitus with diabetic polyneuropathy (principal); Z79.4 Long term (current) use of insulin
CPT/HCPCS: 36415; 80048

== ENCOUNTER → 2021-10-20 10:55 | Outpatient (CLI) | payer MEDICARE, OTHER, SELFPAY ==
[2019-05-05 20:05] VITALS: BMI 35.2
== END ==
PROVIDERS: Family Provider Student in an Organized Health Care Education/Training Program; PCP Student in an Organized Health Care Education/Training Program; Referring Provider Student in an Organized Health Care Education/Training Program; Visit Provider Student in an Organized Health Care Education/Training Program
DX: R93.89 Abnormal findings on diagnostic imaging of other specified body structures (principal); R06.02 Shortness of breath

== ENCOUNTER → 2021-10-21 10:10 | Outpatient (CLI) | payer MEDICARE, OTHER, SELFPAY ==
[2019-05-05 20:05] VITALS: BMI 35.2
--- NOTE | 2021-10-21 10:17 | DI.CT.S_ITS ---
PROCEDURE: CT CHEST W CON INDICATIONS: Shortness of breath TECHNIQUE: After the administration of intravenous contrast, 5 mm thick sections acquired from the pulmonary apices to the posterior costophrenic angles. 1 mm axial lung, 5 mm thick coronal and sagittal reformats and 7 mm axial MIP were acquired. For radiation dose reduction, the following was used: automated exposure control, adjustment of mA and/or kV according to patient size. COMPARISON: [facility], CT, CT ANGIO CHEST PE PROTOCOL, 11/17/2020, 11:49. FINDINGS: Image quality: Excellent. Lungs and pleura: Small bilateral pleural effusions are seen with adjacent atelectasis. Mild emphysematous change. Central and peripheral airways are patent and normal in caliber. Mediastinum: Heart size is normal. No pericardial effusion. Coronary artery calcification. No mediastinal or hilar adenopathy by size criteria. Thoracic aorta and central pulmonary arteries are normal in size. Mild calcified atheromatous change of the aorta. Esophagus is normal in caliber. No hiatal hernia. Bones and chest wall: No suspicious bony lesions. No vertebral body compression fractures. Multifocal degenerative change. Sternotomy wires alignment is maintained. No axillary or supraclavicular adenopathy by size criteria. Thyroid gland appears homogeneous. Abdomen: No significant abnormality. Gallbladder surgically absent. IMPRESSION: Small bilateral pleural effusions with adjacent atelectasis. Dictated by: Anival Du M.D. on 10/21/2021 at 12:05 Approved by: Anival Du M.D. on 10/21/2021 at 12:12
== END ==
PROVIDERS: Family Provider Student in an Organized Health Care Education/Training Program; PCP Student in an Organized Health Care Education/Training Program; Referring Provider Student in an Organized Health Care Education/Training Program; Visit Provider Student in an Organized Health Care Education/Training Program
DX: J90 Pleural effusion, not elsewhere classified; J98.11 Atelectasis; R06.02 Shortness of breath
CPT/HCPCS: 71260

== ENCOUNTER → 2021-11-14 09:21 | Outpatient (CLI) | payer MEDICARE, OTHER, SELFPAY ==
[2019-05-05 20:05] VITALS: BMI 35.2
[2021-11-14 10:37] LABS: Creatinine Urine Random 180.1 mg/dL
[2021-11-14 10:40] LABS: Microalbumi Creatinin Ratio Ur 76.6 ug/mg CR (<30); Microalbumin Urine Random 13.8 mg/dL (0-1.6)
[2021-11-14 11:37] LABS: Hemoglobin A1C% w Est Avg Glu 6.3 % (4.0-6.0)
== END ==
PROVIDERS: Family Provider Student in an Organized Health Care Education/Training Program; PCP Student in an Organized Health Care Education/Training Program; Referring Provider Student in an Organized Health Care Education/Training Program; Visit Provider Student in an Organized Health Care Education/Training Program
DX: E11.42 Type 2 diabetes mellitus with diabetic polyneuropathy (principal); Z79.4 Long term (current) use of insulin
CPT/HCPCS: 36415; 82043; 82570; 83036

== ENCOUNTER → 2021-12-21 09:21 | Outpatient (CLI) | payer MEDICARE, OTHER, SELFPAY ==
[2019-05-05 20:05] VITALS: BMI 35.2
--- NOTE | 2021-12-21 | DI.ECHO.S_ITS ---
[facility] +---------+ : : [address] : : : : [id number] : : : : Phone: [phone]---------+ Echocardiogram Report + + :Name: OSCO HORAN Study Date: 12/21/2021 Height: 70 in : :[facility] ReadingLocation: Weight: 245 lb : : Gender: Male BSA: 2.3 m2 : :: 1945 Age: 76 yrs BP: 157/100 mmHg: :Reason For Study: SHORTNESS OF BREATH : :Ordering Physician: TONYA, : :ELLIOTT Performed By: Rosaura Castillo : :Referring: ELLIOTT CASTANEDA : + + Interpretation Summary 1) Normal left ventricular size with severely reduced systolic function (EF 20-25%). 2) Grossly, normal right ventricular size wiith mildly reduced function. 3) There is mild aortic regurgitation. 4) The IVC is dilated (diameter is greater than 2.1 cm) and it collapses less than 50% with a sniff. This suggests a high right atrial pressure of 15 mm Hg. 5) Hypertension present during the study (BP 157/100mm Hg). 6) No prior Echo available for comparison. Recommend urgent cardiology consult. Procedure: A two-dimensional transthoracic echocardiogram with color flow and Doppler was performed. There is no prior echocardiogram noted for this patient. The study quality was technically difficult. A contrast injection of Definity was performed to improve assessment of LV function. The heart rate ranged between 87-93 bpm during the study. Left Ventricle: There is mild concentric left ventricular hypertrophy. The left ventricle is normal in size. The ejection fraction is estimated to be 20- 25%. There is severe global hypokinesis of the left ventricle. There is a significant dyssynchronous contraction pattern, consistent with a conduction abnormality. Right Ventricle: The right ventricle is not well visualized. Subcostal right ventricle appears grossly normal size. Right ventricular systolic function is mildly reduced. Atria: The left atrium is mildly dilated. The right atrium is mildly dilated. There is no Doppler evidence for an interatrial shunt. Mitral Valve: The mitral valve is normal in structure and function. There is trace mitral regurgitation. Aortic Valve: The aortic valve opens well. There is no aortic valve stenosis. There is mild aortic regurgitation. Tricuspid Valve: The tricuspid valve is not well visualized. Pulmonary artery pressures cannot be estimated because of the lack of a measurable TR jet velocity. Pulmonic Valve: The pulmonic valve leaflets are thin and pliable; valve motion is normal. There is mild pulmonic regurgitation. Great Vessels: The aortic root is normal size. The ascending aorta is at the upper limits of normal in size. The IVC is dilated (diameter is greater than 2.1 cm) and it collapses less than 50% with a sniff. This suggests a high right atrial pressure of 15 mm Hg. Pericardium/ Pleura There is no pericardial effusion. There is no pleural effusion. MMode/2D Measurements & Calculations LVIDd: 5.3 cm LVOT diam: 2.3 cm LVIDs: 4.7 cm Ao root diam: 3.6 cm FS: 10.5 % asc Aorta Diam: 3.7 cm EPSS: 2.0 cm IVSd: 1.2 cm LVPWd: 1.3 cm LV cronin. diameter/BSA (cm/m^2): 2.3 LV sys. diameter/BSA (cm/m^2): 2.1 LA A2 area: 21.3 cm2 RA long axis: 6.1 cm LA A4 area: 26.8 cm2 RA area: 25.8 cm2 LA length (vol): 6.2 cm RA vol: 92.9 ml LA vol: 78.6 ml RA : 40.8 ml/m2 LA vol index: 34.6 ml/m2 IVC diam: 2.6 cm Doppler Measurements & Calculations Ao V2 max: 123.1 cm/sec LVOT Max Satinder: 77.6 cm/sec Ao V2 mean: 80.8 cm/sec LV V1 max P.4 mmHg Ao max P.1 mmHg LV V1 VTI: 14.4 cm Ao mean P.0 mmHg OBDULIA(I,D): 2.8 cm2 Ao V2 VTI: 20.9 cm OBDULIA(V,D): 2.6 cm2 sev ratio: 0.69 OBDULIA indexed to BSA (cm^2/m^2): 1.2 MV E max satinder: 98.1 cm/sec PA V2 max: 73.3 cm/sec Med Peak E' Satinder: 6.5 cm/sec PA V2 mean: 43.6 cm/sec E/E' med: 15.0 PA mean P.83 mmHg Lat Peak E' Satinder: 10.3 cm/sec PA Accel Time: 0.05 sec E/E' lat: 9.5 E/e' average: 12.3 MV P1/2t: 42.4 msec MV P1/2t max satinder: 99.3 cm/sec SV(LVOT): 58.9 ml MVA(P1/2t): 5.2 cm2 Reading Physician:12:39 PM
== END ==
PROVIDERS: Family Provider Student in an Organized Health Care Education/Training Program; PCP Student in an Organized Health Care Education/Training Program; Referring Provider Student in an Organized Health Care Education/Training Program; Visit Provider Student in an Organized Health Care Education/Training Program
DX: R68.89 Other general symptoms and signs (principal); R06.02 Shortness of breath; I35.1 Nonrheumatic aortic (valve) insufficiency; I10 Essential (primary) hypertension
CPT/HCPCS: C8929; Q9957

== ENCOUNTER → 2022-02-20 09:32 | Outpatient (CLI) | payer MEDICARE, OTHER, SELFPAY ==
[2019-05-05 20:05] VITALS: BMI 35.2
== END ==
PROVIDERS: Family Provider Student in an Organized Health Care Education/Training Program; PCP Student in an Organized Health Care Education/Training Program; Referring Provider Student in an Organized Health Care Education/Training Program; Visit Provider Family Medicine
DX: L08.9 Local infection of the skin and subcutaneous tissue, unspecified (principal); T14.8XXA Other injury of unspecified body region, initial encounter; E11.621 Type 2 diabetes mellitus with foot ulcer; L97.526 Non-pressure chronic ulcer of other part of left foot with bone involvement without evidence of necrosis; B87.1 Wound myiasis; E11.40 Type 2 diabetes mellitus with diabetic neuropathy, unspecified; R60.0 Localized edema; L53.9 Erythematous condition, unspecified; M86.172 Other acute osteomyelitis, left ankle and foot; Z89.422 Acquired absence of other left toe(s); Z79.4 Long term (current) use of insulin; Z79.84 Long term (current) use of oral hypoglycemic drugs
CPT/HCPCS: 36415; 73660; 80053; 83036; 85025; 85651; 86140; 99214

== ENCOUNTER → 2022-02-20 10:34 | Outpatient (CLI) | payer MEDICARE, OTHER, SELFPAY ==
[2019-05-05 20:05] VITALS: BMI 35.2
--- NOTE | 2022-02-20 10:37 | DI.RAD.S_ITS ---
PROCEDURE: XR TOE LT MIN 2V INDICATIONS: L 3rd toe evaluation for Osteo TECHNIQUE: 3 views of the 3rd toe(s) acquired. COMPARISON: None. 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 Flexion at 3rd and 4th PIP joints are seen. Bony erosive changes are noted involving dorsal cortex of 3rd distal phalangeal tuft concerning for osteomyelitis in this area. No acute fracture or dislocation. No suspicious bony lesions. Soft tissues: No suspicious soft tissue densities. Soft tissue swelling surrounding 3rd toe is seen. IMPRESSION: Finding is suggestive of osteomyelitis involving dorsal cortex of 3rd distal phalangeal tuft. Dictated by: Juice Parson M.D. on 02/20/2022 at 11:58 Approved by: Juice Parson M.D. on 02/20/2022 at 11:59
[2022-02-20 13:10] LABS: Add Manual Diff / Slide Review NO; Basophils Absolute Auto 0 /uL (0-100); Basophils Percent Auto 0.6 % (0-2); Eosinophils Absolute Auto 100 /uL (0-450); Eosinophils Percent Auto 1.7 % (2-4); Hematocrit 38.1 % (41-53); Hemoglobin 12.9 g/dL (13.5-17.5); Lymphocytes Absolute Auto 1300 /uL (1100-4500); Lymphocytes Percent Auto 16.3 % (25-40); Mean Corpuscular HGB Conc 33.8 % (30-36); Mean Corpuscular Hemoglobin 31.3 PG (26-34); Mean Corpuscular Volume 92.5 fL (80-100); Monocytes Absolute Auto 700 /uL (0-900); Monocytes Percent Auto 9.1 % (3-14); Neutrophils Absolute Auto 5900 /uL (1500-7000); Neutrophils Percent Auto 72.3 % (50-75); Platelet Count 272 X10^3/uL (150-400); Red Blood Cell Count 4.11 X10^6/uL (4.5-5.9); Red Cell Distribution Width 14.1 % (11.6-14.8); White Blood Cell Count 8.1 X10^3/uL (4.5-11.0)
[2022-02-20 13:28] LABS: Hemoglobin A1C% w Est Avg Glu 8.5 % (4.0-6.0)
[2022-02-20 14:24] LABS: Alanine Aminotransferase 26 IU/L (<50); Albumin 3.8 g/dL (3.5-5.0); Albumin Globulin Ratio 1.3 (1.0-2.8); Alkaline Phosphatase 70 U/L (38-126); Aspartate Aminotransferase 27 IU/L (17-59); BUN Creatinine Ratio 23.9 (6-22); Bilirubin Total 0.5 mg/dL (0.2-1.3); Blood Urea Nitrogen 22 mg/dL (9-20); C-Reactive Protein Quant 0.9 mg/dL (<1.0); Calcium 8.5 mg/dL (8.4-10.2); Carbon Dioxide 29 mmol/L (22-32); Chloride 100 mmol/L (98-107); Estimated Glomerular Filt Rate > 60 mL/min (>60); Globulin 2.9 g/dL (1.7-4.1); Glucose 121 mg/dL (80-110); HEMOLYSIS < 15 (0-50); Potassium 4.6 mmol/L (3.4-5.1); Sodium 141 mmol/L (137-145); Total Protein 6.7 g/dL (6.3-8.2)
[2022-02-20 14:30] LABS: Erythrocyte Sedimentation Rate 22 MM/HR (0-15)
== END ==
PROVIDERS: Family Provider Student in an Organized Health Care Education/Training Program; PCP Student in an Organized Health Care Education/Training Program; Referring Provider Family Medicine; Visit Provider Family Medicine
DX: L08.9 Local infection of the skin and subcutaneous tissue, unspecified (principal); T14.8XXA Other injury of unspecified body region, initial encounter
CPT/HCPCS: 36415; 73660; 80053; 83036; 85025; 85651; 86140

== ENCOUNTER → 2022-02-27 10:46 | Outpatient (CLI) | payer MEDICARE, OTHER, SELFPAY ==
[2019-05-05 20:05] VITALS: BMI 35.2
== END ==
PROVIDERS: Family Provider Student in an Organized Health Care Education/Training Program; PCP Student in an Organized Health Care Education/Training Program; Referring Provider Student in an Organized Health Care Education/Training Program; Visit Provider Family Medicine
DX: E11.621 Type 2 diabetes mellitus with foot ulcer (principal); T87.81 Dehiscence of amputation stump; L97.522 Non-pressure chronic ulcer of other part of left foot with fat layer exposed; M86.172 Other acute osteomyelitis, left ankle and foot; R60.0 Localized edema; M20.42 Other hammer toe(s) (acquired), left foot
CPT/HCPCS: 11042; 99213

== ENCOUNTER → 2022-03-13 10:32 | Outpatient (CLI) | payer MEDICARE, OTHER, SELFPAY ==
[2019-05-05 20:05] VITALS: BMI 35.2
== END ==
PROVIDERS: Family Provider Student in an Organized Health Care Education/Training Program; PCP Student in an Organized Health Care Education/Training Program; Referring Provider Student in an Organized Health Care Education/Training Program; Visit Provider Family Medicine
DX: E11.621 Type 2 diabetes mellitus with foot ulcer (principal); L97.522 Non-pressure chronic ulcer of other part of left foot with fat layer exposed; M86.172 Other acute osteomyelitis, left ankle and foot; E11.42 Type 2 diabetes mellitus with diabetic polyneuropathy; M20.42 Other hammer toe(s) (acquired), left foot; Z89.422 Acquired absence of other left toe(s); Z79.2 Long term (current) use of antibiotics
CPT/HCPCS: 11042

== ENCOUNTER → 2022-03-27 11:21 | Outpatient (CLI) | payer MEDICARE, OTHER, SELFPAY ==
[2019-05-05 20:05] VITALS: BMI 35.2
== END ==
PROVIDERS: Family Provider Student in an Organized Health Care Education/Training Program; PCP Student in an Organized Health Care Education/Training Program; Referring Provider Student in an Organized Health Care Education/Training Program; Visit Provider Family Medicine
DX: E11.621 Type 2 diabetes mellitus with foot ulcer (principal); L97.522 Non-pressure chronic ulcer of other part of left foot with fat layer exposed; M86.172 Other acute osteomyelitis, left ankle and foot; E11.42 Type 2 diabetes mellitus with diabetic polyneuropathy; M20.42 Other hammer toe(s) (acquired), left foot; Z89.422 Acquired absence of other left toe(s)
CPT/HCPCS: 11042; 99213

== ENCOUNTER → 2022-04-05 11:39 | Outpatient (CLI) | payer MEDICARE, OTHER, SELFPAY ==
[2019-05-05 20:05] VITALS: BMI 35.2
[2022-04-05 12:08] LABS: COVID19 -Nasal RAPID Negative (Negative)
== END ==
PROVIDERS: Family Provider Student in an Organized Health Care Education/Training Program; PCP Student in an Organized Health Care Education/Training Program; Referring Provider Podiatrist; Visit Provider Podiatrist
DX: Z20.822 Contact with and (suspected) exposure to COVID-19 (principal)
CPT/HCPCS: 87635; C9803

== ENCOUNTER 2022-04-07 06:20 | Day surgery (SDC) | payer MEDICARE, OTHER, SELFPAY ==
[2019-05-05 20:05] VITALS: BMI 35.2
[2022-04-06 09:27] VITALS: BMI 33.3
--- NOTE | 2022-04-07 | PATH_ITS ---
[facility] Accession Number: [id number] No. of containers..01 Tissue . 01 Material submitted: . toe - 3RD TOE LEFT FOOT . 01 Clinical history: . OSETEOMYELITIS . 01 Diagnosis: Left Foot, Third Toe, Amputation: Skin with ulcer and underlying mixed inflammation, fibrosis, and bacterial impetiginization. Underlying bone with marrow fibrosis, evidence of remodeling, and scattered neutrophilic inflammation suggestive of osteomyelitis. Skin and soft tissue en face margin viable with mild chronic inflammation. Bone articular en face margin viable without significant inflammatory infiltrate. . Note: Clinical and radiographic correlation is suggested. MRV 04/14/2022 1644 Local . 01 Comment: Additional step sections are examined on block A3. In addition, cytologic evaluation is somewhat limited on block A3 due to tissue processing/fixation artifact. . 01 Electronically signed: . Velasquez Nicole MD, Dermatopathologist NPI- [id number] . 01 Gross description: . The specimen is received in formalin labeled with the patient's name and L. foot (left) third toe osteomyelitis, and consists of a disarticulated digit measuring 5.6 cm in length and 2.2 cm in maximum diameter with a moderate amount of exposed bone extending from the soft tissue measuring 2.9 cm in length. The cutaneous surface is gongora and wrinkled and significant for a wood-black ulcerated area at the tip of the digit measuring 0.9 x 0.8 cm. The nail bed is wood-gongora and thickened. The disarticulated surface is inked orange while the soft tissue margins are inked blue. Sectioning reveals yellow to gongora soft tissue that is wood and discolored near the area of ulceration and the bone is relatively difficult to section with a scalpel. Range Aid sections are submitted as follows following decalcification. A1: Soft tissue margin en face. A2: Articular surface en face. A3: Range Aid longitudinal section of ulcer with bone. ([id number]) /DIMITRI 04/11/2022 1154 Local . 01 Pathologist provided ICD-10: M86.9 . 01 CPT . 913504, [id number] Specimen Comment: A courtesy copy of this report has been sent to [phone] Performed at: 01 [facility] [address] [place] [address], [place], [place] [id number] MD Angel Cedeno MD Phone: [phone]
[2022-04-07 07:06] VITALS: BP 134/76; PULSE 87; RESP 16; TEMP 35.8; O2SAT 98; BMI 33.3
--- NOTE | 2022-04-07 07:35 | PM.PREOP ---
Pre-operative Note COVID-19 COVID-19 status: Negative Result date/Date tested (Pos, Neg/Pending): 04/05/22 Interval Note History & Physical reviewed/Exam performed by Physician: Yes Changes to H&P: No
--- NOTE | 2022-04-07 07:36 | P.OP_ITS ---
Operative Date/Time/Diagnoses Date of procedure: 04/07/22 Time of procedure: 07:36 Pre-op diagnosis: Left toes recurrent ulcerations, hammertoes Post-op diagnosis: same Procedure & Clinicians Procedure: Left third, fourth, and fifth toe amputations Same procedure as scheduled: Yes Indications: 76-year-old diabetic male with history of recurrent ulcerations to the hammertoes of the left foot. Suspicion of osteomyelitis to the left 3rd toe. Conservative measures have failed to correct this condition and surgical intervention is desired. We spoke about the risks, potential complications, alternatives, and expected outcomes. Consent is signed, no contraindications to the procedures at this time. Surgeon: Victoria Bettencourt Click Yes if Unassisted: Yes Anesthesia Type: MAC +/- Operative Notes Closure Type: primary Specimen(s): other (1. left third toe sent to pathology for identification possible osteomyelitis 2. left third metatarsal head deep swab sent for aerobic/anaerobic culture, GS) Estimated Blood Loss (mL): 30 Blood products transfused: none Tourniquet time (min): 28 Procedure in detail: The patient was brought to the operating room and placed on the operating table in the supine position. The tourniquet was placed about the left ankle. Well- padded, appropriately aligned. After induction of iv sedation, local anesthesia was delivered to the left foot toes region. The foot and ankle were prepped and draped in the usual aseptic manner. The tourniquet was inflated. After check of anesthesia a full-thickness circumferential incision was made around the third toe. This was then continued into the metatarsophalangeal joint linearly. The toe was carefully disarticulated. The area was irrigated with copious amounts of normal sterile saline. No necrotic tissue or abscesses were noted at the disarticulation site. Redundant tendon was removed. Skin and tissue was revised to allow for appropriate closure. Vessels were cauterized and ligated as necessary. The same procedure was performed to the fourth and fifth toes. The tourniquet was deflated, a prompt hyperemic response was seen to the foot. 4-0 Vicryl was used subcutaneously for closure and 3-0 nylon for the skin. The area was dressed with a sterile lightly compressive dressing. Post-operative Condition: stable Disposition: PACU Plan for aftercare: Following a period of postoperative monitoring, the patient will be discharged to home on written and oral postoperative instructions including keeping the dressing dry and intact, only minimal touchdown ambulation on the foot for steadying as periodically needed, and elevating the foot when seated home. DVT prevention techniques have been reviewed. For the 1st postoperative visit the dressing will be changed and close to the 3rd postoperative week we will likely remove the sutures.
[2022-04-07] MEDS: CEFAZOLIN 2 GM/100 ML PREMIX 100 ML IV (07:43)
--- NOTE | 2022-04-07 08:08 | SUR.OPER ---
Supine on padded OR bed, head on pillow, arms secured on padded arm boards at <90 degrees abduction, legs uncrossed, safety belt at abdomen, tape over blanket over lower right leg.
[2022-04-07] MEDS: LIDOCAINE 2% INJ MDV 20ML 20 ML INJ (08:36)
[2022-04-07] MEDS: BUPIVACAINE 0.5% (PF) VIAL 30 ML INJ (08:37)
[2022-04-07 09:25] VITALS: BP 124/77; PULSE 82; RESP 16; TEMP 36.2; O2SAT 96
[2022-04-07 09:49] VITALS: BP 136/79; PULSE 82; RESP 16; O2SAT 99
== END 2022-04-07 10:26 | disposition home or self-care (01) ==
PROVIDERS: Family Provider Student in an Organized Health Care Education/Training Program; PCP Student in an Organized Health Care Education/Training Program; Referring Provider Podiatrist; Visit Provider Podiatrist
PROC: (CPT 28820; principal; 2022-04-07 07:45)
DX: E11.621 Type 2 diabetes mellitus with foot ulcer (principal); E11.42 Type 2 diabetes mellitus with diabetic polyneuropathy; M20.42 Other hammer toe(s) (acquired), left foot; I11.0 Hypertensive heart disease with heart failure; I50.22 Chronic systolic (congestive) heart failure; Z79.4 Long term (current) use of insulin; Z79.84 Long term (current) use of oral hypoglycemic drugs
CPT/HCPCS: 28820 ×3; 82962; 87070; 87075; 87186; 87205; J0690

== ENCOUNTER → 2022-05-24 11:55 | Outpatient (CLI) | payer MEDICARE, OTHER, SELFPAY ==
[2019-05-05 20:05] VITALS: BMI 35.2
== END ==
PROVIDERS: Family Provider Student in an Organized Health Care Education/Training Program; PCP Student in an Organized Health Care Education/Training Program; Referring Provider Podiatrist; Visit Provider Surgery
DX: E11.621 Type 2 diabetes mellitus with foot ulcer (principal); L97.523 Non-pressure chronic ulcer of other part of left foot with necrosis of muscle; Z89.412 Acquired absence of left great toe; Z89.422 Acquired absence of other left toe(s); T87.89 Other complications of amputation stump; S91.302A Unspecified open wound, left foot, initial encounter; E11.628 Type 2 diabetes mellitus with other skin complications; E11.40 Type 2 diabetes mellitus with diabetic neuropathy, unspecified; R60.0 Localized edema; L53.9 Erythematous condition, unspecified
CPT/HCPCS: 11042; 73630; 87070; 87075; 87077; 87186; 87205; 99214

== ENCOUNTER → 2022-05-24 12:30 | Outpatient (CLI) | payer MEDICARE, OTHER, SELFPAY ==
[2019-05-05 20:05] VITALS: BMI 35.2
--- NOTE | 2022-05-24 12:31 | DI.RAD.S_ITS ---
PROCEDURE: XR FOOT LT MIN 3V INDICATIONS: non-healing surgical wound distal foot, evaluate for osteo TECHNIQUE: 3 views of the foot were acquired. COMPARISON: [facility], , XR FOOT LT MIN 3V, 12/10/2018, 14:14. FINDINGS: Bones: Old healed fracture deformity of the 2nd metatarsal. There is amputation of the toes at the metatarsophalangeal joints. Overlying soft tissues unremarkable. No lytic or blastic lesion. And posterior and plantar calcaneal spurs Soft tissues: No tibiotalar joint effusion. Achilles tendon appears normal. IMPRESSION: 1. This 1st through 5th toe amputation without lytic or blastic lesion. 2. Old healed metatarsal fracture Approved by: Geovani Urena M.D. on 05/24/2022 at 14:59
== END ==
PROVIDERS: Family Provider Student in an Organized Health Care Education/Training Program; PCP Student in an Organized Health Care Education/Training Program; Referring Provider Surgery; Visit Provider Surgery
DX: E11.621 Type 2 diabetes mellitus with foot ulcer (principal); L97.529 Non-pressure chronic ulcer of other part of left foot with unspecified severity; Z89.412 Acquired absence of left great toe; Z89.422 Acquired absence of other left toe(s)
CPT/HCPCS: 73630

== ENCOUNTER → 2022-06-08 12:30 | Outpatient (CLI) | payer MEDICARE, OTHER, SELFPAY ==
[2019-05-05 20:05] VITALS: BMI 35.2
== END ==
PROVIDERS: Family Provider Student in an Organized Health Care Education/Training Program; PCP Student in an Organized Health Care Education/Training Program; Referring Provider Student in an Organized Health Care Education/Training Program; Visit Provider Surgery
DX: T81.31XA Disruption of external operation (surgical) wound, not elsewhere classified, initial encounter (principal); T87.89 Other complications of amputation stump
CPT/HCPCS: 97597

== ENCOUNTER → 2022-06-15 09:06 | Outpatient (CLI) | payer MEDICARE, OTHER, SELFPAY ==
[2019-05-05 20:05] VITALS: BMI 35.2
== END ==
PROVIDERS: Family Provider Student in an Organized Health Care Education/Training Program; PCP Student in an Organized Health Care Education/Training Program; Referring Provider Student in an Organized Health Care Education/Training Program; Visit Provider Surgery
DX: T81.31XA Disruption of external operation (surgical) wound, not elsewhere classified, initial encounter (principal); T87.89 Other complications of amputation stump; R60.0 Localized edema; L53.9 Erythematous condition, unspecified; E11.40 Type 2 diabetes mellitus with diabetic neuropathy, unspecified
CPT/HCPCS: 97597

== ENCOUNTER → 2022-06-22 10:28 | Outpatient (CLI) | payer MEDICARE, OTHER, SELFPAY ==
[2019-05-05 20:05] VITALS: BMI 35.2
== END ==
PROVIDERS: Family Provider Student in an Organized Health Care Education/Training Program; PCP Student in an Organized Health Care Education/Training Program; Referring Provider Student in an Organized Health Care Education/Training Program; Visit Provider Surgery
DX: T87.81 Dehiscence of amputation stump (principal); E11.628 Type 2 diabetes mellitus with other skin complications; E11.40 Type 2 diabetes mellitus with diabetic neuropathy, unspecified
CPT/HCPCS: 11042; 99213

== ENCOUNTER → 2022-06-29 14:06 | Outpatient (CLI) | payer MEDICARE, OTHER, SELFPAY ==
[2019-05-05 20:05] VITALS: BMI 35.2
== END ==
PROVIDERS: Family Provider Student in an Organized Health Care Education/Training Program; PCP Student in an Organized Health Care Education/Training Program; Referring Provider Student in an Organized Health Care Education/Training Program; Visit Provider Surgery
DX: T87.89 Other complications of amputation stump (principal); R60.0 Localized edema; E11.40 Type 2 diabetes mellitus with diabetic neuropathy, unspecified
CPT/HCPCS: 87070; 87077; 87147; 87205; 99212; 99213

== ENCOUNTER → 2022-07-06 11:24 | Outpatient (CLI) | payer MEDICARE, OTHER, SELFPAY ==
[2019-05-05 20:05] VITALS: BMI 35.2
== END ==
PROVIDERS: Family Provider Student in an Organized Health Care Education/Training Program; PCP Student in an Organized Health Care Education/Training Program; Referring Provider Student in an Organized Health Care Education/Training Program; Visit Provider Surgery
DX: T87.89 Other complications of amputation stump (principal); R60.0 Localized edema
CPT/HCPCS: 99213

== ENCOUNTER → 2022-07-13 10:52 | Outpatient (CLI) | payer MEDICARE, OTHER, SELFPAY ==
[2019-05-05 20:05] VITALS: BMI 35.2
[2022-07-13 13:34] LABS: Add Manual Diff / Slide Review NO; Basophils Absolute Auto 0 /uL (0-100); Basophils Percent Auto 0.6 % (0-2); Eosinophils Absolute Auto 200 /uL (0-450); Eosinophils Percent Auto 2.7 % (2-4); Hemoglobin 12.8 g/dL (13.5-17.5); Lymphocytes Absolute Auto 1200 /uL (1100-4500); Lymphocytes Percent Auto 16.4 % (25-40); Mean Corpuscular HGB Conc 33.7 % (30-36); Mean Corpuscular Hemoglobin 32.1 PG (26-34); Mean Corpuscular Volume 95.5 fL (80-100); Monocytes Absolute Auto 600 /uL (0-900); Monocytes Percent Auto 8.9 % (3-14); Neutrophils Absolute Auto 5100 /uL (1500-7000); Neutrophils Percent Auto 71.4 % (50-75); Platelet Count 218 X10^3/uL (150-400); Red Blood Cell Count 3.98 X10^6/uL (4.5-5.9); Red Cell Distribution Width 13.5 % (11.6-14.8); White Blood Cell Count 7.1 X10^3/uL (4.5-11.0)
[2022-07-13 13:59] LABS: Erythrocyte Sedimentation Rate 23 MM/HR (0-15)
[2022-07-13 19:38] LABS: Hemoglobin A1C% w Est Avg Glu 9.5 % (4.0-6.0)
[2022-07-13 19:40] LABS: BUN Creatinine Ratio 24.7 (6-22); Blood Urea Nitrogen 23 mg/dL (9-20); C-Reactive Protein Quant < 0.5 mg/dL (<1.0); Calcium 8.8 mg/dL (8.4-10.2); Carbon Dioxide 29 mmol/L (22-32); Chloride 97 mmol/L (98-107); Estimated Glomerular Filt Rate > 60 mL/min (>60); Glucose 268 mg/dL (80-110); HEMOLYSIS < 15 (0-50); Sodium 138 mmol/L (137-145)
[2022-07-13 19:53] LABS: Potassium 5.4 mmol/L (3.4-5.1)
== END ==
PROVIDERS: Surgery; Family Provider Student in an Organized Health Care Education/Training Program; PCP Student in an Organized Health Care Education/Training Program; Referring Provider Family Medicine Addiction Medicine; Visit Provider Family Medicine Addiction Medicine
DX: T81.31XA Disruption of external operation (surgical) wound, not elsewhere classified, initial encounter (principal)
CPT/HCPCS: 36415; 80048; 83036; 85025; 85651; 86140

== ENCOUNTER → 2022-07-13 | Outpatient (CLI) | payer MEDICARE, OTHER, SELFPAY ==
[2019-05-05 20:05] VITALS: BMI 35.2
== END ==
PROVIDERS: Family Provider Student in an Organized Health Care Education/Training Program; PCP Student in an Organized Health Care Education/Training Program; Referring Provider Student in an Organized Health Care Education/Training Program; Visit Provider Surgery
DX: T81.31XA Disruption of external operation (surgical) wound, not elsewhere classified, initial encounter (principal); T87.89 Other complications of amputation stump; E11.628 Type 2 diabetes mellitus with other skin complications; E11.40 Type 2 diabetes mellitus with diabetic neuropathy, unspecified
CPT/HCPCS: 36415; 80048; 83036; 85025; 85651; 86140; 99213

== ENCOUNTER → 2022-07-15 09:40 | Outpatient (CLI) | payer MEDICARE, OTHER, SELFPAY ==
[2019-05-05 20:05] VITALS: BMI 35.2
--- NOTE | 2022-07-15 09:42 | DI.MRI.S_ITS ---
PROCEDURE: MR FOOT LT WO/W CON INDICATIONS: Eval for osteo, Wound left foot TECHNIQUE: Noncontrast coronal T1 spin echo and STIR, sagittal T1 spin echo with fat saturation and STIR, axial T1 spin echo and T2 fast spin echo with fat saturation. After the administration of contrast, axial/sagittal/coronal T1 spin echo with fat saturation through the left foot. COMPARISON: [facility], CR, XR TOE LT MIN 2V, 02/20/2022, 10:44. [facility], CR, XR FOOT LT MIN 3V, 05/24/2022, 12:32. FINDINGS: Image quality: Excellent. Bones: Patient is status post prior amputation of left foot at the level of MTP joints. There is marrow edema involving 1st metatarsal head with dorsal cortical disruption at 1st metatarsal head and heterogeneous contrast enhancement in this area concerning for osteomyelitis involving 1st metatarsal head. No other area of abnormal marrow signal or abnormal intraosseous enhancement is seen. Soft tissues: There is suggestion of ulceration involving dorsal and lateral aspect of forefoot at the level of 5th toe stump. Significant soft tissue edema and swelling surrounding dorsal and lateral aspect of midfoot and forefoot is seen. No discrete drainable fluid collection is noted. Significant edema within visualized plantar foot muscles is seen concerning for myositis. No discrete intramuscular fluid collection is noted. Visualized extensor and flexor tendons are grossly intact. IMPRESSION: 1. Prior amputation of forefoot at the level of MTP joints. Marrow signal abnormality over dorsal aspect of 1st metatarsal head with subtle dorsal cortical disruption and show abnormal enhancement concerning for osteomyelitis involving 1st metatarsal head. No other area of abnormal marrow signal is seen. No fracture or dislocation. 2. Ulceration and cellulitis over dorsal and lateral aspect of forefoot stump adjacent to 5th metatarsal head. No discrete drainable abscess collection is seen. 3. Suggestion of myositis involving plantar foot muscles without discrete intramuscular fluid collection or enhancing mass. Dictated by: Juice Parson M.D. on 07/17/2022 at 8:49 Approved by: Juice Parson M.D. on 07/17/2022 at 8:55
== END ==
PROVIDERS: Family Provider Student in an Organized Health Care Education/Training Program; PCP Student in an Organized Health Care Education/Training Program; Referring Provider Surgery; Visit Provider Surgery
DX: T81.31XA Disruption of external operation (surgical) wound, not elsewhere classified, initial encounter (principal); Z89.432 Acquired absence of left foot; L97.529 Non-pressure chronic ulcer of other part of left foot with unspecified severity; L03.116 Cellulitis of left lower limb
CPT/HCPCS: 73720

== ENCOUNTER → 2022-07-20 11:13 | Outpatient (CLI) | payer MEDICARE, OTHER, SELFPAY ==
[2019-05-05 20:05] VITALS: BMI 35.2
== END ==
PROVIDERS: Family Provider Student in an Organized Health Care Education/Training Program; PCP Student in an Organized Health Care Education/Training Program; Referring Provider Student in an Organized Health Care Education/Training Program; Visit Provider Surgery
DX: E11.628 Type 2 diabetes mellitus with other skin complications (principal); T87.81 Dehiscence of amputation stump; R60.0 Localized edema
CPT/HCPCS: 99213

== ENCOUNTER → 2022-07-27 10:56 | Outpatient (CLI) | payer MEDICARE, OTHER, SELFPAY ==
[2019-05-05 20:05] VITALS: BMI 35.2
== END ==
PROVIDERS: Family Provider Student in an Organized Health Care Education/Training Program; PCP Student in an Organized Health Care Education/Training Program; Referring Provider Student in an Organized Health Care Education/Training Program; Visit Provider Surgery
DX: E11.628 Type 2 diabetes mellitus with other skin complications (principal); T87.89 Other complications of amputation stump; E11.40 Type 2 diabetes mellitus with diabetic neuropathy, unspecified
CPT/HCPCS: 99213

== ENCOUNTER → 2022-08-01 13:36 | Outpatient (CLI) | payer MEDICARE, OTHER, SELFPAY ==
[2019-05-05 20:05] VITALS: BMI 35.2
[2022-08-01 14:57] LABS: BUN Creatinine Ratio 30.3 (6-22); Blood Urea Nitrogen 30 mg/dL (9-20); Carbon Dioxide 31 mmol/L (22-32); Chloride 99 mmol/L (98-107); Estimated Glomerular Filt Rate > 60 mL/min (>60); Glucose 152 mg/dL (80-110); HEMOLYSIS < 15 (0-50); Sodium 138 mmol/L (137-145)
[2022-08-01 15:02] LABS: Potassium 5.8 mmol/L (3.4-5.1)
== END ==
PROVIDERS: Family Provider Student in an Organized Health Care Education/Training Program; PCP Student in an Organized Health Care Education/Training Program; Referring Provider Internal Medicine Infectious Disease; Visit Provider Internal Medicine Infectious Disease
DX: E87.5 Hyperkalemia (principal)
CPT/HCPCS: 36415; 80048

== ENCOUNTER → 2022-08-03 16:10 | Outpatient (CLI) | payer MEDICARE, OTHER, SELFPAY ==
[2019-05-05 20:05] VITALS: BMI 35.2
== END ==
PROVIDERS: Family Provider Student in an Organized Health Care Education/Training Program; PCP Student in an Organized Health Care Education/Training Program; Referring Provider Student in an Organized Health Care Education/Training Program; Visit Provider Surgery
DX: T81.31XD Disruption of external operation (surgical) wound, not elsewhere classified, subsequent encounter (principal); T87.9 Unspecified complications of amputation stump; L08.9 Local infection of the skin and subcutaneous tissue, unspecified; L03.116 Cellulitis of left lower limb
CPT/HCPCS: 99212; 99213

== ENCOUNTER → 2022-08-16 09:38 | Outpatient (CLI) | payer MEDICARE, OTHER, SELFPAY ==
[2019-05-05 20:05] VITALS: BMI 35.2
[2022-08-16 11:56] LABS: BUN Creatinine Ratio 33.7 (6-22); Blood Urea Nitrogen 30 mg/dL (9-20); Calcium 8.1 mg/dL (8.4-10.2); Carbon Dioxide 31 mmol/L (22-32); Chloride 98 mmol/L (98-107); Estimated Glomerular Filt Rate > 60 mL/min (>60); Glucose 307 mg/dL (80-110); HEMOLYSIS < 15 (0-50); Potassium 5.4 mmol/L (3.4-5.1); Sodium 138 mmol/L (137-145)
[2022-08-18 08:40] LABS: Fructosamine 343 umol/L (0-285)
== END ==
PROVIDERS: Family Provider Student in an Organized Health Care Education/Training Program; PCP Student in an Organized Health Care Education/Training Program; Referring Provider Student in an Organized Health Care Education/Training Program; Visit Provider Student in an Organized Health Care Education/Training Program
DX: E11.42 Type 2 diabetes mellitus with diabetic polyneuropathy (principal); E87.5 Hyperkalemia
CPT/HCPCS: 36415; 80048; 82985

== ENCOUNTER → 2022-11-21 12:06 | Outpatient (CLI) | payer MEDICARE, OTHER, SELFPAY ==
[2019-05-05 20:05] VITALS: BMI 35.2
--- NOTE | 2022-11-21 12:08 | DI.ECHO.S_ITS ---
[facility] +---------+ : : [address] : [address] : : : : [phone] : : : : Phone: [phone]---------+ Echocardiogram Report + + :Name: SOCO HORAN Study Date: 11/21/2022 Height: 70 in : :[facility] ReadingLocation: Weight: 248 lb : : Gender: Male BSA: 2.3 m2 : :: 1945 Age: 77 yrs BP: 141/88 mmHg: :Reason For Study: CHRONIC SYSTOLIC HEAT FAILURE : :Ordering Physician: CIARAN, : :REINALDO Performed By: Rosaura Castillo : :Referring: REINALDO APARICIO : + + Interpretation Summary 1) Normal left ventricular size with severely reduced systolic function (EF 25-30%). 2) Grossly, normal right ventricular size wiith mildly reduced function. 3) There is mild aortic regurgitation. 4) Compared to the Echo done 12/21/2021, no significant change. Procedure: A two-dimensional transthoracic echocardiogram with color flow and Doppler was performed. The study quality was technically difficult. Comparison is made with the echocardiogram of 12/21/2021. The patient was in sinus rhythm with heart rates between 65-71 bpm during the exam. Left Ventricle: The left ventricle is normal in size. There is mild concentric left ventricular hypertrophy. The ejection fraction is estimated to be 25-30%. There is severe global hypokinesis of the left ventricle. Right Ventricle: The right ventricle is normal size. Right ventricular systolic function is mildly reduced. Atria: The left atrium is borderline dilated. Right atrial size is normal. There is no Doppler evidence for an interatrial shunt. Mitral Valve: The mitral valve is normal in structure and function. There is mild mitral regurgitation. Aortic Valve: The aortic valve opens well. There is no aortic valve stenosis. There is mild aortic regurgitation. Tricuspid Valve: The tricuspid valve is normal in structure and function. There is mild tricuspid regurgitation. Pulmonary artery pressures cannot be estimated because of the lack of a measurable TR jet velocity. Pulmonic Valve: The pulmonic valve is not well seen, but is grossly normal. There is no pulmonic valvular regurgitation. Great Vessels: The aortic root is normal size. The dimensions of the ascending aorta are normal. The IVC is dilated (diameter is greater than 2.1 cm) yet it collapses greater than 50% with a sniff. This suggests a right atrial pressure of 8 mm Hg. Pericardium/ Pleura There is no pericardial effusion. There is no pleural effusion. MMode/2D Measurements & Calculations LVIDd: 5.4 cm LVOT diam: 2.4 cm LVIDs: 4.6 cm Ao root diam: 3.5 cm FS: 13.8 % asc Aorta Diam: 3.6 cm EPSS: 1.9 cm IVSd: 1.0 cm LVPWd: 1.2 cm LV cronin. diameter/BSA (cm/m^2): 2.3 LV sys. diameter/BSA (cm/m^2): 2.0 LA A2 area: 23.0 cm2 RA long axis: 5.2 cm LA A4 area: 24.9 cm2 RA area: 19.8 cm2 LA length (vol): 6.3 cm RA vol: 64.0 ml LA vol: 76.9 ml RA : 28.0 ml/m2 LA vol index: 33.6 ml/m2 IVC diam: 2.1 cm RVD1 (basal): 3.8 cm TAPSE: 1.6 cm Doppler Measurements & Calculations Ao V2 max: 150.9 cm/sec LVOT Max Satinder: 64.2 cm/sec Ao V2 mean: 103.9 cm/sec LV V1 max P.7 mmHg Ao max P.1 mmHg LV V1 VTI: 13.0 cm Ao mean P.8 mmHg OBDULIA(I,D): 1.8 cm2 Ao V2 VTI: 32.4 cm OBDULIA(V,D): 1.9 cm2 sev ratio: 0.40 OBDULIA indexed to BSA (cm^2/m^2): 0.77 MV E max satinder: 86.2 cm/sec PA V2 max: 82.9 cm/sec MV A max satinder: 63.6 cm/sec PA V2 mean: 57.2 cm/sec MV E/A: 1.4 PA mean P.5 mmHg Med Peak E' Satinder: 5.8 cm/sec E/E' med: 14.8 Lat Peak E' Satinder: 8.0 cm/sec E/E' lat: 10.8 E/e' average: 12.8 MV dec time: 0.19 sec MVA(VTI): 2.2 cm2 MV V2 mean: 59.8 cm/sec SV(LVOT): 56.8 ml MV mean P.7 mmHg MV V2 VTI: 26.3 cm Reading Physician:05:28 PM
[2022-11-21 13:02] LABS: Alanine Aminotransferase 24 IU/L (<50); Albumin 4.1 g/dL (3.5-5.0); Albumin Globulin Ratio 1.5 (1.0-2.8); Alkaline Phosphatase 75 U/L (38-126); Aspartate Aminotransferase 24 IU/L (17-59); BUN Creatinine Ratio 31.6 (6-22); Bilirubin Total 0.6 mg/dL (0.2-1.3); Blood Urea Nitrogen 30 mg/dL (9-20); Calcium 8.6 mg/dL (8.4-10.2); Carbon Dioxide 31 mmol/L (22-32); Chloride 98 mmol/L (98-107); Cholesterol 135 mg/dL (140-199); Estimated Glomerular Filt Rate > 60 mL/min (>60); Globulin 2.7 g/dL (1.7-4.1); Glucose 215 mg/dL (80-110); HDL Cholesterol 32 mg/dL (40-60); HEMOLYSIS < 15 (0-50); LDL Cholesterol Calculated 67 mg/dL (<100); Potassium 4.9 mmol/L (3.4-5.1); Sodium 139 mmol/L (137-145); Total Protein 6.8 g/dL (6.3-8.2); Triglycerides 179 mg/dL (35-150)
[2022-11-21 16:42] LABS: Vitamin D 25 Hydroxy (D3) 34.6 ng/mL (30.0-100.0)
[2022-11-21 17:35] LABS: Creatinine Urine Random 109.4 mg/dL
[2022-11-21 17:52] LABS: Microalbumi Creatinin Ratio Ur 122.4 ug/mg CR (<30); Microalbumin Urine Random 13.4 mg/dL (0-1.6)
[2022-11-22 03:15] LABS: Labcorp Hemoglobin (Hb) A1c 8.3 % (4.8-5.6)
== END ==
PROVIDERS: Family Provider Student in an Organized Health Care Education/Training Program; PCP Student in an Organized Health Care Education/Training Program; Referring Provider Internal Medicine Cardiovascular Disease; Visit Provider Internal Medicine Cardiovascular Disease
DX: I08.3 Combined rheumatic disorders of mitral, aortic and tricuspid valves; I50.22 Chronic systolic (congestive) heart failure; E55.9 Vitamin D deficiency, unspecified; E11.42 Type 2 diabetes mellitus with diabetic polyneuropathy; E11.69 Type 2 diabetes mellitus with other specified complication; E78.5 Hyperlipidemia, unspecified; I10 Essential (primary) hypertension; R80.9 Proteinuria, unspecified; Z79.4 Long term (current) use of insulin
CPT/HCPCS: 36415; 80053; 80061; 82043; 82306; 82570; 83036; C8929; Q9957

== ENCOUNTER → 2022-11-30 10:09 | Outpatient (CLI) | payer MEDICARE, OTHER, SELFPAY ==
[2019-05-05 20:05] VITALS: BMI 35.2
[2022-11-30 11:59] LABS: Add Manual Diff / Slide Review NO; Basophils Absolute Auto 0 /uL (0-100); Basophils Percent Auto 0.7 % (0-2); Eosinophils Absolute Auto 200 /uL (0-450); Eosinophils Percent Auto 3.2 % (2-4); Hematocrit 39.9 % (41-53); Hemoglobin 13.3 g/dL (13.5-17.5); Lymphocytes Absolute Auto 1200 /uL (1100-4500); Lymphocytes Percent Auto 18.5 % (25-40); Mean Corpuscular HGB Conc 33.3 % (30-36); Mean Corpuscular Hemoglobin 31.2 PG (26-34); Mean Corpuscular Volume 93.9 fL (80-100); Monocytes Absolute Auto 700 /uL (0-900); Monocytes Percent Auto 11.2 % (3-14); Neutrophils Absolute Auto 4300 /uL (1500-7000); Neutrophils Percent Auto 66.4 % (50-75); Platelet Count 244 X10^3/uL (150-400); Red Blood Cell Count 4.25 X10^6/uL (4.5-5.9); Red Cell Distribution Width 13.9 % (11.6-14.8); White Blood Cell Count 6.5 X10^3/uL (4.5-11.0)
[2022-11-30 12:16] LABS: BUN Creatinine Ratio 37.2 (6-22); Blood Urea Nitrogen 32 mg/dL (9-20); Calcium 8.5 mg/dL (8.4-10.2); Carbon Dioxide 31 mmol/L (22-32); Chloride 101 mmol/L (98-107); Estimated Glomerular Filt Rate > 60 mL/min (>60); Glucose 224 mg/dL (80-110); HEMOLYSIS < 15 (0-50); Sodium 137 mmol/L (137-145)
== END ==
PROVIDERS: Family Provider Student in an Organized Health Care Education/Training Program; PCP Pediatrics; Referring Provider Pediatrics; Visit Provider Pediatrics
DX: E11.42 Type 2 diabetes mellitus with diabetic polyneuropathy (principal); E66.01 Morbid (severe) obesity due to excess calories; H81.10 Benign paroxysmal vertigo, unspecified ear; I10 Essential (primary) hypertension
CPT/HCPCS: 36415; 80048; 85025

== ENCOUNTER → 2023-04-26 14:28 | Outpatient (CLI) | payer MEDICARE, OTHER, SELFPAY ==
[2023-04-26 14:19] VITALS: BMI 35.2
[2023-04-26 15:35] LABS: Hemoglobin A1C% w Est Avg Glu 8.8 % (4.0-6.0)
[2023-04-26 15:39] LABS: Aspartate Aminotransferase 23 IU/L (17-59); BUN Creatinine Ratio 31.6 (6-22); Blood Urea Nitrogen 31 mg/dL (9-20); Calcium 9.5 mg/dL (8.4-10.2); Carbon Dioxide 30 mmol/L (22-32); Chloride 100 mmol/L (98-107); Cholesterol 99 mg/dL (140-199); Estimated Glomerular Filt Rate > 60 mL/min (>60); Glucose 140 mg/dL (80-110); HDL Cholesterol 35 mg/dL (40-60); HEMOLYSIS < 15 (0-50); LDL Cholesterol Calculated 44 mg/dL (<100); Sodium 139 mmol/L (137-145); Triglycerides 102 mg/dL (35-150)
[2023-04-26 15:54] LABS: Potassium 5.7 mmol/L (3.4-5.1)
== END ==
PROVIDERS: Family Provider Student in an Organized Health Care Education/Training Program; PCP Internal Medicine; Referring Provider Internal Medicine; Visit Provider Internal Medicine
DX: E11.42 Type 2 diabetes mellitus with diabetic polyneuropathy (principal); I10 Essential (primary) hypertension; E78.2 Mixed hyperlipidemia
CPT/HCPCS: 36415; 80048; 80061; 83036; 84450

== ENCOUNTER 2023-05-17 18:07 | Observation (INO) | payer MEDICARE, OTHER, SELFPAY ==
[2023-04-26 14:19] VITALS: BMI 35.2
[2023-05-17] VITALS (14 sets, daily range): BP systolic 146–200; BP diastolic 81–104; PULSE 70–79; RESP 18–72; TEMP 36.1–36.8; O2SAT 88–97; BMI 382.4
--- NOTE | 2023-05-17 18:51 | DI.RAD.S_ITS ---
PROCEDURE: XR CHEST 1V INDICATIONS: dyspnea TECHNIQUE: One view of the chest was acquired. COMPARISON: [facility], CR, XR CHEST 2V, 11/17/2020, 11:07. FINDINGS: Surgical changes and devices: Median sternotomy wires. Lungs and pleura: Prominent pulmonary markings. Small left pleural effusion.. Mediastinum: Mediastinal contours appear normal. Heart size is enlarged. Bones and chest wall: No suspicious bony lesions. Overlying soft tissues appear unremarkable. IMPRESSION: Cardiomegaly and prominent interstitial markings with a left pleural effusion. Findings are concerning for congestive heart failure, recommend clinical correlation. Dictated by: Lito Hart M.D. on 05/17/2023 at 19:23 Approved by: Lito Hart M.D. on 05/17/2023 at 19:24
--- NOTE | 2023-05-17 18:52 | ED_ITS ---
HPI - SOB/Dyspnea General Chief Complaint: Shortness of Breath/Dyspnea Stated Complaint: SOB Rapid Heartrate Time Seen by Provider: 05/17/23 18:18 Source: patient and family Mode of arrival: Wheelchair Limitations: no limitations History of Present Illness HPI Narrative: 77-year-old male with history of coronary artery disease status post CABG, insulin-dependent diabetes presents by private vehicle from home for 1 day of shortness of breath. Patient states that he will intermittently feel short of breath but this morning he woke up feeling much worse than usual. Dyspnea worse when lying flat or exerting himself. States he is noticed recent weight gain and he is ?the heaviest I have ever been?. Spouse at bedside states that he believes that the patient's abdomen is slightly more distended than usual. Patient found to be saturating in the mid 80s in triage, taken to ED bed and placed on oxygen. Patient denies history of CHF, denies use of lasix, however previous echo from 11/2022 shows EF 25-30% and Entresto is listed as a home medication. Of note, triage reports chest pain, patient denies this to me on my evaluation. Related Data Home Medications Medication Instructions Recorded Confirmed aspirin 81 mg tablet,delayed 81 mg PO QDAY ##0 01/09/17 05/17/23 release cyanocobalamin (vitamin B-12) 1,000 mcg PO DAILY 10/13/21 05/17/23 1,000 mcg capsule diphenhydramine 25 2 tab PO BEDTIME PRN Sleep 07/25/22 05/17/23 mg-acetaminophen 500 mg tablet (Tylenol PM Extra Strength) metoprolol succinate 200 mg 300 mg PO DAILY 11/27/22 05/17/23 tablet,extended release 24 hr alpha lipoic acid 200 mg capsule 400 mg PO BID 04/26/23 05/17/23 sacubitril 49 mg-valsartan 51 mg 1 tab PO BID 04/26/23 05/17/23 tablet (Entresto) Previous Rx's Medication Instructions Recorded BD Ultra Fine [place] #100 ea 10/13/19 metformin 1,000 mg tablet 1,000 mg PO BID #180 tabs 07/25/22 glipizide 10 mg tablet, extended See Rx Instructions .Route 12/04/22 release 24 hr .COMPLEX #180 tabs atorvastatin 40 mg tablet (Lipitor) 40 mg PO QPM #90 tabs 12/13/22 gabapentin 300 mg capsule 300 mg PO TID #270 caps 01/18/23 insulin glargine 100 unit/mL (3 50 unit (0.5 mL) SUBCUT DAILY #45 04/23/23 mL) subcutaneous pen (Lantus mL Solostar U-100 Insulin) citalopram 20 mg tablet 20 mg PO DAILY #90 tabs 05/07/23 Allergies Allergy/AdvReac Type Severity Reaction Status Date / Time Iodinated Contrast Media Allergy Severe ANAPHALAXIS Verified 04/26/23 11:26 [IODINATED CONTRAST- ORAL AND IV DYE] levofloxacin [LEVOFLOXACIN] Allergy Unknown Hives Verified 04/26/23 11:26 lisinopril [LISINOPRIL] Allergy Unknown COUGH Verified 04/26/23 11:26 Review of Systems Review of Systems Narrative: Negative except as noted above Patient History Medical History Polyneuropathy, unspecified Gait instability Depression, major, recurrent Coronary artery disease Severe obesity (BMI 35.0-35.9 with comorbidity) Mixed hyperlipidemia Peripheral arterial disease 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 Systolic CHF, chronic Type 2 diabetes mellitus with diabetic polyneuropathy Diverticulosis Microalbuminuria Essential hypertension Psoriasis (~1968) Hepatitis (~1966) Vertigo (~2017) Cataracts, bilateral (~2017) Surgical History Hx of toe surgery (06/20/19) 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) Hx of cholecystectomy Hx of appendectomy Anesthesia History of laminectomy History of angioplasty (~1985) S/P CABG (coronary artery bypass graft) (~2007) Family History Father Cancer Mother Heart disease Grandfather Heart disease Grandmother Heart disease Grandfather Heart disease Grandmother Heart disease Social History household members: spouse Smoking Status: Former smoker alcohol intake: current substance use type: does not use Smoking Status: Former smoker alcohol intake frequency: a few times a month Substance Use Type: does not use Exam Initial Vital Signs Initial Vital Signs: Vital Signs Temperature 98.2 F 05/17/23 18:17 Pulse Rate 70 05/17/23 18:17 Respiratory Rate 72 H 05/17/23 18:17 Blood Pressure 200/82 H 05/17/23 18:17 Pulse Oximetry 88 L 05/17/23 18:17 Oxygen Delivery Method Room Air 05/17/23 18:17 Const: Awake, alert, mild distress, sitting upright in bed Cardiac: regular rate, regular rhythm RESP: Mild increased work of breathing, inspiratory crackles bilaterally, on supplemental nasal cannula GI: Atraumatic, soft, nontender, nondistended, no rebound, no guarding MSK: Atraumatic, full range of motion, pulses equal Skin: Warm, Dry, intact, no rashes Neuro: AO x3, CN II-XII grossly intact, moves all extremities Psych: affect normal, mood normal, not suicidal, not homicidal Course Orders Ordered: Acetaminophen (Acetaminophen 325 Mg Tablet) 650 mg PO Q6H PRN PRN Reason: fever, mild pain Acetaminophen (Acetaminophen 325 Mg Tablet) 975 mg PO BEDTIME PRN PRN Reason: Insomnia Aspirin (Aspirin Ec 81 Mg Tablet) 81 mg PO DAILY YOANDY Last Admin: 05/18/23 01:00 Dose: 81 mg Documented By: CT Atorvastatin Calcium (Atorvastatin 20 Mg Tablet) 40 mg PO QPM YOANDY Citalopram Hydrobromide (Citalopram 10 Mg Tablet) 20 mg PO DAILY YOANDY Cyanocobalamin (Cyanocobalamin (Vitamin B-12) 500 Mcg Tablet) 1,000 mcg PO DAILY YOANDY Diphenhydramine HCl (Diphenhydramine 25 Mg Tablet) 50 mg PO BEDTIME PRN PRN Reason: Insomnia Furosemide (Furosemide 20 Mg/2 Ml Vial) 20 mg IV DAILY YOANDY Gabapentin (Gabapentin 300 Mg Capsule) 300 mg PO TID YOANDY Hydralazine HCl (Hydralazine 20 Mg/Ml Vial) 10 mg IV Q6HR PRN PRN Reason: Hypertension Last Admin: 05/18/23 00:10 Dose: 10 mg Documented By: CT Insulin Glargine (Insulin Glargine 100 Unit/Ml 3ml Pen) 50 unit SUBCUT DAILY YOANDY Metformin HCl (Metformin Hcl 500 Mg Tablet) 1,000 mg PO BID YOANDY Metoprolol Succinate (Metoprolol Er 50 Mg Tablet) 200 mg PO DAILY YOANDY Metoprolol Succinate (Metoprolol Er 50 Mg Tablet) 100 mg PO BEDTIME YOANDY Naloxone HCl (Naloxone 0.4 Mg/Ml Vial) 0.2 mg IV Q2MIN PRN PRN Reason: Opiate Reversal (Alpha Lipoic Acid (200 Mg Capsule)) 400 mg PO BID YOANDY (Sacubitril- Valsartan [Entresto] 49-51 Mg Tablet) 1 tab PO BID YOANDY Last Admin: 05/18/23 01:00 Dose: Not Given Documented By: CT Discontinued Medications Furosemide (Furosemide 40 Mg/4 Ml Vial) 40 mg IV NOW ONE Stop: 05/17/23 19:52 Last Admin: 05/17/23 20:02 Dose: 40 mg Documented By: GC Magnesium Sulfate (Magnesium Sulfate) 2 gm in 50 mls @ 25 mls/hr IV NOW ONE Stop: 05/17/23 23:42 Last Admin: 05/17/23 23:59 Dose: Not Given Documented By: CT Magnesium Sulfate (Magnesium Sulfate) 2 gm in 50 mls @ 25 mls/hr IV NOW ONE Stop: 05/18/23 01:43 Last Infusion: 05/18/23 02:15 Dose: Infused Documented By: CT Co-signed By: MS Admin: 05/18/23 00:14 Dose: 25 mls/hr Documented By: CT Co-signed By: SR Metoprolol Succinate (Metoprolol Er 50 Mg Tablet) 300 mg PO DAILY YOANDY Non-Formulary Medication (Diphenhydramine-Acetaminophen [Tylenol Pm Extra Strength]) 2 tab PO BEDTIME PRN PRN Reason: Sleep Vital Signs Vital signs: Vital Signs - 8 hr 05/17/23 18:17 Temperature 98.2 F Pulse Rate 70 Respiratory Rate 72 H Blood Pressure 200/82 H Pulse Oximetry 88 L Oxygen Delivery Method Room Air MDM - SOB/Dyspnea Differential Diagnosis Differential diagnosis: Likely acute exacerbation of chronic obstructive airways disease, congestive heart failure and community acquired pneumonia Lab Data 05/17/23 18:55 05/18/23 04:15 Labs: Lab Results 05/17/23 Range/Units 18:55 WBC 12.8 H (4.5-11.0) X10^3/uL RBC 4.23 L (4.5-5.9) X10^6/uL Hgb 13.5 (13.5-17.5) g/dL Hct 40.0 L (41-53) % MCV 94.6 (80-100) fL MCH 31.9 (26-34) PG MCHC 33.7 (30-36) % RDW 14.1 (11.6-14.8) % Plt Count 253 (150-400) X10^3/uL Neut % (Auto) 83.8 H (50-75) % Lymph % (Auto) 7.1 L (25-40) % [place] % (Auto) 8.2 (3-14) % Eos % (Auto) 0.5 L (2-4) % Baso % (Auto) 0.4 (0-2) % Neut # (Auto) 15626 H (7303-7531) /uL Lymph # (Auto) 900 L (8173-7554) /uL [place] # (Auto) 1000 H (0-900) /uL Eos # (Auto) 100 (0-450) /uL Baso # (Auto) 100 (0-100) /uL PT 13.4 H (9.4-12.5) SECONDS INR 1.2 (0.9-1.3) APTT 30 (25.1-36.5) SECONDS Sodium 138 (137-145) mmol/L Potassium 4.4 (3.4-5.1) mmol/L Chloride 102 (98-107) mmol/L Carbon Dioxide 30 (22-32) mmol/L BUN 30 H (9-20) mg/dL Creatinine 0.76 (0.66-1.25) mg/dL Estimated GFR > 60 (>60) mL/min BUN/Creatinine Ratio 39.5 H (6-22) Glucose 257 H (80-110) mg/dL Calcium 8.6 (8.4-10.2) mg/dL Magnesium 1.5 L (1.6-2.3) mg/dL Total Bilirubin 0.9 (0.2-1.3) mg/dL AST 27 (17-59) IU/L ALT 22 (<50) IU/L Alkaline Phosphatase 72 (38-126) U/L Total Creatine Kinase 71 (55-170) U/L Troponin I 0.013 (0.01-0.034) ng/mL NT-Pro-B Natriuret Pep 3230 H (<450) pg/mL Total Protein 7.0 (6.3-8.2) g/dL Albumin 4.0 (3.5-5.0) g/dL Globulin 3.0 (1.7-4.1) g/dL Albumin/Globulin Ratio 1.3 (1.0-2.8) ECG Data Attestation: I personally reviewed and interpreted this ECG as follows: Interpretation: Normal sinus rhythm at a rate of 78 beats per minute. Left axis deviation, PVCs in bigeminy pattern. no STEMI MDM Narrative Medical decision making narrative: Gradually worsening shortness of breath, found to be hypoxic on room air. Patient denies history of congestive heart failure, however he does appear to be clinically volume overloaded, in addition record review shows that patient does have history of heart failure in his supposed to be on Entresto. Patient placed on nasal cannula, labs and imaging to be obtained. Initial chest x-ray does seem to show pleural effusion, cardiomegaly, pulmonary edema. 40 mg IV Lasix ordered. Patient sitting upright in bed, however states he feels much more comfortable and has diuresed while in the emergency department. EKG normal sinus rhythm with PVCs in bigeminy pattern. Patient has WBC count 12.8, uncertain significance. Sodium, potassium, within normal limits. BNP 3230, troponin 0.013. He continues to require supplemental oxygen, when removed from nasal cannula saturations dropped to 86%. Patient to be admitted for further management and treatment as well as additional diuresis. Discharge Plan Departure Patient Disposition: Admitted as Observation Clinical Impression: Acute hypoxemic respiratory failure, Cardiac volume overload Admit Date/Time: 05/17/23 21:20 Admit Provider: Rosalina Nieves
[2023-05-17 19:16] LABS: Add Manual Diff / Slide Review NO; Basophils Absolute Auto 100 /uL (0-100); Basophils Percent Auto 0.4 % (0-2); Eosinophils Absolute Auto 100 /uL (0-450); Eosinophils Percent Auto 0.5 % (2-4); Hemoglobin 13.5 g/dL (13.5-17.5); Lymphocytes Absolute Auto 900 /uL (1100-4500); Lymphocytes Percent Auto 7.1 % (25-40); Mean Corpuscular HGB Conc 33.7 % (30-36); Mean Corpuscular Hemoglobin 31.9 PG (26-34); Mean Corpuscular Volume 94.6 fL (80-100); Monocytes Absolute Auto 1000 /uL (0-900); Monocytes Percent Auto 8.2 % (3-14); Neutrophils Absolute Auto 10700 /uL (1500-7000); Neutrophils Percent Auto 83.8 % (50-75); Platelet Count 253 X10^3/uL (150-400); Red Blood Cell Count 4.23 X10^6/uL (4.5-5.9); Red Cell Distribution Width 14.1 % (11.6-14.8); White Blood Cell Count 12.8 X10^3/uL (4.5-11.0)
--- NOTE | 2023-05-17 19:20 | PC.NURSE ---
PT complains of worsening SOB the past 2x days, unable to ambulate without SOB, cannot lay flat. He had a 5-10 second episode of chest pain this morning, denies chest pain since.
[2023-05-17 19:24] LABS: INR 1.2 (0.9-1.3); Prothrombin Time 13.4 SECONDS (9.4-12.5)
[2023-05-17 19:26] LABS: PTT Partial Thromboplastin Tim 30 SECONDS (25.1-36.5)
[2023-05-17 19:31] LABS: Alanine Aminotransferase 22 IU/L (<50); Albumin Globulin Ratio 1.3 (1.0-2.8); Alkaline Phosphatase 72 U/L (38-126); Aspartate Aminotransferase 27 IU/L (17-59); BUN Creatinine Ratio 39.5 (6-22); Bilirubin Total 0.9 mg/dL (0.2-1.3); Blood Urea Nitrogen 30 mg/dL (9-20); Calcium 8.6 mg/dL (8.4-10.2); Carbon Dioxide 30 mmol/L (22-32); Chloride 102 mmol/L (98-107); Creatine Kinase 71 U/L (55-170); Estimated Glomerular Filt Rate > 60 mL/min (>60); Glucose 257 mg/dL (80-110); HEMOLYSIS < 15 (0-50); Potassium 4.4 mmol/L (3.4-5.1); Sodium 138 mmol/L (137-145)
[2023-05-17 19:42] LABS: NT-proBNP (BNP-Adult 18+) 3230 pg/mL (<450); Troponin I 0.013 ng/mL (0.01-0.034)
[2023-05-17 19:54] LABS: Magnesium 1.5 mg/dL (1.6-2.3)
[2023-05-17] MEDS: FUROSEMIDE 40 MG/4 ML VIAL IV (20:02)
[2023-05-18] VITALS (14 sets, daily range): BP systolic 130–185; BP diastolic 67–88; PULSE 65–86; RESP 18–22; TEMP 36.1–37; O2SAT 94–97
[2023-05-18] MEDS: HYDRALAZINE 20 MG/ML VIAL 10 MG IV (00:10)
[2023-05-18] MEDS: MAGNESIUM SULFATE 2 GM/50 ML PIGGYBACK IV (00:14)
--- NOTE | 2023-05-18 00:16 | P.HP_ITS ---
History of Present Illness History of Present Illness Date Patient Seen: 05/18/23 Time Patient Seen: 00:16 Date of Onset of Symptoms: 05/17/23 Chief complaint: SOB Rapid Heartrate Narrative: 77 year old male with history of CAD/CABG, CHF with EF 25% 12/01, diabetes, HTN, HLD here with worsening dyspnea. He was noted to have an elevated BNP and an oxygen requirement for sat of 82%. When asked about his diet he stated he was a saltaholic and has been eating lots of salty foods to include maltese food etc. He states he had 30 seconds of central chest tightness yesterday but troponin was negatsto as prescribedive and EKG without acute ischemic changes. He has not had any since that time. He denies cld symptoms or fever and states he coughs up clear sticky phlegm each and every day and this not not new. He further denies nausea, vomiting, diarrhea or other GI complaints. He is maintained on CPAP at night for STEFFI. He received Lasix 40 mg IV in the ED with improvement of his symptoms. CXR revealed pulmonary congestion. His blood sugar was in the 250 range and his other labs were reasonable. His BP was high on arrival and on arrival to the floor but was a bit lower in ED after lasix. He states he has had CHF for about a year and does take his Entresto as prescribed. 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 Systolic CHF, chronic Type 2 diabetes mellitus with diabetic polyneuropathy Diverticulosis Microalbuminuria Essential hypertension Psoriasis (~1968) Hepatitis (~1966) Vertigo (~2017) Cataracts, bilateral (~2018) Surgical History Hx of toe surgery (06/20/19) 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) Hx of cholecystectomy Hx of appendectomy Anesthesia History of laminectomy History of angioplasty (~1985) S/P CABG (coronary artery bypass graft) (~2007) Family History Father Cancer Mother Heart disease Grandfather Heart disease Grandmother Heart disease Grandfather Heart disease Grandmother Heart disease Social History household members: spouse Smoking Status: Former smoker alcohol intake: current substance use type: does not use Meds Home Medications and Allergies Home Medications Medication Instructions Recorded Confirmed Type aspirin 81 mg tablet,delayed 81 mg PO QDAY ##0 01/09/17 05/17/23 History release BD Ultra Fine [place] #100 ea 10/13/19 05/17/23 Rx cyanocobalamin (vitamin B-12) 1,000 mcg PO DAILY 10/13/21 05/17/23 History 1,000 mcg capsule diphenhydramine 25 2 tab PO BEDTIME PRN Sleep 07/25/22 05/17/23 History mg-acetaminophen 500 mg tablet (Tylenol PM Extra Strength) metformin 1,000 mg tablet 1,000 mg PO BID #180 tabs 07/25/22 05/17/23 Rx metoprolol succinate 200 mg 300 mg PO DAILY 11/27/22 05/17/23 History tablet,extended release 24 hr glipizide 10 mg tablet, extended See Rx Instructions .Route 12/04/22 05/17/23 Rx release 24 hr .COMPLEX #180 tabs atorvastatin 40 mg tablet (Lipitor) 40 mg PO QPM #90 tabs 12/13/22 05/17/23 Rx gabapentin 300 mg capsule 300 mg PO TID #270 caps 01/18/23 05/17/23 Rx insulin glargine 100 unit/mL (3 50 unit (0.5 mL) SUBCUT DAILY #45 04/23/23 05/17/23 Rx mL) subcutaneous pen (Lantus mL Solostar U-100 Insulin) alpha lipoic acid 200 mg capsule 400 mg PO BID 04/26/23 05/17/23 History sacubitril 49 mg-valsartan 51 mg 1 tab PO BID 04/26/23 05/17/23 History tablet (Entresto) citalopram 20 mg tablet 20 mg PO DAILY #90 tabs 05/07/23 05/17/23 Rx Allergies Allergy/AdvReac Type Severity Reaction Status Date / Time Iodinated Contrast Media Allergy Severe ANAPHALAXIS Verified 04/26/23 11:26 [IODINATED CONTRAST- ORAL AND IV DYE] levofloxacin [LEVOFLOXACIN] Allergy Unknown Hives Verified 04/26/23 11:26 lisinopril [LISINOPRIL] Allergy Unknown COUGH Verified 04/26/23 11:26 Review of Systems Constitutional Constitutional: Reports daytime sleepiness and Denies fever(s) Cardiovascular Comments: +brief CP, +dyspnea Respiratory Comments: Cough, +phlegm uses CPAP Gastrointestinal Comments: no nausea, vomiting or diarrhea Musculoskeletal Comments: difficulty walking Integumentary/Breasts Comments: no rash Exam Vital Signs (past 8 hours): - 05/17/23 18:17 05/17/23 18:32 05/17/23 18:33 Temperature 98.2 F Pulse Rate 70 79 Respiratory Rate 72 H 28 H Blood Pressure 200/82 H Pulse Oximetry 88 L 88 L 91 Oxygen Delivery Method Room Air Room Air Nasal Cannula Oxygen Flow Rate 2 05/17/23 19:00 05/17/23 19:20 05/17/23 19:20 Temperature Pulse Rate 79 77 Respiratory Rate 35 H 34 H Blood Pressure 176/92 H Pulse Oximetry 94 93 Oxygen Delivery Method Nasal Cannula Oxygen Flow Rate 2 05/17/23 19:30 05/17/23 19:30 05/17/23 20:00 Temperature Pulse Rate 76 Respiratory Rate 30 H Blood Pressure 164/81 H 163/100 H Pulse Oximetry 92 Oxygen Delivery Method Oxygen Flow Rate 05/17/23 20:00 05/17/23 20:31 05/17/23 20:31 Temperature Pulse Rate 77 76 Respiratory Rate 22 32 H Blood Pressure 185/83 H Pulse Oximetry 93 92 Oxygen Delivery Method Oxygen Flow Rate 05/17/23 21:00 05/17/23 21:01 05/17/23 21:01 Temperature Pulse Rate 76 75 Respiratory Rate 24 22 Blood Pressure 159/104 H Pulse Oximetry 92 92 Oxygen Delivery Method Oxygen Flow Rate 05/17/23 21:30 05/17/23 21:30 05/17/23 22:00 Temperature Pulse Rate 79 77 Respiratory Rate 28 H 28 H Blood Pressure 168/81 H Pulse Oximetry 96 96 Oxygen Delivery Method Oxygen Flow Rate 05/17/23 22:01 05/17/23 22:01 05/17/23 22:45 Temperature 97.0 F L Pulse Rate 78 74 Respiratory Rate 26 H 18 Blood Pressure 187/92 H 146/97 H Pulse Oximetry 97 95 Oxygen Delivery Method Oxygen Flow Rate 3 05/18/23 00:00 Temperature 97.7 F Pulse Rate 77 Respiratory Rate 18 Blood Pressure 185/88 H Pulse Oximetry 95 Oxygen Delivery Method Oxygen Flow Rate 3 Oxygen Delivery Method Nasal Cannula Oxygen Flow Rate 3 Narrative Exam Narrative: Rosalina Nieves MD in [facility] is evaluating Alex Dunn in [place] using all aspects of audio and video telemedicine with nursing assistance Const General: cooperative, comfortable and No acute distress Nutritional Appearance: obese Orientation: alert, awake and oriented x3 HENMT Head: normal to inspection Nose: external nose normal Eyes Sclera: sclerae normal Neck Neck: normal visual inspection and trachea midline Chest Chest: normal inspection of the chest Resp Effort & Inspection: normal respiratory effort and able to speak in complete sentences Auscultation: other (coarse) Cardio Rate: regular rate Rhythm: regular rhythm GI Palpation: soft Auscultation: normal bowel sounds Skin Rashes: no rashes Neuro Cognition: normal cognition Speech: speech normal Motor: muscle tone normal throughout Extrem Left upper extremity: normal to inspection Right lower extremity: normal to inspection Left lower extremity: foot Details: edema and other (missing all his left sided toes) Psych Appearance: grossly normal Mental Status: mental status grossly normal Speech and Movement: speech and movement normal Mood: congruent mood Objective Imaging Chest x-ray: Radiologist's impression: pulmonary congestion Labs 05/17/23 18:55 05/17/23 18:55 Labs: Laboratory Results - last 24 hr 05/17/23 18:55 WBC 12.8 H RBC 4.23 L Hgb 13.5 Hct 40.0 L MCV 94.6 MCH 31.9 MCHC 33.7 RDW 14.1 Plt Count 253 Neut % (Auto) 83.8 H Lymph % (Auto) 7.1 L [place] % (Auto) 8.2 Eos % (Auto) 0.5 L Baso % (Auto) 0.4 Neut # (Auto) 28679 H Lymph # (Auto) 900 L [place] # (Auto) 1000 H Eos # (Auto) 100 Baso # (Auto) 100 PT 13.4 H INR 1.2 APTT 30 Sodium 138 Potassium 4.4 Chloride 102 Carbon Dioxide 30 BUN 30 H Creatinine 0.76 Estimated GFR > 60 BUN/Creatinine Ratio 39.5 H Glucose 257 H Calcium 8.6 Magnesium 1.5 L Total Bilirubin 0.9 AST 27 ALT 22 Alkaline Phosphatase 72 Total Creatine Kinase 71 Troponin I 0.013 NT-Pro-B Natriuret Pep 3230 H Total Protein 7.0 Albumin 4.0 Globulin 3.0 Albumin/Globulin Ratio 1.3 Assessment & Plan Assessment and plan (1) CHF (congestive heart failure): Qualifiers: Heart failure type: systolic Status: Acute (2) Severe obesity (BMI 35.0-35.9 with comorbidity): Status: Acute (3) Coronary artery disease: Qualifiers: Associated angina: without angina Coronary Disease-Associated Artery/Lesion type: bypass graft [place] vs. 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: Status: Acute (5) Essential hypertension: Status: Chronic Plan Acute exacerbation of CHF Lasix 40 mg IV daily continue entresto repeat ECHO to assess EF discussed importance of salt restriction, daily weight Oxygen to maintain sat of 90% Hypertension ordered usual medications added prn hydralazine suspect that BP will improve with diuresis Hypomagnesemia repleting Diabetes ordered usual metformin and lantus wonder if he would be a candidate for jardiance CAD troponin in negative will order repeat for AM but no CP or obvious signs of ischemia STEFFI ordered CPAP
[2023-05-18] MEDS: ASPIRIN EC 81 MG TABLET PO ×2 (01:00→08:17)
[2023-05-18 05:07] LABS: Blood Urea Nitrogen 27 mg/dL (9-20); Calcium 8.8 mg/dL (8.4-10.2); Carbon Dioxide 31 mmol/L (22-32); Chloride 101 mmol/L (98-107); Estimated Glomerular Filt Rate > 60 mL/min (>60); Glucose 176 mg/dL (80-110); HEMOLYSIS < 15 (0-50); Phosphorous 2.7 mg/dL (2.3-3.7); Sodium 139 mmol/L (137-145)
[2023-05-18 05:17] LABS: Troponin I 0.032 ng/mL (0.01-0.034)
--- NOTE | 2023-05-18 07:52 | P.HP_ITS ---
History of Present Illness History of Present Illness Date Patient Seen: 05/18/23 Date of Onset of Symptoms: 05/17/23 Chief complaint: SOB Rapid Heartrate Narrative: From overnight physician: 77 year old male with history of CAD/CABG, CHF with EF 25% 12/01, diabetes, HTN, HLD here with worsening dyspnea. He was noted to have an elevated BNP and an oxygen requirement for sat of 82%. When asked about his diet he stated he was a saltaholic and has been eating lots of salty foods to include wolof food etc. He states he had 30 seconds of central chest tightness yesterday but troponin was negatsto as prescribedive and EKG without acute ischemic changes. He has not had any since that time. He denies cld symptoms or fever and states he coughs up clear sticky phlegm each and every day and this not not new. He further denies nausea, vomiting, diarrhea or other GI complaints. He is maintained on CPAP at night for STEFFI. He received Lasix 40 mg IV in the ED with improvement of his symptoms. CXR revealed pulmonary congestion. His blood sugar was in the 250 range and his other labs were reasonable. His BP was high on arrival and on arrival to the floor but was a bit lower in ED after lasix. He states he has had CHF for about a year and does take his Entresto as prescribed. 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 Systolic CHF, chronic Type 2 diabetes mellitus with diabetic polyneuropathy Diverticulosis Microalbuminuria Essential hypertension Psoriasis (~1968) Hepatitis (~1966) Vertigo (~2017) Cataracts, bilateral (~2017) Surgical History Hx of toe surgery (06/20/19) 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) Hx of cholecystectomy Hx of appendectomy Anesthesia History of laminectomy History of angioplasty (~1985) S/P CABG (coronary artery bypass graft) (~2007) Family History Father Cancer Mother Heart disease Grandfather Heart disease Grandmother Heart disease Grandfather Heart disease Grandmother Heart disease Social History household members: spouse Smoking Status: Former smoker alcohol intake: current substance use type: does not use Meds Home Medications and Allergies Home Medications Medication Instructions Recorded Confirmed Type aspirin 81 mg tablet,delayed 81 mg PO QDAY ##0 01/09/17 05/17/23 History release BD Ultra Fine Marrero #100 ea 10/13/19 05/17/23 Rx cyanocobalamin (vitamin B-12) 1,000 mcg PO DAILY 10/13/21 05/17/23 History 1,000 mcg capsule diphenhydramine 25 2 tab PO BEDTIME PRN Sleep 07/25/22 05/17/23 History mg-acetaminophen 500 mg tablet (Tylenol PM Extra Strength) metformin 1,000 mg tablet 1,000 mg PO BID #180 tabs 07/25/22 05/17/23 Rx metoprolol succinate 200 mg 300 mg PO DAILY 11/27/22 05/17/23 History tablet,extended release 24 hr glipizide 10 mg tablet, extended See Rx Instructions .Route 12/04/22 05/17/23 Rx release 24 hr .COMPLEX #180 tabs atorvastatin 40 mg tablet (Lipitor) 40 mg PO QPM #90 tabs 12/13/22 05/17/23 Rx gabapentin 300 mg capsule 300 mg PO TID #270 caps 01/18/23 05/17/23 Rx insulin glargine 100 unit/mL (3 50 unit (0.5 mL) SUBCUT DAILY #45 04/23/23 05/17/23 Rx mL) subcutaneous pen (Lantus mL Solostar U-100 Insulin) alpha lipoic acid 200 mg capsule 400 mg PO BID 04/26/23 05/17/23 History sacubitril 49 mg-valsartan 51 mg 1 tab PO BID 04/26/23 05/17/23 History tablet (Entresto) citalopram 20 mg tablet 20 mg PO DAILY #90 tabs 05/07/23 05/17/23 Rx Allergies Allergy/AdvReac Type Severity Reaction Status Date / Time Iodinated Contrast Media Allergy Severe ANAPHALAXIS Verified 04/26/23 11:26 [IODINATED CONTRAST- ORAL AND IV DYE] levofloxacin [LEVOFLOXACIN] Allergy Unknown Hives Verified 04/26/23 11:26 lisinopril [LISINOPRIL] Allergy Unknown COUGH Verified 04/26/23 11:26 Review of Systems Constitutional Constitutional: Reports daytime sleepiness and Denies fever(s) Cardiovascular Comments: +brief CP, +dyspnea Respiratory Comments: Cough, +phlegm uses CPAP Gastrointestinal Comments: no nausea, vomiting or diarrhea Musculoskeletal Comments: difficulty walking Integumentary/Breasts Comments: no rash Exam Vital Signs (past 8 hours): - 05/18/23 00:00 05/18/23 00:10 05/18/23 00:30 Temperature 97.7 F Pulse Rate 77 77 74 Respiratory Rate 18 Blood Pressure 185/88 H 185/88 H 142/78 H Pulse Oximetry 95 Oxygen Flow Rate 3 05/18/23 01:07 05/18/23 04:00 Temperature 97.7 F Pulse Rate 77 77 Respiratory Rate 18 18 Blood Pressure 153/85 H Pulse Oximetry 94 95 Oxygen Flow Rate 3 Oxygen Delivery Method Nasal Cannula Oxygen Flow Rate 3 Const General: cooperative, comfortable and No acute distress Nutritional Appearance: obese Orientation: alert, awake and oriented x3 HENMT Head: normal to inspection Nose: external nose normal Eyes Sclera: sclerae normal Neck Neck: normal visual inspection and trachea midline Chest Chest: normal inspection of the chest Resp Effort & Inspection: normal respiratory effort and able to speak in complete sentences Auscultation: other (coarse) Cardio Rate: regular rate Rhythm: regular rhythm GI Palpation: soft Auscultation: normal bowel sounds Skin Rashes: no rashes Neuro Cognition: normal cognition Speech: speech normal Motor: muscle tone normal throughout Extrem Left upper extremity: normal to inspection Right lower extremity: normal to inspection Left lower extremity: foot Details: edema and other (missing all his left sided toes) Psych Appearance: grossly normal Mental Status: mental status grossly normal Speech and Movement: speech and movement normal Mood: congruent mood Objective Labs 05/17/23 18:55 05/18/23 04:15 Labs: Laboratory Results - last 24 hr 05/17/23 05/18/23 18:55 04:15 WBC 12.8 H RBC 4.23 L Hgb 13.5 Hct 40.0 L MCV 94.6 MCH 31.9 MCHC 33.7 RDW 14.1 Plt Count 253 Neut % (Auto) 83.8 H Lymph % (Auto) 7.1 L [place] % (Auto) 8.2 Eos % (Auto) 0.5 L Baso % (Auto) 0.4 Neut # (Auto) 45740 H Lymph # (Auto) 900 L [place] # (Auto) 1000 H Eos # (Auto) 100 Baso # (Auto) 100 PT 13.4 H INR 1.2 APTT 30 Sodium 138 139 Potassium 4.4 4.0 Chloride 102 101 Carbon Dioxide 30 31 BUN 30 H 27 H Creatinine 0.76 0.75 Estimated GFR > 60 > 60 BUN/Creatinine Ratio 39.5 H 36.0 H Glucose 257 H 176 H Calcium 8.6 8.8 Phosphorus 2.7 Magnesium 1.5 L Total Bilirubin 0.9 AST 27 ALT 22 Alkaline Phosphatase 72 Total Creatine Kinase 71 Troponin I 0.013 0.032 NT-Pro-B Natriuret Pep 3230 H Total Protein 7.0 Albumin 4.0 Globulin 3.0 Albumin/Globulin Ratio 1.3 Assessment & Plan Assessment & Plan narrative: # hypoxic resp failure 2/2 acute CHF exacerbation vs COPD exacerbation smoked 2 ppd for 20 years in quit in 1979', very little air movement on auscultation and patient notes productive cough Lasix 40 mg IV daily continue entresto repeat ECHO with improved EF from 25% to 30-35%, mostly unchanged from prior echo discussed importance of salt restriction, daily weight Oxygen to maintain sat of 90%, currently on 2L NC start prednisone 40mg x5 days and duonebs in case this is COPD exac # Hypertension ordered usual medications added prn hydralazine # Hypomagnesemia repleting # Diabetes ordered usual metformin and lantus wonder if he would be a candidate for jardiance # CAD trop neg x2 # STEFFI ordered CPAP Dispo: Pending improvement in O2 needs. 1-2 days.
--- NOTE | 2023-05-18 08:13 | DI.ECHO.S_ITS ---
Version: 1 Study ID: [id number] [place] [address] Name: SOCO HORAN Study Date: 05/18/2023, 11: 18 AM : 1945 BP: 153 / 85 mmHg Gender: Male Height: 70 in Age: 77 Years Weight: 266 lb BSA: 2.36 mA? Referring: ASHLEY JUAREZ Clinician: Dianne Ojeda Reason For Study: SOB History: Summary Statements This is a technically difficult study characterized by limited endocardial visualization. It was enhanced with Definity echo contrast. Normal sinus rhythm. Normal LV size and mildly increased wall thickness. Severely reduced EF estimated at 30-35%. EPSS is 1.5 cm consistent with cardiomyopathy. Stage II diastolic dysfunction. Normal chamber sizes. No significant valvular abnormalities. Compared to prior study obtained November 21, 2022 no significant changes have occurred. Procedure: A two-dimensional transthoracic echocardiogram with color flow and Doppler was performed. The study quality was technically difficult. Comparison is made with the echocardiogram of 11-21-22. A contrast injection of Definity was performed to improve assessment of LV function. The injection was performed through an intravenous line in the left arm. The heart rate ranged between 68-75 bpm during the study. Left Ventricle: The left ventricle is mildly dilated. There is mild concentric left ventricular hypertrophy. The ejection fraction is estimated to be 30-35%. Diastolic parameters suggest a pseudonormalization pattern, consistent with probable elevated filling pressures. Right Ventricle: The right ventricle is grossly normal size. Right ventricular systolic function is mildly reduced. Atria: The left atrial size is normal. Right atrial size is normal. The interatrial septum grossly appears intact with no obvious evidence for an atrial septal defect. Mitral Valve: The mitral valve leaflets appear mildly thickened, but open well. The mitral valve leaflets appear to open well. There is trace mitral regurgitation. Aortic Valve: The aortic valve is trileaflet. The aortic valve opens well. No aortic regurgitation is present. Tricuspid Valve: The tricuspid valve is not well visualized. Pulmonic Valve: The pulmonic valve is not well visualized. There is mild pulmonic regurgitation. Great Vessels: The aortic root is borderline dilated. The ascending aorta is mildly enlarged. The aortic arch is normal in size. The IVC is dilated (diameter is greater than 2.1 cm) and it collapses less than 50% with a sniff. This suggests a high right atrial pressure of 15 mm Hg. The IVC is dilated (diameter is greater than 2.1 cm) yet it collapses greater than 50% with a sniff. This suggests a right atrial pressure of 8 mm Hg. Pericardium/ Pleura: There is no pericardial effusion. There is no pleural effusion. 2D and M-Mode Measurements and Calculations LVIDd: 5.5 cm AoV Openin.04 cm LVIDs: 4.6 cm LVOT diam: 2.43 cm IVSd: 1.16 cm Ao root diam: 3.8 cm LVPWd: 1.20 cm asc Aorta Diam: 3.6 cm LV cronin. diameter/BSA (cm/m^2): 2.35 Ao Arch Diam (Prox Trans): 2.28 cm LV sys. diameter/BSA (cm/m^2): 1.96 EPSS: 1.49 cm LA A4 area: 27.6 auto servicer? IVC diam: 3.0 cm LA A2 area: 17.8 auto servicer? RA area: 17.9 auto servicer? LA length (vol): 6.9 cm RA long axis: 5.3 cm LA vol: 60.0 ml RA vol: 51.3 ml LA vol index: 25.5 ml/mA? RA : 21.8 ml/mA? Doppler Measurements and Calculations Ao V2 max: 138.4 cm/sec LVOT Max Satinder: 61.3 cm/sec Ao V2 mean: 102.2 cm/sec LV V1 max P.50 mmHg Ao V2 VTI: 31.9 cm LV V1 VTI: 14.3 cm Ao max P.7 mmHg SV(LVOT): 66.2 ml Ao mean P.5 mmHg OBDULIA(I,D): 2.08 auto servicer? OBDULIA(V,D): 2.06 auto servicer? OBDULIA indexed to BSA (cm^2/m^2): 0.88 sev ratio: 0.45 MV E max satinder: 101.6 cm/sec MV dec time: 0.21 sec MV A max satinder: 44.2 cm/sec MV E/A: 2.30 PA V2 max: 65.6 cm/sec PA mean P.97 mmHg Electronically signed by: Lacy Ac M.D. 05/18/2023, 2: 00 PM
[2023-05-18] MEDS: METFORMIN HCL 500 MG TABLET 1000 MG PO ×2 (08:16→20:19)
[2023-05-18] MEDS: METOPROLOL ER 50 MG TABLET 200 MG PO (08:16)
[2023-05-18] MEDS: FUROSEMIDE 40 MG/4 ML VIAL IV (08:16)
[2023-05-18] MEDS: CITALOPRAM 10 MG TABLET 20 MG PO (08:17)
[2023-05-18] MEDS: GABAPENTIN 300 MG CAPSULE PO ×3 (08:17→20:18)
[2023-05-18] MEDS: CYANOCOBALAMIN (VITAMIN B-12) 500 MCG TABLET 1000 MCG PO (08:17)
[2023-05-18] MEDS: INSULIN GLARGINE 100 UNIT/ML 3ML PEN 50 UNIT SUBCUT (08:18)
[2023-05-18 08:40] LABS: Magnesium 2.2 mg/dL (1.6-2.3)
--- NOTE | 2023-05-18 12:05 | CM.DANOTE ---
Patient is 77 yo male who was admitted on 05/17/23 for SOB/CHF exac. Pt has MARY and [employer]ERICK [employer]OPEZ for insurance and his PCP is Dr. Vipin Loera. EMR was reviewed. Per MD, pt needing diuresis and Echo and likely another 1-2 days before medically stable. SW met bedside with pt and explained role and pt confirms he lives in [place] with /DPOA Salas and both are independent at baseline with ADLs. Pt states he does not use DME for ambulation but he no longer drives and relies on his Salas. Pt denies any hx of HH or SNF but states that he had been feeling unsteady and poor balance for awhile with hx of some falls. SW discussed benefits of outpt PT and HH PT and pt very interested in HH PT at discharge. HH Choice list provided and no preference and CC Samantha kindly made [facility] referral based on vendor calendar. Pt also states that he just had establish care appointment with Dr. Vipin Loera as previously he had Dr. Laughlin and he feels that Dr. Loera will be a good fit for both himself and his . Pt states PCP office has a copy of their DPOA pwk and pt's spouse Salas is his DPOA. Pt uses home CPAP at night and no home oxygen at baseline. Plan: SW to follow for plan of likely d/c home in 1-2 days pending progress of weaning off oxygen and diuresis as well as Echo results and new [facility] referral made but F2F still needed. JOSHUA Linton Discharge Planning/Care Management Advanced directive, confirm from FAMILY Start: 05/17/23 23:08 Freq: Q24H Status: Active Protocol: Document 05/18/23 00:00 CT (Rec: 05/18/23 01:43 CT [id number]) Advance Directive, confirm on record Time 01:43 Person contacted Pt Copy received No CM Discharge Assessment Start: 05/18/23 11:59 Freq: Status: Active Protocol: Document 05/18/23 11:59 BF (Rec: 05/18/23 12:05 BF [id number]) Discharge Planning Assessment Assigned Tuberculosis Specialist JOSHUA [place] DPOA/Assigned Designee Name Spouse Salas Moreno Contact Information [phone] Advance Directives? Yes Advance Directives on File No History Provided By Patient,Medical Record Has Patient been admitted in last 30 No days? Prior Living Arrangements House Household Members spouse Type of transporation used prior to Relies on Others admit Comment pt no longer drives, relies on his spouse Independent with ADL's Yes Is patient alert and oriented? Yes Caregiver for Another No Patient/Family Preference Home with Home Health Barriers to Discharge No Discharge Plan Home with Home Health Transportation Arrangement spouse can transport home at d /c Referrals Initiated Home Health If patient plan is home with home health Yes : Has signed face to face form been completed? Medicare Choice List Provided Yes Medicare choice list reviewed on patient electronic tablet with SNF/HH Preference [facility] referral made based on vendor calendar Whiteboard Updated in Patient Room with Yes name and ext. # of Tuberculosis Specialist Review Status In Process Please Provide Date Initial DC 05/18/23 Assessment Was Performed Next Review Type Continued Stay Review
[2023-05-18] MEDS: INSULIN LISPRO 100 UNIT/ML 3ML VIAL SUBCUT ×3 (12:23→20:20)
[2023-05-18] MEDS: predniSONE 20 MG TABLET 40 MG PO (12:23)
[2023-05-18] MEDS: METOPROLOL ER 50 MG TABLET 100 MG PO (20:18)
[2023-05-18] MEDS: ATORVASTATIN 20 MG TABLET 40 MG PO (20:18)
[2023-05-18] MEDS: ALBUTEROL/IPRATROPIUM 3 ML AMPUL INH (20:25)
[2023-05-19] VITALS (13 sets, daily range): BP systolic 104–148; BP diastolic 62–84; PULSE 57–74; RESP 16–18; TEMP 35.3–36.3; O2SAT 92–98
[2023-05-19 04:33] LABS: Add Manual Diff / Slide Review NO; Basophils Absolute Auto 0 /uL (0-100); Basophils Percent Auto 0.4 % (0-2); Eosinophils Absolute Auto 0 /uL (0-450); Eosinophils Percent Auto 0.1 % (2-4); Hematocrit 36.8 % (41-53); Hemoglobin 12.5 g/dL (13.5-17.5); Lymphocytes Absolute Auto 900 /uL (1100-4500); Mean Corpuscular Hemoglobin 31.9 PG (26-34); Mean Corpuscular Volume 93.9 fL (80-100); Monocytes Absolute Auto 700 /uL (0-900); Neutrophils Absolute Auto 6500 /uL (1500-7000); Neutrophils Percent Auto 79.5 % (50-75); Platelet Count 218 X10^3/uL (150-400); Red Blood Cell Count 3.92 X10^6/uL (4.5-5.9); Red Cell Distribution Width 14.1 % (11.6-14.8); White Blood Cell Count 8.1 X10^3/uL (4.5-11.0)
[2023-05-19 04:47] LABS: BUN Creatinine Ratio 44.3 (6-22); Blood Urea Nitrogen 31 mg/dL (9-20); Calcium 8.7 mg/dL (8.4-10.2); Carbon Dioxide 33 mmol/L (22-32); Chloride 99 mmol/L (98-107); Estimated Glomerular Filt Rate > 60 mL/min (>60); Glucose 152 mg/dL (80-110); HEMOLYSIS < 15 (0-50); Potassium 3.8 mmol/L (3.4-5.1); Sodium 136 mmol/L (137-145)
--- NOTE | 2023-05-19 07:12 | PM.PN.1 ---
Subjective Subjective Interval history: 77 yo male w/CAD s/p CABG, CHF wEF 25-30%, DM2, HTN, HLD, remote tobacco dependence (2ppd x 20 yrs) who was admitted w/acute hypoxic respiratory failure d/t Acute on chronic systolic CHF exacerbation, and COPD exacerbation. Patient reports he continues to feel better overall. He is less short of breath. He is feeling a bit stronger. He is continuing to require oxygen and does not use it at baseline. No chest pain. Exam Vital Signs (past 8 hours): - 05/18/23 16:00 05/18/23 20:00 Temperature 97.3 F L 97.0 F L Pulse Rate 65 68 Respiratory Rate 18 19 Blood Pressure 155/82 H 142/82 H Pulse Oximetry 94 97 Oxygen Flow Rate 2 2 Oxygen Delivery Method Nasal Cannula Oxygen Flow Rate 2 Narrative Exam Narrative: GEN: Very pleasant elderly male, Alert and oriented x 3, NAD HEENT:NC, Face symmetric CHEST: Respiratory excursions symmetric, coarse but CTAB CV: RRR, no M/R/G ABD: Soft,, NT/ND, BT present in all 4 quadrants, body habitus limits exam EXTR: warm, well perfused, no C/C, N + to 2+ bilateral lower extremity edema SKIN: warm and dry, no rash NEURO: Alert and oriented x 3, nonfocal Patient did frequently desaturate to 89% while we were conversing. 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 Systolic CHF, chronic Type 2 diabetes mellitus with diabetic polyneuropathy Diverticulosis Microalbuminuria Essential hypertension Psoriasis (~1968) Hepatitis (~1966) Vertigo (~2017) Cataracts, bilateral (~2018) Surgical History Hx of toe surgery (06/20/19) 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 Acute on chronic systolic CHF exacerbation Patient continues to slowly improve. He is still requiring some oxygen which I anticipate he may be able to wean off of before discharge. Echocardiogram revealed improving EF at 25-30% compared with previous echo showing 25%. These results were shared with the patient at his request today. He remains on aspirin, Entresto, Toprol-XL, furosemide 40 mg IV once daily. As his BUN is mildly increasing, we will decrease furosemide from 40-20 mg IV. Continue monitoring labs. I did discuss with him the importance of monitoring his sodium intake as well as fluid. His does most of the cooking. Advised he should discuss reducing sodium further with him. Additionally, encouraged the patient to do daily weights, track them, and contact his PCP or senior facilities manager for weight gain of 3 lb or more in 24 hours or 5 lb or more in 1 week. 2. COPD w/exacerbation Continue prednisone burst. Although his lungs are diminished, he is not actively wheezing. 3. Acute hypoxic resp failure As noted, he does continue to require 2 L of oxygen. Hopefully he will be able to wean off in the next 24 hours. 4. DM2 He remains on Lantus 50 units subQ daily as well as metformin a 1000 mg twice daily. Blood sugars have ranged from 133-269. Continue sliding scale. 5. HTN He remains on Entresto, metoprolol he has as needed hydralazine. Blood pressures are normotensive. 6. HLD Continue atorvastatin. 7. STEFFI Chronic, stable Code status Full Prophy Will add Lovenox. Dispo Home with home health at d/c.
[2023-05-19] MEDS: INSULIN LISPRO 100 UNIT/ML 3ML VIAL SUBCUT ×3 (08:12→17:16)
[2023-05-19] MEDS: INSULIN GLARGINE 100 UNIT/ML 3ML PEN 50 UNIT SUBCUT (08:14)
[2023-05-19] MEDS: METOPROLOL ER 50 MG TABLET 200 MG PO (08:15)
[2023-05-19] MEDS: ASPIRIN EC 81 MG TABLET PO (08:15)
[2023-05-19] MEDS: predniSONE 20 MG TABLET 40 MG PO (08:16)
[2023-05-19] MEDS: CYANOCOBALAMIN (VITAMIN B-12) 500 MCG TABLET 1000 MCG PO (08:16)
[2023-05-19] MEDS: METFORMIN HCL 500 MG TABLET 1000 MG PO ×2 (08:17→21:35)
[2023-05-19] MEDS: CITALOPRAM 10 MG TABLET 20 MG PO (08:17)
[2023-05-19] MEDS: FUROSEMIDE 40 MG/4 ML VIAL IV (08:18)
[2023-05-19] MEDS: GABAPENTIN 300 MG CAPSULE PO ×3 (08:21→21:36)
[2023-05-19] MEDS: ALBUTEROL/IPRATROPIUM 3 ML AMPUL INH ×2 (08:55→19:36)
--- NOTE | 2023-05-19 10:54 | PT.IIE ---
Current Diagnoses Type 2 diabetes mellitus with mild nonproliferative diabetic retinopathy with macular edema, unspecified eye (05/17/23) Morbid (severe) obesity due to excess calories (05/17/23) Essential (primary) hypertension (05/17/23) Atherosclerosis of coronary artery bypass graft(s) without angina pectoris (05/17/23) Heart failure, unspecified (05/17/23) Body mass index [BMI] 35.0-35.9, adult (05/17/23) Surgical History (Last Reviewed 05/18/23 @ 05:45 by Brooklynn Esteban MD) 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) Anesthesia History of angioplasty (~1985) History of laminectomy Hx of appendectomy Hx of cholecystectomy Hx of toe surgery (06/20/19) S/P CABG (coronary artery bypass graft) (~2007) Medical History (Last Reviewed 05/18/23 @ 05:45 by Brooklynn Esteban MD) Cataracts, bilateral (~2017) Coronary artery disease Depression, major, recurrent 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 Diverticulosis Essential hypertension Gait instability Hepatitis (~1966) Microalbuminuria Mixed hyperlipidemia Peripheral arterial disease Polyneuropathy, unspecified Psoriasis (~1968) Severe obesity (BMI 35.0-35.9 with comorbidity) Systolic CHF, chronic Type 2 diabetes mellitus with diabetic polyneuropathy Vertigo (~2017) Physical Therapy Inpatient Evaluation/Re-Eval M1 PT/OT-IP Prior Functional Status Start: 05/19/23 13:52 Freq: NEEDED Status: Active Protocol: Document 05/19/23 10:54 AB (Rec: 05/19/23 14:13 AB [email or web address]) Medical Review Prior Functional Status Medical History Reviewed Yes Communication able to make needs known Mobility and Gait pt stated that he was independent with all mobilities and ambulation wihtout AD; pt stated that he has balance issues Social History Household Members spouse Living Arrangements House Number of Floors (Floors) Two Floors Number of Stairs To Enter/Railing? 2 steps to enter the house with wall on the L side pt usually stays on main level of the house but pt has 14 steps R rail descending to get to the shower due to current master bedroom shower is under renovation Home Environment Standard Height Toilet,Walk in Shower Home Equipment Shower Seat without Backrest, Hand Held Shower M2 PT-IP Current Condition Start: 05/19/23 13:52 Freq: NEEDED Status: Active Protocol: Document 05/19/23 10:54 AB (Rec: 05/19/23 14:13 AB [email or web address]) Physical Therapy Current Condition Current Condition Evaluation Date 05/19/23 Treatment Diagnosis CHF; difficulty in walking Onset Date 05/17/23 M3 PT-IP Subjective Start: 05/19/23 13:52 Freq: NEEDED Status: Active Protocol: Document 05/19/23 10:54 AB (Rec: 05/19/23 14:13 AB [email or web address]) Subjective Physical Therapy Visit Type Type Initial Evaluation Visit Start Time 10:54 Visit Stop Time 11:50 Total Visit Minutes 56 Number of LABEL PINKER Visits 0 Physical Therapy Visit Comments Patient Comments agreeable to do PT M4 PT-IP Mobility and Gait Start: 05/19/23 13:52 Freq: NEEDED Status: Active Protocol: Document 05/19/23 10:54 AB (Rec: 05/19/23 14:13 AB [email or web address]) PT-Bed Mobility Assessment Supine to Sit Supine to Sit Standby Assistance Sit to Supine Sit to Supine Standby Assistance PT-Transfer Assessment Sit to and From Stand Sit to and from Stand Contact Guard Assistance,1 Person Assistance,Use of Upper Extremities Equipment Transfer Assistive Device None,Gait Belt,Straight Cane,4 Wheeled Walker Orthotic/Prosthetic Devices or Brace: No Transfers Transfer Destination Bed,Chair,Toilet Transfer Technique ambulated Transfer Ability Level of Assist Standby Assistance,Contact Guard Assistance,Minimal Assistance,1 Person Assistance ,Use of Upper Extremities Comments Mobility Comments pt is sitting on the chair and agreeable to do PT. Obtained PLOF and home set up from pt. O2 sat with 2L/min O2: 97% but with (+) SOB. completed sit to stand CGA and ambulated in room requiring CGA to min A and max cues to slow down. (+ ) LOB x 2 requiring min A for recovery. pt is impulsive and cued for safety. pt sat on EOB and completed sit<>supine SBA. O2 sat decrease to 91% during bed mobility. increased to 94% after seated rest and cued for deep breathing. pt agreed to ambulate in the hallway. educated on slowing down and safety. ambulated ~ 200 ft without AD min A and cues with (+) LOB x 2. pt sat back on his chair. educated pt on safety and use of AD. Assessed ambulation using 4WW. educated pt use of 4WW/brakes . pt ambulated in room using 4WW ~ 40 ft SBA to CGA and cues to slowly and 4WW placement. pt sat on chair and rested. assessed ambulation using SPC. educated on use of SPC. pt completed sit to stand CGA and ambulation in room using SPC min A and cues with (+) LOB x 2. pt sat back on the chair. informed pt that a FWW/4WW will be recommended for ambulation and at this time and pt agreed. pt requested to use the toilet and ambulated to the toilet without AD CGA to min A. completed toileting SBA. ambulated towards the sink CGA to min A and completed handwashing. pt tends to reach /hold on to mendez for support. pt ambulated to the chair CGA to min A without AD. positioned pt on the chair. call light and table placed within reach. O2 sat at 2L/min O2 at 97% with 2L/min O2 Gait Assessment Gait Gait Assistance Required: Standby Assistance,Contact Guard Assist,Minimum Assistance Distance (Feet) 200 Able to Maintain Weight Bearing Status Yes During Gait Assistive Devices Assistive Device None,Gait Belt,Straight Cane,4 Wheeled Walker Orthotic/Prosthetic Devices or Brace: No Gait Deviations General Gait Pattern Ataxic,Decreased Stride Length ,Decreased Feet Clearance, Narrow Based Gait,Step-to Gait Factors Limiting Gait Function Factors Limiting Gait Function Decreased Activity Tolerance, Decreased Strength,Limited Range of Motion,Poor Balance, Poor Safety Awareness, Respiratory Distress PT-Balance Assessment Sitting Balance and Reactions Static Sitting Balance Ability Normal Dynamic Sitting Balance Ability Good Standing Balance and Reactions Static Standing Balance Ability Fair Dynamic Standing Balance Ability Poor Device Used without AD M5 PT-IP Objective Assessments Start: 05/19/23 13:52 Freq: NEEDED Status: Active Protocol: Document 05/19/23 10:54 AB (Rec: 05/19/23 14:13 AB [email or web address]) Orientation Orientation/Cognition Level of Alertness Alert Orientation Name,Situation Language Function Ability No Deficits Noted Safety Awareness Decreased Safety Awareness Memory Description No Deficits Noted Gross Range of Motion Lower Extremity ROM Assessment Within Functional Limits Strength Lower Extremity Strength Assessment Within Functional Limits Coordination Assessment Gross Coordination Gross Coordination WNL M6 PT-IP Treatment Start: 05/19/23 13:52 Freq: NEEDED Status: Active Protocol: Document 05/19/23 10:54 AB (Rec: 05/19/23 14:13 AB [email or web address]) Physical Therapy Treatment Education Education Provided Safety M7 PT-IP Assessment and Plan Start: 05/19/23 13:52 Freq: NEEDED Status: Active Protocol: Document 05/19/23 10:54 AB (Rec: 05/19/23 14:13 AB [email or web address]) PT Summary Assessment and Plan Potential Rehabilitation Potential Fair Status of Condition at Evaluation Evolving Summary Impairments Pain,ROM,Strength,Balance, Coordination,Sensation,Tone, Cognition,Bed Mobility, Transfers,Gait,Activity Tolerance Assessment Summary pt is a 77 y/o M who is admitted for respiratory failure due to CHF. pt requiring CGA to min A with ambulation without AD with (+) LOB x 4. pt is impulsive. Recommending use of FWW/ 4WW at this time for safety. will continue with PT in hospital to improve overall strength, standing balance and ambulation training. pt plans to go home and spouse to assist him. pt will need outpt PT to improve activity tolerance, standing balance and ambulation to decrease risk of falls. Goals Bed Mobility Goal Independent Transfer Goal Independent,Four Wheeled Walker Gait Goal Independent,Four Wheel Walker Gait Distance 300 Other Goals improve ambulation using LRAD ~ 300 ft mod I up/down 2 steps L wall support SBA up/down 14 steps L rail ascending SBA Days to Meet Goals 10 Frequency of Treatment Frequency Of Treatment Once a Day Treatment Plan Physical Therapy Treatment Plan Bed Mobility Training,Transfer Training,Gait Training, Therapeutic Exercise,Balance Retraining,Post Op Education, Discharge Planning,Hot or Cold Pack,Neuromuscular Re-ed, Coordination Retraining,Manual Therapy Precautions Other Precautions falls; O2 sat Recommendations To Nursing Amount of Assist Needed 1 Person Assist Discharge Recommendations PT Discharge Recommendations Home with 01/01 Assist Available,Outpatient PT Equipment Needed for Home Before FWW/4WW Discharge Transportation Needs at Discharge Private Vehicle
--- NOTE | 2023-05-19 15:26 | CM.DPC ---
DCP HH Planning: Per MD, pt remains on oxygen and dieuretics and not yet stable for discharge home but anticipate another 1-2 days. Per PT, pt was able to ambulate but impulsive and unsteady with balance and recommending HH vs outpt PT. SW met bedside with pt and discussed recommendation of PT after discharge and pt confirms his preference is HH PT to start before transitioning to outpt PT as he feels below baseline and fatigues quickly. CHERYL provided [facility] brochure based on discussion with pt yesterday and vendor calendar and pt very appreciative. F2F and HH orders completed but not yet faxed to [facility]. Plan: SW to follow closely for plan of d/c home via spouse POV and to fax [facility] F2F, HH orders, and d/c summary at discharge. JOSHUA Linton
--- NOTE | 2023-05-19 19:11 | PC.NURSE ---
Medication Pt. reports taking Alpha-Lipoic Acid along with Gabapentin. Discussed medication request with Dr. Olivas and verbal order given to restart home dose of Alpha-Lipoic Acid 400 mg PO BID (patient requests 0900 and 2100). Medication is non-formulary but patient's medications are currently in hospital pharmacy. Inpatient pharmacy needs to enter medication order but they were no longer in-house when order received so order passed along to NOC RN who will call pharmacy in AM to get medication order entered.
[2023-05-19] MEDS: ATORVASTATIN 20 MG TABLET 40 MG PO (21:36)
[2023-05-19] MEDS: METOPROLOL ER 50 MG TABLET PO (22:54)
[2023-05-20] VITALS (11 sets, daily range): BP systolic 108–155; BP diastolic 57–68; PULSE 50–66; RESP 16–17; TEMP 35.7–36.1; O2SAT 92–100
[2023-05-20] MEDS: diphenhydrAMINE 25 MG TABLET 50 MG PO (02:51)
[2023-05-20] MEDS: ACETAMINOPHEN 325 MG TABLET 975 MG PO (02:51)
--- NOTE | 2023-05-20 03:41 | PC.NURSE ---
Addendum entered by Rosy Escobedo R.N. 05/20/23 06:45: Called pharmacy @0141 regarding patient request for home medication Alpha-lipoic acid 400mg BID. Order was declined by pharmacy d/t nutraceutical policy and inability to identify medication. Original Note: shiftman: Notified by ICU nurse that patient's HR was briefly in the 30's which went back to normal sinus rhythm. Patient stated he felt fine. Notified MD Bassett, bedtime dose of Metoprolol decreased. Patient is AxOx4, VSS, O2 94% on 2L O2. Sleeps w/ CPAP machine. Pt states he feels much less short of breath today, experiencing some unsteadyness although he states it is normal for him. Denies pain. Benedryl & Tylenol given at bedtime for insomnia. Bed alarm is on, educated patient to call prior to getting OOB.
[2023-05-20 06:27] LABS: Add Manual Diff / Slide Review NO; Basophils Absolute Auto 0 /uL (0-100); Basophils Percent Auto 0.3 % (0-2); Eosinophils Absolute Auto 100 /uL (0-450); Eosinophils Percent Auto 0.7 % (2-4); Hematocrit 36.8 % (41-53); Hemoglobin 12.4 g/dL (13.5-17.5); Lymphocytes Absolute Auto 1400 /uL (1100-4500); Lymphocytes Percent Auto 15.8 % (25-40); Mean Corpuscular HGB Conc 33.8 % (30-36); Mean Corpuscular Hemoglobin 31.8 PG (26-34); Mean Corpuscular Volume 94.1 fL (80-100); Monocytes Absolute Auto 1200 /uL (0-900); Monocytes Percent Auto 12.7 % (3-14); Neutrophils Absolute Auto 6400 /uL (1500-7000); Neutrophils Percent Auto 70.5 % (50-75); Platelet Count 226 X10^3/uL (150-400); Red Blood Cell Count 3.91 X10^6/uL (4.5-5.9); Red Cell Distribution Width 13.6 % (11.6-14.8); White Blood Cell Count 9.1 X10^3/uL (4.5-11.0)
[2023-05-20 06:34] LABS: BUN Creatinine Ratio 46.1 (6-22); Blood Urea Nitrogen 41 mg/dL (9-20); Calcium 8.7 mg/dL (8.4-10.2); Carbon Dioxide 35 mmol/L (22-32); Chloride 97 mmol/L (98-107); Estimated Glomerular Filt Rate > 60 mL/min (>60); Glucose 128 mg/dL (80-110); HEMOLYSIS < 15 (0-50); Potassium 3.7 mmol/L (3.4-5.1); Sodium 138 mmol/L (137-145)
[2023-05-20] MEDS: CITALOPRAM 10 MG TABLET 20 MG PO (08:36)
[2023-05-20] MEDS: ASPIRIN EC 81 MG TABLET PO (08:36)
[2023-05-20] MEDS: ENOXAPARIN 40 MG/0.4 ML SYRINGE SUBCUT (08:36)
[2023-05-20] MEDS: FUROSEMIDE 40 MG/4 ML VIAL 20 MG IV (08:36)
[2023-05-20] MEDS: CYANOCOBALAMIN (VITAMIN B-12) 500 MCG TABLET 1000 MCG PO (08:36)
[2023-05-20] MEDS: METFORMIN HCL 500 MG TABLET 1000 MG PO (08:37)
[2023-05-20] MEDS: GABAPENTIN 300 MG CAPSULE PO (08:37)
[2023-05-20] MEDS: predniSONE 20 MG TABLET 40 MG PO (08:37)
[2023-05-20] MEDS: METOPROLOL ER 50 MG TABLET 100 MG PO (08:37)
[2023-05-20] MEDS: INSULIN GLARGINE 100 UNIT/ML 3ML PEN 50 UNIT SUBCUT (08:38)
[2023-05-20] MEDS: ALBUTEROL/IPRATROPIUM 3 ML AMPUL INH (09:21)
--- NOTE | 2023-05-20 10:42 | PT.IPTN ---
Current Diagnoses Type 2 diabetes mellitus with mild nonproliferative diabetic retinopathy with macular edema, unspecified eye (05/17/23) Morbid (severe) obesity due to excess calories (05/17/23) Essential (primary) hypertension (05/17/23) Atherosclerosis of coronary artery bypass graft(s) without angina pectoris (05/17/23) Heart failure, unspecified (05/17/23) Body mass index [BMI] 35.0-35.9, adult (05/17/23) Physical Therapy Treatment Note M2 PT-IP Current Condition Start: 05/19/23 13:52 Freq: NEEDED Status: Active Protocol: Document 05/19/23 10:54 AB (Rec: 05/19/23 14:13 AB [email or web address]) Physical Therapy Current Condition Current Condition Evaluation Date 05/19/23 Treatment Diagnosis CHF; difficulty in walking Onset Date 05/17/23 M3 PT-IP Subjective Start: 05/19/23 13:52 Freq: NEEDED Status: Active Protocol: Document 05/20/23 10:22 KS (Rec: 05/20/23 12:15 KS [email or web address]) Subjective Physical Therapy Visit Type Type Treatment Note Visit Start Time 10:22 Visit Stop Time 10:42 Total Visit Minutes 20 Notes Recently off O2 Number of CHOCOLATIER Visits 1 Physical Therapy Visit Comments Patient Comments agreeable to do PT M4 PT-IP Mobility and Gait Start: 05/19/23 13:52 Freq: NEEDED Status: Active Protocol: Document 05/20/23 10:22 KS (Rec: 05/20/23 12:15 KS [id number]) PT-Transfer Assessment Sit to and From Stand Sit to and from Stand Contact Guard Assistance,1 Person Assistance,Use of Upper Extremities Equipment Transfer Assistive Device Gait Belt,Front Wheeled Walker Orthotic/Prosthetic Devices or Brace: No Transfers Transfer Destination Chair Transfer Technique ambulated Transfer Ability Level of Assist Contact Guard Assistance,1 Person Assistance,Use of Upper Extremities Comments Mobility Comments Pt sitting on window bench upon arrival, agreeable to ambulate. Recently removed from supplemental O2. O2 low 90s on RA. Pt ambulated ~60 ft w/ FWW in two bouts w/ O2 checked fpc. Pt does desat to mid 80s during ambulation, but recovers quickly. Educated pt on PLB and energy conservation w/ FWW. Pt does not want FWW from hospital, but agrees to call [place] [employer] (provided information). Pt returned to chair and left w/ all needs in reach. Gait Assessment Gait Gait Assistance Required: Contact Guard Assist,1 Person Assist Distance (Feet) 60 Able to Maintain Weight Bearing Status Yes During Gait Assistive Devices Assistive Device Gait Belt,Front Wheeled Walker Orthotic/Prosthetic Devices or Brace: No Gait Deviations General Gait Pattern Ataxic,Decreased Stride Length ,Decreased Feet Clearance, Narrow Based Gait,Step-to Gait Factors Limiting Gait Function Factors Limiting Gait Function Decreased Activity Tolerance, Decreased Strength,Limited Range of Motion,Poor Balance, Poor Safety Awareness, Respiratory Distress Comments Gait Comments See mobility section for details. PT-Balance Assessment Sitting Balance and Reactions Static Sitting Balance Ability Normal Dynamic Sitting Balance Ability Good Standing Balance and Reactions Static Standing Balance Ability Fair Dynamic Standing Balance Ability Fair Device Used FWW M5 PT-IP Objective Assessments Start: 05/19/23 13:52 Freq: NEEDED Status: Active Protocol: Document 05/19/23 10:54 AB (Rec: 05/19/23 14:13 AB [email or web address]) Orientation Orientation/Cognition Level of Alertness Alert Orientation Name,Situation Language Function Ability No Deficits Noted Safety Awareness Decreased Safety Awareness Memory Description No Deficits Noted Gross Range of Motion Lower Extremity ROM Assessment Within Functional Limits Strength Lower Extremity Strength Assessment Within Functional Limits Coordination Assessment Gross Coordination Gross Coordination WNL M6 PT-IP Treatment Start: 05/19/23 13:52 Freq: NEEDED Status: Active Protocol: Document 05/20/23 10:22 KS (Rec: 05/20/23 12:15 KS [id number]) Physical Therapy Treatment Education Education Provided Safety M7 PT-IP Assessment and Plan Start: 05/19/23 13:52 Freq: NEEDED Status: Active Protocol: Document 05/20/23 10:22 KS (Rec: 05/20/23 12:15 KS [id number]) PT Summary Assessment and Plan Potential Rehabilitation Potential Fair Summary Impairments Pain,ROM,Strength,Balance, Coordination,Sensation,Tone, Cognition,Bed Mobility, Transfers,Gait,Activity Tolerance Progress Towards Goals Progressing Toward Goals,Slow Progress due to Medical Issues ,Slow Progress due to Activity Tolerance Assessment Summary Pt continues to require mostly CGA throughout treatment. Was able to tolerate 60 ft ambulation w/ FWW on RA today. Desats to mid 80s but quickly recovers w/ cues. Recommend pt uses FWW or 4WW at home for energy conservation and balance - pt states his will acquire from [employer], but confirm before d/c. Pt will benefit from outpt PT to improve activity tolerance, standing balance and ambulation to decrease risk of falls. Goals Bed Mobility Goal Independent Transfer Goal Independent,Four Wheeled Walker Gait Goal Independent,Four Wheel Walker Gait Distance 300 Other Goals improve ambulation using LRAD ~ 300 ft mod I up/down 2 steps L wall support SBA up/down 14 steps L rail ascending SBA Days to Meet Goals 10 Frequency of Treatment Frequency Of Treatment Once a Day Treatment Plan Physical Therapy Treatment Plan Bed Mobility Training,Transfer Training,Gait Training, Therapeutic Exercise,Balance Retraining,Post Op Education, Discharge Planning,Hot or Cold Pack,Neuromuscular Re-ed, Coordination Retraining,Manual Therapy Precautions Other Precautions falls; O2 sat Recommendations To Nursing Amount of Assist Needed 1 Person Assist Discharge Recommendations PT Discharge Recommendations Home with 24/ Assist Available,Outpatient PT Equipment Needed for Home Before FWW/4WW Discharge Transportation Needs at Discharge Private Vehicle
[2023-05-20] MEDS: INSULIN LISPRO 100 UNIT/ML 3ML VIAL SUBCUT (12:21)
--- NOTE | 2023-05-20 13:23 | P.DS_ITS ---
History of Present Illness History of Present Illness Chief complaint: SOB Rapid Heartrate Narrative: From overnight physician: 77 year old male with history of CAD/CABG, CHF with EF 25% 12/01, diabetes, HTN, HLD here with worsening dyspnea. He was noted to have an elevated BNP and an oxygen requirement for sat of 82%. When asked about his diet he stated he was a saltaholic and has been eating lots of salty foods to include albanian food etc. He states he had 30 seconds of central chest tightness yesterday but troponin was negatsto as prescribedive and EKG without acute ischemic changes. He has not had any since that time. He denies cld symptoms or fever and states he coughs up clear sticky phlegm each and every day and this not not new. He further denies nausea, vomiting, diarrhea or other GI complaints. He is maintained on CPAP at night for STEFFI. He received Lasix 40 mg IV in the ED with improvement of his symptoms. CXR revealed pulmonary congestion. His blood sugar was in the 250 range and his other labs were reasonable. His BP was high on arrival and on arrival to the floor but was a bit lower in ED after lasix. He states he has had CHF for about a year and does take his Entresto as prescribed. Discharge Providers Provider Date of admission: 05/17/23 21:20 Discharge Date: 05/20/23 Primary care physician: Vipin Loera MD Consults: 05/19/23 08:21 Consult to Physical Therapy Evaluate & Treat Comment: Physician Instructions: Evaluate and Treat 05/19/23 15:30 Consult to Home Health Routine Comment: CHF exac, resp failure, fluid overload Reason For Exam: Set up RN/PT for discharge to home Discharge provider: Stewart Martinez DO Summary Hospital Course Discharge Diagnosis: 1. Acute on chronic systolic CHF exacerbation Patient continues to slowly improve. He is still requiring some oxygen which I anticipate he may be able to wean off of before discharge. Echocardiogram revealed improving EF at 30-35% compared with previous echo showing 25%. These results were shared with the patient at his request today. He remains on aspirin, Entresto, Toprol-XL, furosemide 40 mg IV once daily. As his BUN is mildly increasing, we will decrease furosemide from 40-20 mg IV. Continue monitoring labs. I did discuss with him the importance of monitoring his sodium intake as well as fluid. His does most of the cooking. Advised he should discuss reducing sodium further with him. Additionally, encouraged the patient to do daily weights, track them, and contact his PCP or dragline oiler for weight gain of 2-3 lb or more in 24 hours or 5 lb or more in 1 week. 2. COPD w/exacerbation Continue prednisone burst. Although his lungs are diminished, he is not actively wheezing. Will finish 5 days of 40mg at home. 3. Acute hypoxic resp failure As noted, he does continue to require 2 L of oxygen. Hopefully he will be able to wean off in the next 24 hours. 4. DM2 He remains on Lantus 50 units subQ daily as well as metformin a 1000 mg twice daily. Blood sugars have ranged from 133-269. Continue sliding scale. 5. HTN He remains on Entresto, metoprolol he has as needed hydralazine. Blood pressures are normotensive. 6. HLD Continue atorvastatin. 7. STEFFI Chronic, stable Hospital Course: Admitted for CHF exacerbation from too much salt in diet, vs COPD exacerbation given he noted increased phlegm and congestion. Given IV lasix and steroids and improved. Echo showed improved EF of 30-35% from 25%. He was weaned off O2. Discharged home on po lasix PRN and a couple more days of prednisone. Exam Vital Signs (past 8 hours): - 05/20/23 06:00 05/20/23 08:00 05/20/23 08:37 Temperature 96.2 F L Pulse Rate 55 L 60 Respiratory Rate 16 Blood Pressure 130/57 L 130/57 L Pulse Oximetry 95 96 Oxygen Delivery Method CPAP Oxygen Flow Rate 2 2 05/20/23 09:22 05/20/23 09:32 05/20/23 10:00 Temperature Pulse Rate 57 L Respiratory Rate 16 Blood Pressure Pulse Oximetry 100 96 95 Oxygen Delivery Method Nasal Cannula Room Air Nasal Cannula Oxygen Flow Rate 2 2 05/20/23 12:00 Temperature 97.0 F L Pulse Rate 50 L Respiratory Rate 16 Blood Pressure 108/59 L Pulse Oximetry 92 Oxygen Delivery Method Oxygen Flow Rate 0 Oxygen Delivery Method Nasal Cannula Oxygen Flow Rate 0 Narrative Exam Narrative: GEN: Very pleasant elderly male, Alert and oriented x 3, NAD HEENT:NC, Face symmetric CHEST: Respiratory excursions symmetric, coarse but CTAB CV: RRR, no M/R/G ABD: Soft,, NT/ND, BT present in all 4 quadrants, body habitus limits exam EXTR: warm, well perfused, no C/C, N + to 2+ bilateral lower extremity edema SKIN: warm and dry, no rash NEURO: Alert and oriented x 3, nonfocal Patient did frequently desaturate to 89% while we were conversing. Objective Labs 05/20/23 05:25 05/20/23 05:25 Labs: Laboratory Results - last 24 hr 05/20/23 05:25 WBC 9.1 RBC 3.91 L Hgb 12.4 L Hct 36.8 L MCV 94.1 MCH 31.8 MCHC 33.8 RDW 13.6 Plt Count 226 Neut % (Auto) 70.5 Lymph % (Auto) 15.8 L [place] % (Auto) 12.7 Eos % (Auto) 0.7 L Baso % (Auto) 0.3 Neut # (Auto) 6400 Lymph # (Auto) 1400 [place] # (Auto) 1200 H Eos # (Auto) 100 Baso # (Auto) 0 Sodium 138 Potassium 3.7 Chloride 97 L Carbon Dioxide 35 H BUN 41 H Creatinine 0.89 Estimated GFR > 60 BUN/Creatinine Ratio 46.1 H Glucose 128 H Calcium 8.7 Magnesium 2.0 PFSH Medical History Polyneuropathy, unspecified Gait instability Depression, major, recurrent Coronary artery disease Severe obesity (BMI 35.0-35.9 with comorbidity) Mixed hyperlipidemia Peripheral arterial disease 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 Systolic CHF, chronic Type 2 diabetes mellitus with diabetic polyneuropathy Diverticulosis Microalbuminuria Essential hypertension Psoriasis (~1968) Hepatitis (~1966) Vertigo (~2018) Cataracts, bilateral (~2018) Surgical History Hx of toe surgery (06/20/19) 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 We gave you lasix and prednisone and you improved. I've sent a couple more days of prednisone as well as lasix with specific instructions to your pharmacy. You should weigh yourself daily and avoid salt. Your heart function looked improved on echo from previous. Discharge orders & Medications Prescriptions: New prednisone 20 mg Tablet 40 mg PO DAILY 2 Days Qty: 4 0RF Rx Instructions: start on 05/21 furosemide [Lasix] 40 mg tablet 40 mg PO DAILY PRN (Reason: weight gain) Qty: 30 0RF Rx Instructions: if weight gain is >2-3 lbs in one day, or 5 lbs in one week start taking daily until weight normalizes Continued aspirin 81 MG tablet,delayed release (DR/EC) 81 mg PO QDAY Qty: 0 (DME) BD Ultra Fine [place] 8MM Qty: 100 3RF Rx Instructions: Use to test blood sugars daily or as directed by physcian. glipizide 10 mg tablet extended release 24hr See Rx Instructions .ROUTE .COMPLEX Qty: 180 1RF Dose Instruction: TAKE 1 TABLET BY MOUTH TWICE DAILY Rx Instructions: TAKE 1 TABLET BY MOUTH TWICE DAILY atorvastatin [Lipitor] 40 mg tablet 40 mg PO QPM Qty: 90 1RF gabapentin 300 mg capsule 300 mg PO TID Qty: 270 0RF Lantus Solostar U-100 Insulin 100 unit/mL (3 mL) insulin pen 50 unit SUBCUT DAILY Qty: 45 1RF Hold Instructions: Needs labs citalopram 20 mg tablet 20 mg PO DAILY Qty: 90 3RF alpha lipoic acid 200 mg capsule 400 mg PO BID cyanocobalamin (vitamin B-12) 1,000 mcg capsule 1,000 mcg PO DAILY diphenhydramine-acetaminophen [Tylenol PM Extra Strength] 25-500 mg tablet 2 tab PO BEDTIME PRN (Reason: Sleep) metformin 1,000 mg tablet 1,000 mg PO BID Qty: 180 1RF Hold Instructions: Needs labs metoprolol succinate 200 mg tablet extended release 24 hr 300 mg PO DAILY Rx Instructions: 1 tablet in morning. 0.5 tablets at Bedtime Entresto 49-51 mg tablet 1 tab PO BID Follow up/Referrals: Vipin Loera MD [Primary Care Provider] - 2 Weeks Visit Report/Discharge Packet Stand Alone Forms: Patient Portal/API, Stroke Signs & Symptoms Discharge Data Primary Care Provider: Vipin Loera V Attending Provider: Rosalina Nieves Admit Date/Time: 05/17/23 21:20
--- NOTE | 2023-05-20 13:28 | CM.DPC ---
DCP continued INDUSTRIAL MANAGEMENT TEACHER reviewed EMR. Per provider, patient stable to d/c home today. INDUSTRIAL MANAGEMENT TEACHER entered room and introduced self and role. Pt agreeable with home with [facility]. reports ride home is in [place] and will need 30 mins heads up for him to come to transport home. INDUSTRIAL MANAGEMENT TEACHER updated RN on transport need. INDUSTRIAL MANAGEMENT TEACHER spoke with Tess at [facility]. Confirms they can accept patient. INDUSTRIAL MANAGEMENT TEACHER faxed face to face, order, and d/c summary to [facility]. Plan: home with spouse support today and [facility] to follow. Transport with spouse in POV. CM team will continue to follow as needed. JOSHUA Gautam
--- NOTE | 2023-05-20 14:54 | PC.NURSE ---
Discharge Note Patient A&O, VSS, RA, no complaints of pain/discomfort. Discharge packet reviewed with patient, all questions/concerns addressed. PIV/TELE discontinued. Patient able to dress self and pack all belongings. Patient taken down via wheelchair to POV and reminded to slate picker prescription at preferred pharmacy.
== END 2023-05-20 14:15 | disposition home or self-care (01) ==
LOC: ED 18:18 → AC 21:20
PROVIDERS: Student in an Organized Health Care Education/Training Program; Admitting Provider Internal Medicine; Emergency Provider Emergency Medicine; Family Provider Student in an Organized Health Care Education/Training Program; PCP Internal Medicine; Referring Provider Emergency Medicine; Visit Provider Internal Medicine
DX: J96.01 Acute respiratory failure with hypoxia (principal); I50.21 Acute systolic (congestive) heart failure; I11.0 Hypertensive heart disease with heart failure; J44.1 Chronic obstructive pulmonary disease with (acute) exacerbation; E11.3219 Type 2 diabetes mellitus with mild nonproliferative diabetic retinopathy with macular edema, unspecified eye; E11.42 Type 2 diabetes mellitus with diabetic polyneuropathy; G47.33 Obstructive sleep apnea (adult) (pediatric); E66.01 Morbid (severe) obesity due to excess calories; Z95.1 Presence of aortocoronary bypass graft; Z68.35 Body mass index [BMI] 35.0-35.9, adult; Z79.4 Long term (current) use of insulin; Z79.84 Long term (current) use of oral hypoglycemic drugs; Z87.891 Personal history of nicotine dependence
CPT/HCPCS: 36415; 71045; 80048; 80053; 82550; 82962; 83735; 83880; 84100; 84484; 85025; 85610; 85730; 93005; 93010; 93306; 94618; 94640; 94660; 94760; 96365; 96366; 96372; 96375; 96376; 97116; 97162; 99284; G0378; J0360; J1650; J1815; J1940; J3475; Q9957

== ENCOUNTER → 2023-07-12 09:58 | Outpatient (CLI) | payer MEDICARE, SELFPAY ==
[2023-05-17 23:01] VITALS: BMI 382.4
[2023-07-12 11:30] LABS: BUN Creatinine Ratio 32.2 (6-22); Blood Urea Nitrogen 29 mg/dL (9-20); Calcium 8.8 mg/dL (8.4-10.2); Carbon Dioxide 28 mmol/L (22-32); Chloride 98 mmol/L (98-107); Estimated Glomerular Filt Rate > 60 mL/min (>60); Glucose 310 mg/dL (80-110); HEMOLYSIS 18 (0-50); Potassium 4.9 mmol/L (3.4-5.1); Sodium 136 mmol/L (137-145)
[2023-07-12 12:01] LABS: Hemoglobin A1C% w Est Avg Glu 8.4 % (4.0-6.0)
== END ==
PROVIDERS: PCP Internal Medicine; Referring Provider Internal Medicine; Visit Provider Internal Medicine
DX: I10 Essential (primary) hypertension (principal); E11.42 Type 2 diabetes mellitus with diabetic polyneuropathy
CPT/HCPCS: 36415; 80048; 83036

== ENCOUNTER → 2023-09-13 10:49 | Outpatient (CLI) | payer MEDICARE, SELFPAY ==
[2023-05-17 23:01] VITALS: BMI 382.4
[2023-09-13 11:52] LABS: Hematocrit 40.9 % (41-53); Hemoglobin 13.6 g/dL (13.5-17.5); Mean Corpuscular HGB Conc 33.4 % (30-36); Mean Corpuscular Hemoglobin 32.2 PG (26-34); Mean Corpuscular Volume 96.5 fL (80-100); Platelet Count 267 X10^3/uL (150-400); Red Blood Cell Count 4.23 X10^6/uL (4.5-5.9); Red Cell Distribution Width 13.6 % (11.6-14.8); White Blood Cell Count 7.5 X10^3/uL (4.5-11.0)
[2023-09-13 12:46] LABS: HEMOLYSIS < 15 (0-50); NT-proBNP (BNP-Adult 18+) 351 pg/mL (<450)
[2023-09-13 12:47] LABS: BUN Creatinine Ratio 33.7 (6-22); Blood Urea Nitrogen 35 mg/dL (9-20); Calcium 8.8 mg/dL (8.4-10.2); Carbon Dioxide 31 mmol/L (22-32); Chloride 100 mmol/L (98-107); Estimated Glomerular Filt Rate > 60 mL/min (>60); Glucose 234 mg/dL (80-110); Potassium 4.4 mmol/L (3.4-5.1); Sodium 138 mmol/L (137-145)
== END ==
PROVIDERS: PCP Internal Medicine; Referring Provider Internal Medicine Cardiovascular Disease; Visit Provider Internal Medicine Cardiovascular Disease
DX: I50.22 Chronic systolic (congestive) heart failure (principal)
CPT/HCPCS: 36415; 80048; 83880; 85027

== ENCOUNTER → 2024-03-03 11:44 | Outpatient (CLI) | payer MEDICARE, SELFPAY ==
[2023-05-17 23:01] VITALS: BMI 382.4
[2024-03-03 13:59] LABS: Hemoglobin A1C% w Est Avg Glu 6.9 % (4.0-6.0)
[2024-03-03 14:21] LABS: BUN Creatinine Ratio 28.2 (6-22); Blood Urea Nitrogen 29 mg/dL (9-20); Calcium 8.9 mg/dL (8.4-10.2); Carbon Dioxide 32 mmol/L (22-32); Chloride 99 mmol/L (98-107); Estimated Glomerular Filt Rate > 60 mL/min (>60); Glucose 235 mg/dL (80-110); HEMOLYSIS < 15 (0-50); Potassium 4.6 mmol/L (3.4-5.1); Sodium 138 mmol/L (137-145)
[2024-03-03 14:53] LABS: Prostate Specific Antigen 6.22 ng/mL (0.10-4.00)
== END ==
PROVIDERS: PCP Internal Medicine; Referring Provider Internal Medicine; Visit Provider Internal Medicine
DX: E11.3219 Type 2 diabetes mellitus with mild nonproliferative diabetic retinopathy with macular edema, unspecified eye (principal); N40.0 Benign prostatic hyperplasia without lower urinary tract symptoms; I50.22 Chronic systolic (congestive) heart failure
CPT/HCPCS: 36415; 80048; 83036; 84153

== ENCOUNTER → 2024-03-11 11:08 | Outpatient (CLI) | payer MEDICARE, SELFPAY ==
[2023-05-17 23:01] VITALS: BMI 382.4
[2024-03-11 13:22] LABS: Hematocrit 40.6 % (41-53); Hemoglobin 13.9 g/dL (13.5-17.5); Mean Corpuscular HGB Conc 34.2 % (30-36); Mean Corpuscular Hemoglobin 32.5 PG (26-34); Mean Corpuscular Volume 95.1 fL (80-100); Platelet Count 262 X10^3/uL (150-400); Red Blood Cell Count 4.27 X10^6/uL (4.5-5.9); Red Cell Distribution Width 14.2 % (11.6-14.8); White Blood Cell Count 7.6 X10^3/uL (4.5-11.0)
[2024-03-11 13:44] LABS: BUN Creatinine Ratio 30.7 (6-22); Blood Urea Nitrogen 31 mg/dL (9-20); Calcium 8.9 mg/dL (8.4-10.2); Carbon Dioxide 34 mmol/L (22-32); Chloride 99 mmol/L (98-107); Cholesterol 153 mg/dL (140-199); Estimated Glomerular Filt Rate > 60 mL/min (>60); Glucose 247 mg/dL (80-110); HDL Cholesterol 33 mg/dL (40-60); HEMOLYSIS < 15 (0-50); LDL Cholesterol Calculated 75 mg/dL (<100); Potassium 5.1 mmol/L (3.4-5.1); Sodium 138 mmol/L (137-145); Triglycerides 225 mg/dL (35-150)
[2024-03-11 13:57] LABS: NT-proBNP (BNP-Adult 18+) 283 pg/mL (<450)
== END ==
LOC: LAB 11:10
PROVIDERS: PCP Internal Medicine; Referring Provider Internal Medicine Cardiovascular Disease; Visit Provider Internal Medicine Cardiovascular Disease
DX: E78.5 Hyperlipidemia, unspecified (principal); I50.22 Chronic systolic (congestive) heart failure; I11.0 Hypertensive heart disease with heart failure
CPT/HCPCS: 36415; 51798; 80048; 80061; 81002; 83880; 85027; 99214

== ENCOUNTER → 2024-06-05 12:07 | Outpatient (CLI) | payer MEDICARE, SELFPAY ==
[2023-05-17 23:01] VITALS: BMI 382.4
[2024-06-05 13:28] LABS: Hemoglobin A1C% w Est Avg Glu 7.1 % (4.0-6.0)
[2024-06-05 13:33] LABS: BUN Creatinine Ratio 28.6 (6-22); Blood Urea Nitrogen 28 mg/dL (9-20); Calcium 8.9 mg/dL (8.4-10.2); Carbon Dioxide 32 mmol/L (22-32); Chloride 102 mmol/L (98-107); Estimated Glomerular Filt Rate > 60 mL/min (>60); Glucose 270 mg/dL (80-110); HEMOLYSIS < 15 (0-50); Potassium 4.4 mmol/L (3.4-5.1); Sodium 140 mmol/L (137-145)
== END ==
LOC: LAB 12:07
PROVIDERS: Urology; PCP Internal Medicine; Referring Provider Internal Medicine; Visit Provider Internal Medicine
DX: N40.1 Benign prostatic hyperplasia with lower urinary tract symptoms (principal); N13.8 Other obstructive and reflux uropathy; R97.20 Elevated prostate specific antigen [PSA]; E11.3219 Type 2 diabetes mellitus with mild nonproliferative diabetic retinopathy with macular edema, unspecified eye
CPT/HCPCS: 36415; 80048; 83036; 84153; 84154

== ENCOUNTER → 2024-09-16 08:49 | Outpatient (CLI) | payer MEDICARE, SELFPAY ==
[2023-05-17 23:01] VITALS: BMI 382.4
[2024-09-16 09:11] LABS: Hematocrit 42.4 % (41-53); Mean Corpuscular Hemoglobin 32.3 PG (26-34); Mean Corpuscular Volume 97.7 fL (80-100); Platelet Count 223 X10^3/uL (150-400); Red Blood Cell Count 4.34 X10^6/uL (4.5-5.9); Red Cell Distribution Width 14.2 % (11.6-14.8); White Blood Cell Count 6.2 X10^3/uL (4.5-11.0)
[2024-09-16 09:23] LABS: Hemoglobin A1C% w Est Avg Glu 6.5 % (4.0-6.0)
[2024-09-16 09:26] LABS: BUN Creatinine Ratio 21.9 (6-22); Blood Urea Nitrogen 23 mg/dL (9-20); Calcium 8.9 mg/dL (8.4-10.2); Carbon Dioxide 26 mmol/L (22-32); Chloride 106 mmol/L (98-107); Estimated Glomerular Filt Rate > 60 mL/min (>60); Glucose 180 mg/dL (80-110); HEMOLYSIS < 15 (0-50); Potassium 4.3 mmol/L (3.4-5.1); Sodium 142 mmol/L (137-145)
[2024-09-16 10:06] LABS: Creatinine Urine Random 105.48 mg/dL
[2024-09-16 10:11] LABS: Microalbumin Urine Random 4.8 mg/dL (0-1.6)
== END ==
PROVIDERS: PCP Internal Medicine; Referring Provider Internal Medicine; Visit Provider Internal Medicine
DX: E11.3219 Type 2 diabetes mellitus with mild nonproliferative diabetic retinopathy with macular edema, unspecified eye (principal); I50.22 Chronic systolic (congestive) heart failure
CPT/HCPCS: 36415; 80048; 82043; 82570; 83036; 85027

== ENCOUNTER → 2024-11-25 10:42 | Outpatient (CLI) | payer MEDICARE, SELFPAY ==
[2023-05-17 23:01] VITALS: BMI 382.4
[2024-11-25 11:06] LABS: Hematocrit 42.7 % (41-53); Mean Corpuscular HGB Conc 32.8 % (30-36); Mean Corpuscular Hemoglobin 32.2 PG (26-34); Mean Corpuscular Volume 98.1 fL (80-100); Platelet Count 247 X10^3/uL (150-400); Red Blood Cell Count 4.35 X10^6/uL (4.5-5.9); Red Cell Distribution Width 14.6 % (11.6-14.8); White Blood Cell Count 7.1 X10^3/uL (4.5-11.0)
[2024-11-25 11:27] LABS: BUN Creatinine Ratio 31.1 (6-22); Blood Urea Nitrogen 33 mg/dL (9-20); Calcium 8.8 mg/dL (8.4-10.2); Carbon Dioxide 32 mmol/L (22-32); Chloride 100 mmol/L (98-107); Estimated Glomerular Filt Rate > 60 mL/min (>60); Glucose 103 mg/dL (70-99); HEMOLYSIS < 15 (0-50); Potassium 4.7 mmol/L (3.4-5.1); Sodium 142 mmol/L (137-145)
[2024-11-25 11:36] LABS: NT-proBNP (BNP-Adult 18+) 288 pg/mL (<450)
== END ==
LOC: LAB 10:43
PROVIDERS: PCP Internal Medicine; Referring Provider Internal Medicine Cardiovascular Disease; Visit Provider Internal Medicine Cardiovascular Disease
DX: I50.22 Chronic systolic (congestive) heart failure (principal)
CPT/HCPCS: 36415; 80048; 83880; 85027

== ENCOUNTER → 2025-05-06 09:22 | Outpatient (CLI) | payer MEDICARE, SELFPAY ==
[2023-05-17 23:01] VITALS: BMI 382.4
--- NOTE | 2025-05-06 09:26 | DI.ECHO.S_ITS ---
[facility] : : [address] : : [place] : : [id number] : : Phone: [phone] Echocardiogram Report + + :Name: SOCO HORAN Study Date: 05/06/2025 Height: 70 in : :[facility] ReadingLocation: Weight: 245 lb: : Gender: Male BSA: 2.3 m2 : :: 1945 Age: 79 yrs BP: 86/52 mmHg: :Reason For Study: ISCHEMIC CARDIOMYOPATHY : :Ordering Physician: CIARAN, : :REINALDO Performed By: Ignacio Lara : :Referring: REINALDO APARICIO : + + Interpretation Summary Technically difficult study with limited visualization 1) Normal left ventricular size with moderately to severe reduced systolic function (EF 30-35%). 2) Grossly, normal right ventricular size with mildly reduced function. There is a pacemaker lead in the right ventricle. 3) No significant valvular abnormalities. 4) There is a moderate left-sided pleural effusion. 5) Compared to the echo done 02/26/2024, left sided pleural effusion is present on this study. Procedure: A two-dimensional transthoracic echocardiogram with color flow and Doppler was performed. A contrast injection of Definity was performed to improve assessment of LV function. The study quality was technically difficult. Comparison is made with the echocardiogram of 02/26/2024. The patient has a paced rhythm. Left Ventricle: The left ventricle is normal in size. Left ventricular wall thickness is mildly increased. There is no ventricular septal defect visualized. The ejection fraction is estimated to be 30-35%. There are regional wall motion abnormalities as specified. Diastolic parameters suggest a relaxation abnormality of the left ventricle, consistent with probable normal filling pressures. Right Ventricle: The right ventricle is not well visualized. The right ventricle is grossly normal size. There is a pacemaker lead in the right ventricle. Right ventricular systolic function is mildly reduced. Atria: The left atrium is not well visualized. Right atrium not well visualized. There is no Doppler evidence for an interatrial shunt. Mitral Valve: The mitral valve is grossly normal. There is no mitral regurgitation noted. Aortic Valve: The aortic valve is not well visualized. There is no hemodynamically significant valvular aortic stenosis. No aortic regurgitation is present. Tricuspid Valve: The tricuspid valve is not well visualized. No tricuspid regurgitation. Pulmonic Valve: The pulmonic valve is not well visualized. There is no pulmonic valvular regurgitation. Great Vessels: The aortic root is mildly dilated. The ascending aorta is mildly enlarged. The pulmonary is not well visualized. The IVC is of normal diameter and collapses greater than 50% with a sniff. This suggests a low right atrial pressure of 3 mm Hg. Pericardium/ Pleura There is a trivial pericardial effusion noted. There is a moderate left-sided pleural effusion. MMode/2D Measurements & Calculations LVIDd: 5.0 cm LVOT diam: 2.0 cm LVIDs: 4.2 cm Ao root diam: 3.8 cm FS: 15.0 % asc Aorta Diam: 4.2 cm EPSS: 1.5 cm IVSd: 1.2 cm LVPWd: 1.3 cm LV cronin. diameter/BSA (cm/m^2): 2.2 LV sys. diameter/BSA (cm/m^2): 1.9 IVC diam: 1.6 cm Doppler Measurements & Calculations Ao V2 max: 151.1 cm/sec LVOT Max Satinder: 70.6 cm/sec Ao V2 mean: 111.0 cm/sec LV V1 max P.0 mmHg Ao max P.1 mmHg LV V1 VTI: 12.6 cm Ao mean P.3 mmHg OBDULIA(I,D): 1.3 cm2 Ao V2 VTI: 30.8 cm OBDULIA(V,D): 1.4 cm2 sev ratio: 0.41 OBDULIA indexed to BSA (cm^2/m^2): 0.55 MV E max satinder: 39.1 cm/sec PA V2 max: 79.1 cm/sec MV A max satinder: 80.7 cm/sec PA V2 mean: 55.1 cm/sec MV E/A: 0.48 PA mean P.3 mmHg MV dec time: 0.09 sec PA pr(Accel): 51.6 mmHg SV(LVOT): 38.8 ml Reading Physician:12:26 PM
[2025-05-06 11:14] LABS: Hematocrit 42.3 % (41-53); Hemoglobin 13.9 g/dL (13.5-17.5); Mean Corpuscular HGB Conc 33.0 % (30-36); Mean Corpuscular Hemoglobin 32.1 PG (26-34); Mean Corpuscular Volume 97.2 fL (80-100); Platelet Count 278 X10^3/uL (150-400)
[2025-05-06 12:26] LABS: Blood Urea Nitrogen 29 mg/dL (9-20); Calcium 8.8 mg/dL (8.4-10.2); Carbon Dioxide 28 mmol/L (22-32); Chloride 105 mmol/L (98-107); Estimated Glomerular Filt Rate > 60 mL/min (>60); Glucose 111 mg/dL (70-99); Potassium 4.6 mmol/L (3.4-5.1); Sodium 144 mmol/L (137-145)
[2025-05-06 12:51] LABS: Prostate Specific Antigen 8.35 ng/mL (0.10-4.00)
[2025-05-08 09:34] LABS: HEMOLYSIS 15 (0-50); NT-proBNP (BNP-Adult 18+) 405 pg/mL (<450)
== END ==
PROVIDERS: Urology; PCP Internal Medicine; Referring Provider Internal Medicine; Visit Provider Internal Medicine Cardiovascular Disease
DX: I50.22 Chronic systolic (congestive) heart failure (principal); I25.5 Ischemic cardiomyopathy; R97.20 Elevated prostate specific antigen [PSA]; J90 Pleural effusion, not elsewhere classified; I77.810 Thoracic aortic ectasia; I77.89 Other specified disorders of arteries and arterioles; Z95.0 Presence of cardiac pacemaker
CPT/HCPCS: 36415; 80048; 83880; 84153; 85027; C8929; Q9957

== ENCOUNTER → 2025-05-14 11:37 | Outpatient (CLI) | payer MEDICARE, SELFPAY ==
[2023-05-17 23:01] VITALS: BMI 382.4
--- NOTE | 2025-05-14 11:39 | DI.RAD.S_ITS ---
PROCEDURE: XR CHEST 2V INDICATIONS: Chronic systolic (congestive) heart failure TECHNIQUE: 2 views of the chest were acquired. COMPARISON: [facility], CR, XR CHEST 2 VIEWS, 05/26/2024, 19:33. [facility], CR, XR CHEST 1V, 05/17/2023, 18:55. FINDINGS: Surgical changes and devices: Left-sided cardiac pacer device is in place. Multiple median sternotomy wires are present. Lungs and pleura: Right lung is clear. Small-moderate sized left pleural effusion. Minimal vascular prominence. No pneumothorax. Mediastinum: Mediastinal contours are normal. Heart size is enlarged. Bones and chest wall: No suspicious bony abnormalities. Soft tissues appear unremarkable. IMPRESSION: Cardiomegaly and left pleural effusion with minimal vascular prominence suggestive of pulmonary edema/CHF. Dictated by: Anand Garcia M.D. on 05/14/2025 at 21:13 Approved by: Anand Garcia M.D. on 05/14/2025 at 21:15
== END ==
PROVIDERS: PCP Internal Medicine; Referring Provider Internal Medicine Cardiovascular Disease; Visit Provider Internal Medicine Cardiovascular Disease
DX: J90 Pleural effusion, not elsewhere classified (principal); I50.22 Chronic systolic (congestive) heart failure; I51.7 Cardiomegaly
CPT/HCPCS: 71046